=== PATIENT | female | born 1935 | race Caucasian/White ===

== ENCOUNTER 2018-07-01 19:29 | Inpatient (IN) | payer MEDICARE, BC ==
[~2018-07-01] VITALS: Ht 165.1 cm; Wt 72.1 kg
[~2018-07-01 19:29] MED LIST: ASPI-869 PO; BACL10TA PO; CHOL100044 PO; FURO20TA4 PO; LEVO88TA5 PO; METO25TA3 PO; MULT-24 PO; VALS80TA2 PO; [UNRECOGNIZED DRUG - CODE] PO
--- NOTE | 2018-07-01 19:29 | NUR ---
BBRA FROM HOME C/C PRESSURE LIKE CP NON RADIATING SINCE 1500 S/P TAKING 2 CBP OILD DROPS. +N/-V/-SOB. PRESSURE IN NECK/HEAD. PT IS HYPERTENSIVE BUT OTHERWISE VSS NO ACUTE DISTRESS NOTED AT THIS TIME. BREATHING RATE WNL WITH 02 SATURATION 94% ON BUT WILL PLACE ON 02. SKIN WARM AND INTACT. WILL CONTINUE TO MONITOR FOR ANY CHANGES DURING THE SHIFT.
--- NOTE | 2018-07-01 19:30 | NUR ---
ER MD RODRIGUEZ AT BEDSIDE
[2018-07-01 20:30] LABS: HEMATOCRIT 35 % (33-45); HEMOGLOBIN 12.2 g/dL (11.5-14.8); MEAN CORPUSCULAR HEMOGLOBIN 32 PG (26.0-33.0); MEAN CORPUSCULAR HGB CONC 35 g/dl (31.0-36.0); MEAN CORPUSCULAR VOLUME 93 fL (82-100); PLATELET COUNT (AUTO) 171 /CMM (150-450); WHITE BLOOD COUNT (AUTO) 9.2 K/uL (4.3-11.0)
--- NOTE | 2018-07-01 20:30 | NUR ---
BLOOD SENT TO LAB
--- NOTE | 2018-07-01 20:35 | NUR ---
PT OFF TO CT
[2018-07-01 20:39] LABS: CALCIUM, SERUM 8.7 mg/dL (8.5-10.1); CARBON DIOXIDE 34 mmol/L (21-32); CHLORIDE 104 mmol/L (98-107); GLUCOSE 151 mg/dL (74-106); POTASSIUM 5.3 mmol/L (3.5-5.1); SODIUM SERUM 139 mmol/L (136-145); UREA NITROGEN, BLOOD 46 mg/dL (7-18)
--- NOTE | 2018-07-01 20:40 | NUR ---
PT BACK FROM CT
[2018-07-01 20:43] LABS: INR 0.89 (0.85-1.15)
--- NOTE | 2018-07-01 20:49 | NUR ---
CALLED NURSING EGG PRODUCER AND REQUESTED A TELE BED FOR THIS PT.
--- NOTE | 2018-07-01 21:05 | NUR ---
PT IS ASSIGNED TO [facility]#: [id number], DX: ACUTE VERTIGO, AND ACCEPTING: KEMI PORTILLO DNP.
[2018-07-01 21:26] LABS: TROPONIN I 0.018 ng/mL (0.00-0.056)
[2018-07-01] MEDS ORDERED: ASPIRIN EC 325 MG TABLET.DR PO ONE ×2 (21:28→21:30)
--- NOTE | 2018-07-01 21:29 | NUR ---
CALLED [facility] FOR PANEL CALL AND KEMI PORTILLO WAS PAGED
[2018-07-01 21:42] LABS: BAND % (MANUAL) 1 % (0.0-5.0); EOSINOPHILS % (MANUAL) 2 % (0-4); LYMPHOCYTES % (MANUAL) 24 % (16-48); MONOCYTES % (MANUAL) 5 % (0-11.0); NEUTROPHILS % (MANUAL) 68 (42-76)
--- NOTE | 2018-07-01 21:52 | NUR ---
REPORT GIVEN TO ASHISH
[2018-07-01] MEDS ORDERED: CLON0.1T PO (21:55)
[2018-07-01 22:10] VITALS: BP 181/81
--- NOTE | 2018-07-01 22:20 | NUR ---
FREIGHT TEAM ASSOCIATELINE LEADER NOTES Received patient from ER around 2200 via stretcher accompanied by [facility] ER Nurse. Chief complaints of pressure in the head/neck/dizziness. Alert and oriented x4, verbally responsive. Denies any pain at the moment. Received patient on oxygen therapy @2LPM via nasal cannula. No SOB/labored breathing noted or reported. Not in any type of distress. Afebrile. Skin body assessment done. Pacemaker on left upper chest wall noted. Belongings checked by CREDIT NEGOTIATOR. Tele monitor shows: Sinus Rhythm; HR 63. IV on left antecubital #20g; patent and intact. SBp on the higher side. Will inform hospitalist kevin. Safety measures in place. Bed in locked and lowest position with call light within reach. Will continue to monitor and assess patient.
--- NOTE | 2018-07-01 22:30 | NUR ---
FAMILY CONTACT INFORMATION: Lawson (Son) [phone] Rica (dtr) [phone] Yolanda (dtr) [phone] Artie Subramanian (Cyber Transport Systems Specialist) [phone]
[2018-07-01 22:36] LABS: APPEARANCE,URINE CLEAR (CLEAR); BILIRUBIN,URINE NEGATIVE (NEGATIVE); BLOOD, URINE NEGATIVE Ery/uL (NEGATIVE); COLOR,URINE YELLOW (YELLOW); KETONES,URINE NEGATIVE (NEGATIVE); LEUKOCYTE ESTERASE ,URINE TRACE (NEGATIVE); NITRITE, URINE NEGATIVE (NEGATIVE); PROTEIN,URINE NEGATIVE (NEGATIVE); UGLUCOSE NEGATIVE (NEGATIVE); UROBILINOGEN,URINE 0.2 EU/dL (0.2)
[2018-07-01 23:04] LABS: BACTERIA,URINE None seen /HPF (None Seen); RBC,URINE NONE SEEN /HPF (0-2); SQUAMOUS EPITHELIAL CELL,UR Few /HPF (None Seen); WBC,URINE 0-2 /HPF (0-3)
--- NOTE | 2018-07-01 23:07 | NUR ---
NURSES' ASSOCIATION EXECUTIVE DIRECTOR NOTES Paged Nery Singh DNP for new admit orders. Awaiting for call back and orders
[2018-07-01] MEDS ORDERED: IV NS 0.9% 1,000 ML IV PRN (23:11)
--- NOTE | 2018-07-01 23:29 | NUR ---
INSPECTOR CRYSTAL - NEW ORDER NOTES Nery Singh made aware of SBP 180s. Received a new order of Hydralazine 25mg PO Once for high blood pressure.
[2018-07-01] MEDS ORDERED: Z GUARD REMEDY 2 OZ OINT TP PRN (23:30)
[2018-07-01] MEDS ORDERED: hydrALAZINE HCL 25 MG TABLET PO SCH (23:30)
[2018-07-02] VITALS (7 sets, daily range): BP systolic 146–190; BP diastolic 61–95
--- NOTE | 2018-07-02 00:30 | NUR ---
DATA ENTRY MANAGER - REASSESSMENT NOTES BP: 161/78 P: 64 BP is trending down down. Will continue to monitor patient
[2018-07-02 07:27] LABS: BASOPHILS % (AUTO) 0.2 % (0.0-2.0); EOSINOPHILS % (AUTO) 2.4 % (0.0-6.0); HEMATOCRIT 33 % (33-45); HEMOGLOBIN 11.2 g/dL (11.5-14.8); LYMPHOCYTES # (AUTO) 1.3 /CMM (0.8-4.8); LYMPHOCYTES % (AUTO) 19.9 % (20.0-44.0); MEAN CORPUSCULAR HEMOGLOBIN 32 PG (26.0-33.0); MEAN CORPUSCULAR HGB CONC 34 g/dl (31.0-36.0); MEAN CORPUSCULAR VOLUME 95 fL (82-100); MONOCYTES # (AUTO) 0.5 /CMM (0.1-1.30); MONOCYTES % (AUTO) 6.7 % (2.0-12.0); NEUTROPHILS # (AUTO) 4.8 /CMM (1.8-8.9); NEUTROPHILS % (AUTO) 70.8 % (43.0-81.0); PLATELET COUNT (AUTO) 154 /CMM (150-450); RDW COEFFICIENT OF VARIATION 12.9 (11.5-15.0); RED BLOOD CELL COUNT(AUTO) 3.46 MIL/uL (4.0-5.2); WHITE BLOOD COUNT (AUTO) 6.7 K/uL (4.3-11.0)
[2018-07-02 07:48] LABS: ALANINE AMINOTRANSFERASE 15 U/L (12-78); ALBUMIN 3.2 g/dL (3.4-5.0); ALKALINE PHOSPHATASE 65 U/L (46-116); ASPARTATE AMINOTRANSFERASE 17 U/L (15-37); BILIRUBIN,TOTAL 0.3 mg/dL (0.2-1.0); CALCIUM, SERUM 8.5 mg/dL (8.5-10.1); CARBON DIOXIDE 34 mmol/L (21-32); CHLORIDE 103 mmol/L (98-107); CREATININE 1.7 mg/dL (0.6-1.3); GLUCOSE 92 mg/dL (74-106); MAGNESIUM 2.4 mg/dL (1.8-2.4); PHOSPHORUS 4.2 mg/dL (2.5-4.9); POTASSIUM 4.5 mmol/L (3.5-5.1); SODIUM SERUM 139 mmol/L (136-145); TOTAL PROTEIN, SERUM 6.7 g/dL (6.4-8.2); UREA NITROGEN, BLOOD 45 mg/dL (7-18)
[2018-07-02 07:51] LABS: CHOLESTEROL 262 mg/dL (<200); HDL CHOLESTEROL 60 mg/dL (40-60); LDL 153 mg/dL (0-99); THYROID STIMULATING HORMONE 0.883 uIU/mL (0.358-3.74); TRIGLYCERIDES 185 mg/dL (30-150)
[2018-07-02] MEDS: CHOLECALCIFEROL 1,000 UNIT TABLET (VIT D3) PO SCH (08:10)
[2018-07-02] MEDS: MULTIVITAMINS,THERAGRAN 1 UDTAB TABLET PO SCH (08:10)
[2018-07-02] MEDS: LEVOTHYROXINE SODIUM 88 MCG TABLET PO SCH (08:10)
[2018-07-02] MEDS: VALSARTAN 80 MG TABLET PO SCH ×2 (08:10→20:12)
[2018-07-02] MEDS: ASPIRIN EC 325 MG TABLET.DR PO SCH (08:11)
[2018-07-02] MEDS: FUROSEMIDE 20 MG TABLET PO SCH (08:11)
[2018-07-02] MEDS: METOPROLOL SUCCINATE 25 MG TAB.SR.24H PO SCH ×2 (08:11→20:12)
--- NOTE | 2018-07-02 08:30 | NUR ---
PATIENT'S BP IS 190/90 MANUALLY. BLOOD PRESSURE MEDICATIONS ADMINISTERED AT THIS TIME. WILL CONTINUE TO MONITOR.
--- NOTE | 2018-07-02 09:00 | NUR ---
PATIENT'S BP IS 158/73, IS TRENDING DOWN . WILL CONTINUE TO MONITOR FOR CHANGES.
--- NOTE | 2018-07-02 09:28 | NUR ---
PARKING TECHNICIAN OPENING NOTE RECEIVED PATIENT IN BED. ALERT ORIENTED X4. ON 2L O2 VIA NC TOLERATING WELL. IN NO APPARENT DISTRESS OR DISCOMFORT AT THIS TIME. RESPIRATIONS EVEN AND UNLABORED. ABLE TO COMMUNICATE NEEDS. MADDY PAIN AND SOB AT THIS TIME. PATIENT ON TELE MONITORING WITH SINUS RHYTHM. PACEMAKER IN PLACE ON LEFT UPPER CHEST WALL. LEFT AC 20G IVC AT 75 ML/HR. EDEMA PRESENT ON BLE. ALL NEEDS ATTENDED. KEPT CLEAN AND COMFORTABLE. SAFETY MEASURES IN PLACE. BED IN LOW LOCKED POSITION, SIDE RAILS UP X2, CALL LIGHT WITHIN EASY REACH. WILL CONTINUE TO MONITOR.
[2018-07-02] MEDS: CLONIDINE HCL 0.1 MG TABLET PO PRN ×2 (14:19→21:10)
[2018-07-02] MEDS ORDERED: CLONIDINE HCL 0.1 MG TABLET PO SCH (18:00)
--- NOTE | 2018-07-02 19:46 | NUR ---
PRORATE CLERK CLOSING NOTE PATIENT IN BED. ALERT ORIENTED X4. ON ROOM AIR, TOLERATING WELL. IN NO APPARENT DISTRESS OR DISCOMFORT AT THIS TIME. RESPIRATIONS EVEN AND UNLABORED. ABLE TO COMMUNICATE NEEDS. MADDY PAIN AND SOB AT THIS TIME. PATIENT ON TELE MONITORING WITH SINUS RHYTHM AND OCCASIONAL AV PACING. PACEMAKER IN PLACE ON LEFT UPPER CHEST WALL. LEFT AC 20G IVC AT 75 ML/HR. EDEMA PRESENT ON BLE, IMPROVED SIGNIFICANTLY WITH LASIX. ABLE TO USE BATHROOM INDEPENDENTLY, BEDSIDE COMMODE PROVIDED FOR CONVENIENCE. ALL NEEDS ATTENDED. KEPT CLEAN AND COMFORTABLE. SAFETY MEASURES IN PLACE. BED IN LOW LOCKED POSITION, SIDE RAILS UP X2, CALL LIGHT WITHIN EASY REACH. WILL ENDORSE TO PM NURSE FOR RENAE.
--- NOTE | 2018-07-02 19:59 | NUR ---
TELE/RN OPENING NOTES RECEIVED PATIENT IN BED, AWAKE, ALERT, X3, ABLE TO FOLLOW COMMANDS AND VERBALIZED NEEDS, NO PAIN REPORTED, VITAL SIGNS CHECK, TELE MONITOR AT SR 68, WITH PACE MAKER OF LCW, B/P ELEVATED , WILL MONITOR, SKIN WARM TO TOUCH, ABLE TO TOLERATE FLUIDS, LEFT AC GAUGE 20 PATENT AND WITH NO S/S OF INFILTRATION, WILL CONTINUE TO MONITOR.
--- NOTE | 2018-07-02 21:14 | NUR ---
TELE/RN NOTES PATIENT RE CHECK B/P STILL ELEVATED AT 200/70, ALERT, ORIENTED, GIVEN PRN CLONIDINE IF SBP > 160, ABLE TO SWALLOW, ATTEND TO NEEDS, AND CONCERNS, ABLE TO VERBALIZE NEEDS, WILL MONITOR.
[2018-07-02] MEDS: ONDANSETRON HCL/PF 4 MG/2 ML VIAL IVP PRN (21:26)
--- NOTE | 2018-07-02 21:33 | NUR ---
tele/rn notes PATIENT REPORTED HAVING NAUSEA, HAD ONE VOMITING EPISODE, PROVIDED NEEDED ZOFRAN, KEEP COMFORTABLE, WILL MONITOR
[2018-07-02] MEDS ORDERED: BACLOFEN (10 MG) 10 MG TABLET PO SCH (22:00)
[2018-07-02] MEDS: ACETAMINOPHEN 325 MG TABLET PO PRN (22:12)
[2018-07-03 04:00] VITALS: BP_SYST 118; BP_SYST 156; BP_DIAS 66; BP_DIAS 72
[2018-07-03] MEDS: ACETAMINOPHEN 325 MG TABLET PO PRN (04:22)
[2018-07-03] MEDS: ONDANSETRON HCL/PF 4 MG/2 ML VIAL IVP PRN (04:22)
[2018-07-03 05:05] VITALS: BP 123/69
[2018-07-03 07:16] LABS: BASOPHILS % (AUTO) 0.3 % (0.0-2.0); EOSINOPHILS % (AUTO) 2.6 % (0.0-6.0); HEMATOCRIT 31 % (33-45); HEMOGLOBIN 10.5 g/dL (11.5-14.8); LYMPHOCYTES # (AUTO) 1.3 /CMM (0.8-4.8); LYMPHOCYTES % (AUTO) 17.5 % (20.0-44.0); MEAN CORPUSCULAR HEMOGLOBIN 32 PG (26.0-33.0); MEAN CORPUSCULAR HGB CONC 33 g/dl (31.0-36.0); MEAN CORPUSCULAR VOLUME 96 fL (82-100); MONOCYTES # (AUTO) 0.4 /CMM (0.1-1.30); MONOCYTES % (AUTO) 6.3 % (2.0-12.0); NEUTROPHILS # (AUTO) 5.3 /CMM (1.8-8.9); NEUTROPHILS % (AUTO) 73.3 % (43.0-81.0); PLATELET COUNT (AUTO) 148 /CMM (150-450); RDW COEFFICIENT OF VARIATION 12.7 (11.5-15.0); RED BLOOD CELL COUNT(AUTO) 3.27 MIL/uL (4.0-5.2); WHITE BLOOD COUNT (AUTO) 7.2 K/uL (4.3-11.0)
[2018-07-03 07:26] LABS: CALCIUM, SERUM 8.5 mg/dL (8.5-10.1); CARBON DIOXIDE 33 mmol/L (21-32); CHLORIDE 104 mmol/L (98-107); CREATININE 1.7 mg/dL (0.6-1.3); GLUCOSE 103 mg/dL (74-106); POTASSIUM 5.1 mmol/L (3.5-5.1); SODIUM SERUM 140 mmol/L (136-145); UREA NITROGEN, BLOOD 37 mg/dL (7-18)
--- NOTE | 2018-07-03 07:40 | NUR ---
329-1 TELE/RN NOTES PATIENT ABLE TO SLEEP FEW HOURS, MONITORED FOR ANY PAIN OR DISCOMFORT, B/P CHECK AND RECORDER, ZOFRAN GIVEN FOR NAUSEA. CALL LIGHTS WITHIN REACH, BED IN LOCK POSITION. WILL MONITOR.
--- NOTE | 2018-07-03 07:56 | NUR ---
MARINE FIRE FIGHTER OPENING NOTES RECEIVED PT FROM NIGHTSHIFT NURSE IN STABLE CONDITION. PT IS A/O X4. NO SOB OR SIGNS OF ACUTE DISTRESS NOTED. BREATHING IS EVEN AND UNLABORED. PT ON RA AND SATING WELL. SHE DENIES ANY DIZZINESS OR WEAKNESS AT THIS TIME. IV TO LEFT AC NOTED TO BE PATENT AND INTACT. NS INFUSION HELD AT THIS TIME PER PT'S REQUEST. PT IS SINUS RHYTHM ON THE TELE MONITOR WITH A HR OF 65. BED IN LOW LOCKED POSITION, SIDE RAILS UP Z2, CALL LIGHT WITHIN REACH. WILL CONTINUE TO MONITOR
[2018-07-03 08:00] VITALS: BP 125/56
[2018-07-03] MEDS: MULTIVITAMINS,THERAGRAN 1 UDTAB TABLET PO SCH (08:21)
[2018-07-03] MEDS: FUROSEMIDE 20 MG TABLET PO SCH (08:21)
[2018-07-03] MEDS: ASPIRIN EC 325 MG TABLET.DR PO SCH (08:21)
[2018-07-03] MEDS: LEVOTHYROXINE SODIUM 88 MCG TABLET PO SCH (08:21)
[2018-07-03] MEDS: CHOLECALCIFEROL 1,000 UNIT TABLET (VIT D3) PO SCH (08:22)
[2018-07-03] MEDS: METOPROLOL SUCCINATE 25 MG TAB.SR.24H PO SCH (08:22)
[2018-07-03] MEDS: VALSARTAN 80 MG TABLET PO SCH (08:25)
[2018-07-03] MEDS ORDERED: ATOR20TA PO (10:11)
[2018-07-03] MEDS ORDERED: LOSA1TAB39 PO (10:11)
[2018-07-03 11:30] VITALS: BP 124/61
--- NOTE | 2018-07-03 11:59 | NUR ---
PROCESS IMPROVEMENT ENGINEERSULKY DRIVER NOTES PT WAS DISCHARGED FROM FACILITY IN STABLE CONDITION. ALL NEEDS WERE MET DURING SHIFT AND ORDERS CARRIED OUT ACCORDINGLY. ALL DUE MEDS GIVEN. IV WAS SUCCESSFULLY REMOVED WITH CATHETER TIP INTACT. DISCHARGE INSTRUCTIONS DISCUSSED WITH PT. PT SIGNED ALL D/C PAPERWORK. BELONGINGS VERIFIED PRIOR TO D/C. COPIES OF ALL D/C PAPERWORK INCLUDING PRESCRIPTION MADE AND PLACED IN PT'S CHART. SHE WAS SAFELY ESCORTED TO THE MAIN LOBBY BY THE ASSOCIATE DRAFTER AND LEFT VIA PRIVATE VEHICLE DRIVEN BY HER SON.
== END 2018-07-03 10:00 | disposition home or self-care (01) | DRG 304 ==
LOC: ER 19:30 → TELE 21:38
PROVIDERS: ADMIT Nurse Practitioner Acute Care; ATTEND Nurse Practitioner Acute Care
DX: I16.9 Hypertensive crisis, unspecified (principal); N17.0 Acute kidney failure with tubular necrosis; I42.2 Other hypertrophic cardiomyopathy; H81.10 Benign paroxysmal vertigo, unspecified ear; N18.9 Chronic kidney disease, unspecified; I12.9 Hypertensive chronic kidney disease with stage 1 through stage 4 chronic kidney disease, or unspecified chronic kidney disease; I25.10 Atherosclerotic heart disease of native coronary artery without angina pectoris; E87.5 Hyperkalemia; E03.9 Hypothyroidism, unspecified; M19.90 Unspecified osteoarthritis, unspecified site; Z88.5 Allergy status to narcotic agent; Z91.040 Latex allergy status; Z91.011 Allergy to milk products; Z79.82 Long term (current) use of aspirin; Z79.899 Other long term (current) drug therapy; R01.1 Cardiac murmur, unspecified; E86.9 Volume depletion, unspecified; T46.5X5A Adverse effect of other antihypertensive drugs, initial encounter; Y92.009 Unspecified place in unspecified non-institutional (private) residence as the place of occurrence of the external cause
CPT/HCPCS: 36415; 70450-TC; 71045-TC; 80048-TC; 80053-TC; 80061-TC; 81000-TC; 82962-TC; 83605-TC; 83735-TC; 84100-TC; 84443-TC; 84484-TC; 85025-TC; 85730-TC; 87081-TC; 93307-TC; A4606; J2405; J7030; Z7610

== ENCOUNTER 2018-07-28 00:24 | Inpatient (IN) | payer MEDICARE, BC ==
[~2018-07-28] VITALS: Ht 170.2 cm; Wt 72.1 kg
[~2018-07-28 00:24] MED LIST changes: +ATOR20TA PO; +CLON0.1T PO; +LOSA1TAB39 PO; -VALS80TA2 PO
--- NOTE | 2018-07-28 00:38 | NUR ---
PT TO ER BED 4. BIBRA 99 FOR WITNESSED SYNCOPAL EPISODE BY FAM X 30 MINS GANG SAW OPERATOR. FIELD BS 150. PT PLACED IN GOWN AND ON BOX TRUCK OWNER OPERATOR. VSS/RESP EVEN UNLABORED/NAD NOTED/SKIN WARM AND DRY/AFEBRILE/DENIES N-V-D/AOX4. AWAITNG MD ALBRECHT.
[2018-07-28] MEDS ORDERED: VALS160T2 PO (00:53)
[2018-07-28] MEDS ORDERED: METO100T14 PO (00:53)
[2018-07-28] MEDS ORDERED: BACL10TA PO (00:53)
[2018-07-28] MEDS ORDERED: LEVO100T9 PO (00:53)
[2018-07-28] MEDS ORDERED: ALPR0.5T8 PO (00:53)
--- NOTE | 2018-07-28 00:53 | NUR ---
LAB AT BEDSIDE FOR DRAW.
[2018-07-28 01:01] LABS: BASOPHILS % (AUTO) 0.2 % (0.0-2.0); EOSINOPHILS % (AUTO) 1.6 % (0.0-6.0); HEMATOCRIT 35 % (33-45); HEMOGLOBIN 11.9 g/dL (11.5-14.8); LYMPHOCYTES # (AUTO) 1.3 /CMM (0.8-4.8); LYMPHOCYTES % (AUTO) 14.9 % (20.0-44.0); MEAN CORPUSCULAR HGB CONC 35 g/dl (31.0-36.0); MEAN CORPUSCULAR VOLUME 92 fL (82-100); MONOCYTES # (AUTO) 0.5 /CMM (0.1-1.30); MONOCYTES % (AUTO) 5.7 % (2.0-12.0); NEUTROPHILS # (AUTO) 6.8 /CMM (1.8-8.9); NEUTROPHILS % (AUTO) 77.6 % (43.0-81.0); PLATELET COUNT (AUTO) 209 /CMM (150-450); RDW COEFFICIENT OF VARIATION 12.4 (11.5-15.0); RED BLOOD CELL COUNT(AUTO) 3.76 MIL/uL (4.0-5.2); WHITE BLOOD COUNT (AUTO) 8.8 K/uL (4.3-11.0)
--- NOTE | 2018-07-28 01:01 | NUR ---
PT TO CT VIA STRETCHER.
[2018-07-28 01:09] LABS: INR 0.94 (0.87-1.13)
[2018-07-28 01:11] LABS: TROPONIN I 0.035 ng/mL (0.00-0.056)
[2018-07-28 01:17] LABS: ALANINE AMINOTRANSFERASE 63 U/L (12-78); ALBUMIN 3.2 g/dL (3.4-5.0); ALKALINE PHOSPHATASE 70 U/L (46-116); ASPARTATE AMINOTRANSFERASE 60 U/L (15-37); BILIRUBIN,DIRECT 0.1 mg/dL (0.0-0.2); BILIRUBIN,TOTAL 0.7 mg/dL (0.2-1.0); CALCIUM, SERUM 8.5 mg/dL (8.5-10.1); CARBON DIOXIDE 30 mmol/L (21-32); CREATININE 1.4 mg/dL (0.6-1.3); GLUCOSE 127 mg/dL (74-106); POTASSIUM 3.4 mmol/L (3.5-5.1); TOTAL PROTEIN, SERUM 6.5 g/dL (6.4-8.2); UREA NITROGEN, BLOOD 32 mg/dL (7-18)
[2018-07-28 01:22] LABS: SODIUM SERUM 112 mmol/L (136-145)
[2018-07-28 01:23] LABS: CHLORIDE 75 mmol/L (98-107)
--- NOTE | 2018-07-28 02:40 | NUR ---
Luis oneill in [facility] - 07/28/18 at 0307 by RISHI JEFRY TO REPORT REJI YUAN FOR RENAE.
--- NOTE | 2018-07-28 02:40 | NUR ---
REPORT GIVEN TO REJI YUAN FOR RENAE.
[2018-07-28] MEDS ORDERED: ALBUTEROL HALF STRENGTH 1.25 MG/3 ML VIAL.NEB NEB PRN (03:00)
[2018-07-28] MEDS ORDERED: IV PREMIX NS +20MEQ KCL 1 L IV PRN (03:00)
--- NOTE | 2018-07-28 03:00 | NUR ---
RN ADMITTING [facility] NOTE RECEIVED 83YR OLD F AOX3 SLIGHTLY WEAK, ABLE TO ANSWER QUESTIONS, FROM ER, REPORT GIVEN BY ISAC ZELAYA RN, PT BB AFTER FAMILY WITNESSED SYNCOPE [id number], ADMITTED FOR SYNCOPE/HYPONATREMIA, Na 112 L, K+ 3.5. W/LCW PACE MAKER, EKG IN ER NSR PACING 63, LAC#20G, SKIN ISSUES NOTED, PHOTOS TAKEN AND FILED. DR KIM ADMITTING ORDERS ENTERED/ PROTOCOL IV PRMIXX1 NS 20MEQ@75ML/HR.APRESOLINE 25MG PO GIVEN FOR BP 178/71 63. ALL NEEDS MET, WILL CONT TO MONITOR.
--- NOTE | 2018-07-28 03:07 | NUR ---
PT TRANSPORTED VIA STRETCHER TO [facility] ON PLANT SAFETY LEADER WITH RN PER ACLS PROTOCOL.
[2018-07-28 03:32] VITALS: BP 178/71
[2018-07-28 04:00] VITALS: BP 160/66
[2018-07-28] MEDS ORDERED: IV PREMIX NS +20MEQ KCL 1 L IV ONE (04:01)
[2018-07-28] MEDS: hydrALAZINE HCL 10 MG TABLET PO PRN ×2 (04:37→12:02)
--- NOTE | 2018-07-28 06:07 | NUR ---
RN [facility] CLOSING NOTE ALL NEEDS MET, SAFETY AND ADMITTING ORDERS CARRIED OUT, WILL ENDORSE PT FOR RENAE. PT MORE AWAKE, ABLE TO COMMUNICATE NEEDS VERBALLY, W/USE OF CL.
[2018-07-28 06:37] LABS: BASOPHILS % (AUTO) 0.1 % (0.0-2.0); EOSINOPHILS % (AUTO) 0.4 % (0.0-6.0); HEMATOCRIT 36 % (33-45); HEMOGLOBIN 12.2 g/dL (11.5-14.8); LYMPHOCYTES % (AUTO) 6.8 % (20.0-44.0); MEAN CORPUSCULAR HGB CONC 34 g/dl (31.0-36.0); MEAN CORPUSCULAR VOLUME 92 fL (82-100); MONOCYTES # (AUTO) 0.8 /CMM (0.1-1.30); MONOCYTES % (AUTO) 5.3 % (2.0-12.0); NEUTROPHILS # (AUTO) 12.6 /CMM (1.8-8.9); NEUTROPHILS % (AUTO) 87.4 % (43.0-81.0); PLATELET COUNT (AUTO) 212 /CMM (150-450); RDW COEFFICIENT OF VARIATION 12.6 (11.5-15.0); RED BLOOD CELL COUNT(AUTO) 3.91 MIL/uL (4.0-5.2); WHITE BLOOD COUNT (AUTO) 14.4 K/uL (4.3-11.0)
[2018-07-28 06:56] LABS: CALCIUM, SERUM 8.5 mg/dL (8.5-10.1); CARBON DIOXIDE 29 mmol/L (21-32); CREATININE 1.5 mg/dL (0.6-1.3); GLUCOSE 108 mg/dL (74-106); MAGNESIUM 1.9 mg/dL (1.8-2.4); PHOSPHORUS 3.7 mg/dL (2.5-4.9); UREA NITROGEN, BLOOD 30 mg/dL (7-18)
[2018-07-28 07:05] LABS: IRON, SERUM 88 ug/dl (50-175); TOTAL IRON BINDING CAPACITY 301 ug/dl (250-450)
[2018-07-28 07:37] LABS: CHLORIDE 77 mmol/L (98-107); SODIUM SERUM 112 mmol/L (136-145)
[2018-07-28] MEDS: LEVOTHYROXINE SODIUM 88 MCG TABLET PO SCH (07:44)
[2018-07-28] MEDS: PANTOPRAZOLE 40 MG TABLET.DR PO SCH (07:44)
--- NOTE | 2018-07-28 07:45 | NUR ---
RN NOTE RECEIVED PATIENT ALERT AND ORIENTED X3, SHE IS ABLE TO MAKE THINGS KNOWN AND VERBALIZE NEEDS. BREATHING EVEN AND UNLABORED WITH NO DISTRESS NOTED. ON PYTHON PROGRAMMER SINUS RHYTHM WITH 1ST DEGREE AV BLOCK. IV SITE INTACT AND PATENT. ALL SAFETY MEASURES DONE. BED LOW AND LOCKED POSITION. PLACED CALL LIGHT WITHIN REACH. WILL CONTINUE TO MONITOR.
[2018-07-28 08:00] VITALS: BP 146/66
[2018-07-28] MEDS: ASPIRIN EC 81 MG TABLET.DR PO SCH (08:09)
[2018-07-28] MEDS: METOPROLOL TARTRATE 50 MG TABLET PO SCH ×2 (08:10→21:37)
[2018-07-28 12:00] VITALS: BP 155/68
--- NOTE | 2018-07-28 12:05 | NUR ---
RN NOTE PATIENT SBP IS 183, HYDRALAZINE 25MG GIVEN PRN. WILL CONTINUE TO MONITOR B/P
--- NOTE | 2018-07-28 12:35 | NUR ---
RN NOTE PATIENT SBP 155, PATENT REMAINED STABLE WILL CONTINUE TO MONITOR.
[2018-07-28] MEDS ORDERED: IV Sodium Chloride 3% 500 ML 500 ML IV ONE (13:30)
--- NOTE | 2018-07-28 14:00 | NUR ---
RN NOTE REPORT GIVEN TO CARRIE FOR CONTINUITY OF CARE.
--- NOTE | 2018-07-28 14:15 | NUR ---
PROCESSING MANAGER NOTE RECEIVED PATIENT IN STABLE CONDITION RESTING IN BED. ABLE TO MAKE NEEDS KNOWN. IV SITE ON LEFT AC INTACT. BED LOW AND LOCKED, CALL LIGHT WITHIN REACH, WILL CONTINUE TO MONITOR.
[2018-07-28] MEDS: ACETAMINOPHEN 325 MG TABLET PO PRN (14:19)
[2018-07-28 16:00] VITALS: BP 160/77
--- NOTE | 2018-07-28 17:15 | NUR ---
Patient is alert and pleasant,lives at home with her family, she is ambulatory and independent with ADLs. No DME or homehealth reported. Family is involved and supportive, they will provide ride when discharge. Addendum: 07/28/18 at 1716 by BHAVNA MACIEL RN Amended: Links added.
--- NOTE | 2018-07-28 19:54 | NUR ---
ASSET PROTECTION SPECIALIST CLOSING NOTE PATIENT RESTING IN BED, ALL NEEDS MET AT THIS TIME. NO RESPIRATORY DISTRESS NOTED, ON ROOM AIR. IV SITE ON LEFT AC INTACT INFUSING 3% SODIUM CHLORIDE. BED LOW AND LOCKED, CALL LIGHT WITHIN REACH. WILL ENDORSE TO ONCOMING NURSE FOR CONTINUITY OF CARE.
[2018-07-28 20:00] VITALS: BP 135/63
--- NOTE | 2018-07-28 20:55 | NUR ---
RN MS INITIAL NOTE RECEIVED PATIENT IN STABLE CONDITION RESTING IN BED. ABLE TO MAKE NEEDS KNOWN. IV SITE ON LEFT AC INTACT, ON 3%NS@30ML/HR, WELL SILVIA, Na 113. BED LOW AND LOCKED, CALL LIGHT WITHIN REACH, WILL CONTINUE TO MONITOR.
[2018-07-28] MEDS ORDERED: EZETIMIBE 10 MG TABLET PO SCH (22:00)
[2018-07-28] MEDS ORDERED: ATORVASTATIN 10 MG TABLET PO SCH (22:00)
[2018-07-29] VITALS (8 sets, daily range): BP systolic 115–193; BP diastolic 54–89
[2018-07-29] MEDS: ACETAMINOPHEN 325 MG TABLET PO PRN ×3 (01:54→20:32)
[2018-07-29 06:30] LABS: BASOPHILS % (AUTO) 0.1 % (0.0-2.0); HEMATOCRIT 31 % (33-45); HEMOGLOBIN 10.7 g/dL (11.5-14.8); LYMPHOCYTES # (AUTO) 1.1 /CMM (0.8-4.8); LYMPHOCYTES % (AUTO) 14.3 % (20.0-44.0); MEAN CORPUSCULAR HGB CONC 34 g/dl (31.0-36.0); MEAN CORPUSCULAR VOLUME 92 fL (82-100); MONOCYTES # (AUTO) 0.8 /CMM (0.1-1.30); MONOCYTES % (AUTO) 10.5 % (2.0-12.0); NEUTROPHILS # (AUTO) 5.8 /CMM (1.8-8.9); NEUTROPHILS % (AUTO) 72.1 % (43.0-81.0); PLATELET COUNT (AUTO) 170 /CMM (150-450); RDW COEFFICIENT OF VARIATION 13.1 (11.5-15.0); RED BLOOD CELL COUNT(AUTO) 3.38 MIL/uL (4.0-5.2)
--- NOTE | 2018-07-29 06:32 | NUR ---
RN MS CLOSING NOTE ENDORSED PATIENT IN STABLE CONDITION, AOX4, RESTING IN BED. ABLE TO MAKE NEEDS KNOWN. IV SITE ON LEFT AC INTACT, ON 3%NS@30ML/HR, WELL SILVIA, VS STABLE. BED LOW AND LOCKED, CALL LIGHT WITHIN REACH, WILL CONTINUE TO MONITOR.
[2018-07-29 07:31] LABS: ALANINE AMINOTRANSFERASE 33 U/L (12-78); ALBUMIN 2.7 g/dL (3.4-5.0); ALKALINE PHOSPHATASE 64 U/L (46-116); ASPARTATE AMINOTRANSFERASE 29 U/L (15-37); BILIRUBIN,TOTAL 0.6 mg/dL (0.2-1.0); CALCIUM, SERUM 8.1 mg/dL (8.5-10.1); CARBON DIOXIDE 29 mmol/L (21-32); CHLORIDE 88 mmol/L (98-107); CREATININE 1.5 mg/dL (0.6-1.3); GLUCOSE 87 mg/dL (74-106); MAGNESIUM 1.8 mg/dL (1.8-2.4); PHOSPHORUS 3.5 mg/dL (2.5-4.9); POTASSIUM 3.8 mmol/L (3.5-5.1); SODIUM SERUM 121 mmol/L (136-145); TOTAL PROTEIN, SERUM 5.7 g/dL (6.4-8.2); UREA NITROGEN, BLOOD 27 mg/dL (7-18)
[2018-07-29 07:43] LABS: THYROID STIMULATING HORMONE 1.535 uIU/mL (0.358-3.74)
[2018-07-29] MEDS: LEVOTHYROXINE SODIUM 88 MCG TABLET PO SCH (08:36)
[2018-07-29] MEDS: ASPIRIN EC 81 MG TABLET.DR PO SCH (08:36)
[2018-07-29] MEDS: PANTOPRAZOLE 40 MG TABLET.DR PO SCH (08:36)
[2018-07-29] MEDS: METOPROLOL TARTRATE 50 MG TABLET PO SCH ×2 (08:37→20:32)
--- NOTE | 2018-07-29 09:00 | NUR ---
MED RN NOTES RECEIVED PATIENT ALERT AND ORIENTED X3, SHE IS ABLE TO MAKE THINGS KNOWN AND VERBALIZE NEEDS. BREATHING EVEN AND UNLABORED WITH NO DISTRESS NOTED. ON PULP GRINDER SINUS RHYTHM WITH 1ST DEGREE AV BLOCK. IV SITE INTACT AND PATENT. ALL SAFETY MEASURES DONE. BED LOW AND LOCKED POSITION. PLACED CALL LIGHT WITHIN REACH. WILL CONTINUE TO MONITOR
[2018-07-29 09:42] LABS: OSMOLALITY,URINE 224 mOS/kg (340-1090)
[2018-07-29 09:50] LABS: URINE SODIUM, RANDOM 34 mmol/l (40-220)
[2018-07-29 10:05] LABS: APPEARANCE,URINE SL CLOUDY (CLEAR); BILIRUBIN,URINE NEGATIVE (NEGATIVE); BLOOD, URINE NEGATIVE Ery/uL (NEGATIVE); COLOR,URINE YELLOW (YELLOW); KETONES,URINE NEGATIVE (NEGATIVE); LEUKOCYTE ESTERASE ,URINE 1+ (NEGATIVE); NITRITE, URINE NEGATIVE (NEGATIVE); PROTEIN,URINE NEGATIVE (NEGATIVE); UGLUCOSE NEGATIVE (NEGATIVE); UROBILINOGEN,URINE 0.2 EU/dL (0.2)
[2018-07-29 10:26] LABS: RBC,URINE 0-2 /HPF (0-2)
[2018-07-29 10:27] LABS: BACTERIA,URINE Many /HPF (None Seen); SQUAMOUS EPITHELIAL CELL,UR Few /HPF (None Seen); WBC,URINE 51-80 /HPF (0-3)
[2018-07-29] MEDS: IV NS 0.9% 1,000 ML IV PRN (12:47)
[2018-07-29] MEDS: hydrALAZINE HCL 10 MG TABLET PO PRN (17:57)
--- NOTE | 2018-07-29 19:28 | NUR ---
TRIPE WASHER CLOSING NOTES PATIENT COMFORTABLE IN BED WITH DAUGHTER AY BEDSIDE. B/P WITHIN NORMAL LIMITS. REPOSRT GIVEN TO ON COMING NURSE ALL NEW ORDERS INDORSED.
--- NOTE | 2018-07-29 19:40 | NUR ---
MS RN OPENING NOTES: RECEIVED PT ON ROOM AIR AND IS TOLERATING WELL. PT IS SITTING UP IN BED HAVING DINNER WITH FAMILY MEMBER AT BEDSIDE. PT IS COMPLAINING OF MILD HEADACHE AT THIS TIME. PT HAS IV ON L AC #20G AND IS BEING INFUSED WITH IV NS AT 75ML/HR. CALL LIGHT WITHIN PT'S REACH. BED KEPT IN LOW, LOCKED POSITION, AND SIDE RAILS X 2UP. WILL CONTINUE TO MONITOR PT.
--- NOTE | 2018-07-29 23:43 | NUR ---
MS RN NOTES: PAGED EPIC. AWAITING FOR CALL BACK. PT IS REQUESTING FOR A SLEEPING AID. PT HAS NOT SLEPT SINCE 2AM. PT WOULD REALLY LIKE TO GET SOME REST/SLEEP.
--- NOTE | 2018-07-30 00:08 | NUR ---
MS RN NOTES: SPOKE WITH DR. KIM. GOT ORDER FOR XANAX 0.5MG PO QHS PRN.
[2018-07-30] MEDS: ALPRAZOLAM 0.25 MG TABLET PO PRN ×2 (00:26→22:14)
--- NOTE | 2018-07-30 00:31 | NUR ---
MS RN NOTES: PT REALLY WANTS TO SLEEP. PT WAS ADMINISTERED XANAX 0.5MG PO. WILL CONTINUE TO MONITOR.
[2018-07-30] MEDS: IV NS 0.9% 1,000 ML IV PRN (00:53)
[2018-07-30] MEDS: ACETAMINOPHEN 325 MG TABLET PO PRN (03:11)
[2018-07-30 04:00] VITALS: BP 143/84
[2018-07-30] MEDS: ONDANSETRON HCL/PF 4 MG/2 ML VIAL IVP PRN ×3 (05:14→21:15)
--- NOTE | 2018-07-30 06:17 | NUR ---
MS RN CLOSING NOTES: ALL NEEDS WERE ATTENDED AND ANTICIPATED FOR. PT KEPT CLEAN, DRY, AND COMFORTABLE. PT IN SEMI MACHUCA'S POSITION AND IS WATCHING TELEVISION. IV REMAINS INTACT AND IS BEING INFUSED WITH IV NS AT 75ML/HR. BED ALARM ACTIVATED. PT HAS BILATERAL SCD PUMPS IN PLACE. CALL LIGHT WITHIN PT'S REACH. BED KEPT IN LOW, LOCKED POSITION, AND SIDE RAILS X 2UP. WILL ENDORSE TO AM NURSE FOR RENAE.
[2018-07-30 06:59] LABS: ALANINE AMINOTRANSFERASE 31 U/L (12-78); ALBUMIN 2.9 g/dL (3.4-5.0); ALKALINE PHOSPHATASE 63 U/L (46-116); ASPARTATE AMINOTRANSFERASE 25 U/L (15-37); BILIRUBIN,TOTAL 0.6 mg/dL (0.2-1.0); CALCIUM, SERUM 8.3 mg/dL (8.5-10.1); CARBON DIOXIDE 26 mmol/L (21-32); CHLORIDE 88 mmol/L (98-107); CREATININE 1.3 mg/dL (0.6-1.3); GLUCOSE 105 mg/dL (74-106); MAGNESIUM 1.9 mg/dL (1.8-2.4); PHOSPHORUS 3.1 mg/dL (2.5-4.9); POTASSIUM 4.2 mmol/L (3.5-5.1); SODIUM SERUM 121 mmol/L (136-145); UREA NITROGEN, BLOOD 24 mg/dL (7-18)
[2018-07-30 07:03] LABS: BASOPHILS % (AUTO) 0.4 % (0.0-2.0); EOSINOPHILS % (AUTO) 2.9 % (0.0-6.0); HEMATOCRIT 32 % (33-45); HEMOGLOBIN 10.8 g/dL (11.5-14.8); LYMPHOCYTES # (AUTO) 1.1 /CMM (0.8-4.8); LYMPHOCYTES % (AUTO) 13.5 % (20.0-44.0); MEAN CORPUSCULAR HGB CONC 34 g/dl (31.0-36.0); MEAN CORPUSCULAR VOLUME 93 fL (82-100); MONOCYTES # (AUTO) 0.7 /CMM (0.1-1.30); MONOCYTES % (AUTO) 7.9 % (2.0-12.0); NEUTROPHILS # (AUTO) 6.3 /CMM (1.8-8.9); NEUTROPHILS % (AUTO) 75.3 % (43.0-81.0); PLATELET COUNT (AUTO) 194 /CMM (150-450); RDW COEFFICIENT OF VARIATION 12.7 (11.5-15.0); RED BLOOD CELL COUNT(AUTO) 3.39 MIL/uL (4.0-5.2); WHITE BLOOD COUNT (AUTO) 8.4 K/uL (4.3-11.0)
--- NOTE | 2018-07-30 07:10 | NUR ---
MS RN NOTES PATIENT IN BED ALERT ORIENTED X3 .NO ACUTE DISTRESS NOTED. BREATHING UNLABORED. NO SOB NOTED. IV ACCESS PATENT AND INTACT. NO REDNESS OR SWELLING NOTED. SAFETY MEASURES IN PLACE. CALL LIGHT WITHIN REACH. WILL CONTINUE TO MONITOR ACCORDINGLY.
[2018-07-30 08:00] VITALS: BP 160/67
[2018-07-30] MEDS: ASPIRIN EC 81 MG TABLET.DR PO SCH (08:13)
[2018-07-30] MEDS: LEVOTHYROXINE SODIUM 88 MCG TABLET PO SCH (08:13)
[2018-07-30] MEDS: PANTOPRAZOLE 40 MG TABLET.DR PO SCH (08:13)
[2018-07-30] MEDS: METOPROLOL TARTRATE 50 MG TABLET PO SCH ×2 (08:14→21:15)
--- NOTE | 2018-07-30 10:41 | NUR ---
WOUND CARE CONSULT: PT PRESENTS WITH BRUISING AND SKIN TEAR TO RT ARM, PRESENT ON ADMISSION. PT IS INCONTINENT. ALL SKIN PROTECTION AND WOUND CARE RECOMMENDATIONS DISCUSSED WITH NURSING STAFF. WILL SEE PRN. LOPEZ IN AGREEMENT WITH PLAN OF CARE. Addendum: 07/30/18 at 1043 by KARLA MURRIETA WNDNU Amended: Links added.
[2018-07-30] MEDS ORDERED: Z GUARD REMEDY 2 OZ OINT TP PRN (11:00)
[2018-07-30] MEDS: Z GUARD REMEDY 2 OZ OINT TP SCH (11:50)
[2018-07-30] MEDS: hydrALAZINE HCL 10 MG TABLET PO PRN ×2 (15:45→22:25)
[2018-07-30 16:00] VITALS: BP_SYST 180; BP_DIAS 70; BP_DIAS 77
--- NOTE | 2018-07-30 17:43 | NUR ---
MS RN NOTES BLOOD PRESSURE RECHECKED NOTED 140/80, MD 65. NO ACUTE DISTRESS NOTED. PATIENT ALERT ORIENTED X 3. DENIED ANY PAIN. NO SOB NOTED.WILL CONTINUE TO MONITOR PATIENT.
--- NOTE | 2018-07-30 19:00 | NUR ---
MS RN NOTES PATIENT LYING IN BED, HOB ELEVATED, ALERT ORIENTED X 3. NO ACUTE DISTRESS NOTED. BREATHING UNLABORED. NO ACUTE DISTRESS NOTED. NO SOB NOTED. IV ACCESS PATENT AND INTACT, NO REDNESS, NO SWELLING NOTED. DENIED ANY PAIN. DUE MEDICATIONS GIVEN, NO ASE NOTED.NEEDS ATTENDED AND ANTICIPATED. CALL LIGHT WITHIN REACH. ENDORSED TO NIGHT NURSE FOR CONTINUITY OF CARE.
[2018-07-30 20:00] VITALS: BP 168/70
--- NOTE | 2018-07-30 20:00 | NUR ---
RN NOTES RECEIVED PATIENT REPORT FROM AM NURSE.PATIENT IN BED ALERT ORIENTED X3 .NO ACUTE DISTRESS, NO SOB NOTED AT THIS TIME. BREATHING UNLABORED. LEFT AC IV ACCESS PATENT AND INTACT. NO REDNESS OR SWELLING NOTED. LEFT CHEST WALL PACEMAKER IN PLACE. SAFETY MEASURES IN PLACE. BED IN LOWEST, LOCKED POSITION,CALL LIGHT WITHIN REACH. WILL CONTINUE TO MONITOR.
[2018-07-30 22:25] VITALS: BP 177/83
[2018-07-31] VITALS (7 sets, daily range): BP systolic 95–150; BP diastolic 42–65
[2018-07-31] MEDS: PANTOPRAZOLE 40 MG TABLET.DR PO SCH (08:03)
[2018-07-31] MEDS: ASPIRIN EC 81 MG TABLET.DR PO SCH (08:03)
[2018-07-31] MEDS: METOPROLOL TARTRATE 50 MG TABLET PO SCH ×2 (08:04→20:52)
[2018-07-31] MEDS: LEVOTHYROXINE SODIUM 88 MCG TABLET PO SCH (08:04)
[2018-07-31] MEDS: Z GUARD REMEDY 2 OZ OINT TP SCH (08:07)
[2018-07-31] MEDS: ACETAMINOPHEN 325 MG TABLET PO PRN ×2 (08:07→18:05)
[2018-07-31] MEDS ORDERED: LEVO88TA5 PO (09:50)
[2018-07-31] MEDS ORDERED: LOSA1TAB39 PO (09:50)
[2018-07-31 10:46] LABS: CALCIUM, SERUM 8.3 mg/dL (8.5-10.1); CARBON DIOXIDE 27 mmol/L (21-32); CHLORIDE 88 mmol/L (98-107); CREATININE 1.5 mg/dL (0.6-1.3); GLUCOSE 101 mg/dL (74-106); POTASSIUM 4.7 mmol/L (3.5-5.1); UREA NITROGEN, BLOOD 22 mg/dL (7-18)
[2018-07-31 10:48] LABS: SODIUM SERUM 119 mmol/L (136-145)
--- NOTE | 2018-07-31 10:54 | NUR ---
RN NOTES RECEIVED CALL FROM LAB REPORTING SODIUM LEVEL OF 119 CALLIE Rodriguez NOTIFIED AWAITING FOR ORDERS.
--- NOTE | 2018-07-31 11:00 | NUR ---
RN NOTES REPORTED SODIUM LEVEL TO DR. ALANIS ORDERS FOR 3% SODIUM CHLORIDE ORDERS NOTED AND CARRIED OUT.
[2018-07-31] MEDS ORDERED: IV Sodium Chloride 3% 500 ML 500 ML IV SCH (12:00)
--- NOTE | 2018-07-31 18:14 | NUR ---
RN NOTES PATIENT IN BED RESTING ALL DUE MEDICATIONS ADMINISTERED. ALL NEEDS MET. WILL ENDORSE CARE TO PM SHIFT.
[2018-08-01] MEDS: ALPRAZOLAM 0.25 MG TABLET PO PRN (03:22)
[2018-08-01 04:00] VITALS: BP 103/43
[2018-08-01 06:45] LABS: BASOPHILS % (AUTO) 0.3 % (0.0-2.0); EOSINOPHILS % (AUTO) 2.2 % (0.0-6.0); HEMATOCRIT 28 % (33-45); HEMOGLOBIN 9.5 g/dL (11.5-14.8); LYMPHOCYTES # (AUTO) 1.1 /CMM (0.8-4.8); LYMPHOCYTES % (AUTO) 14.1 % (20.0-44.0); MEAN CORPUSCULAR HGB CONC 35 g/dl (31.0-36.0); MEAN CORPUSCULAR VOLUME 93 fL (82-100); MONOCYTES # (AUTO) 0.6 /CMM (0.1-1.30); MONOCYTES % (AUTO) 8.5 % (2.0-12.0); NEUTROPHILS # (AUTO) 5.6 /CMM (1.8-8.9); NEUTROPHILS % (AUTO) 74.9 % (43.0-81.0); PLATELET COUNT (AUTO) 169 /CMM (150-450); RDW COEFFICIENT OF VARIATION 12.7 (11.5-15.0); RED BLOOD CELL COUNT(AUTO) 2.96 MIL/uL (4.0-5.2); WHITE BLOOD COUNT (AUTO) 7.5 K/uL (4.3-11.0)
[2018-08-01 07:19] LABS: ALANINE AMINOTRANSFERASE 18 U/L (12-78); ALBUMIN 2.6 g/dL (3.4-5.0); ALKALINE PHOSPHATASE 53 U/L (46-116); ASPARTATE AMINOTRANSFERASE 15 U/L (15-37); BILIRUBIN,TOTAL 0.4 mg/dL (0.2-1.0); CALCIUM, SERUM 8.2 mg/dL (8.5-10.1); CARBON DIOXIDE 28 mmol/L (21-32); CHLORIDE 96 mmol/L (98-107); CREATININE 1.6 mg/dL (0.6-1.3); GLUCOSE 86 mg/dL (74-106); MAGNESIUM 1.8 mg/dL (1.8-2.4); PHOSPHORUS 3.6 mg/dL (2.5-4.9); POTASSIUM 4.5 mmol/L (3.5-5.1); SODIUM SERUM 128 mmol/L (136-145); TOTAL PROTEIN, SERUM 5.4 g/dL (6.4-8.2); UREA NITROGEN, BLOOD 22 mg/dL (7-18)
[2018-08-01 08:00] VITALS: BP 116/76
[2018-08-01] MEDS: LEVOTHYROXINE SODIUM 88 MCG TABLET PO SCH (08:04)
[2018-08-01] MEDS: PANTOPRAZOLE 40 MG TABLET.DR PO SCH (08:04)
[2018-08-01] MEDS: ASPIRIN EC 81 MG TABLET.DR PO SCH (08:06)
[2018-08-01] MEDS: METOPROLOL TARTRATE 50 MG TABLET PO SCH (08:09)
[2018-08-01] MEDS: Z GUARD REMEDY 2 OZ OINT TP SCH (09:00)
[2018-08-01 12:00] VITALS: BP 172/77
[2018-08-01] MEDS: hydrALAZINE HCL 10 MG TABLET PO PRN (12:18)
[2018-08-01] MEDS: ACETAMINOPHEN 325 MG TABLET PO PRN (12:18)
[2018-08-01] MEDS ORDERED: METO50TA16 PO (14:46)
[2018-08-01] MEDS ORDERED: SODI100037 PO (14:50)
[2018-08-01] MEDS ORDERED: hydrALAZINE HCL IV 20 MG VIAL IV PRN (16:00)
[2018-08-01 16:38] VITALS: BP 158/79
[2018-08-01 17:35] VITALS: BP 146/69
[2018-08-02] MEDS ORDERED: SODIUM CHLORIDE 1000 MG TABLET.SOL PO SCH (09:00)
== END 2018-08-01 19:01 | disposition home or self-care (01) | DRG 682 ==
LOC: ER 00:26 → MEDSG1 02:48 → TELE-TD 03:16 → TELE1 08:16 → MEDSG1 16:16
PROVIDERS: ADMIT Internal Medicine; ATTEND Internal Medicine
DX: N17.0 Acute kidney failure with tubular necrosis (principal); G93.41 Metabolic encephalopathy; E87.1 Hypo-osmolality and hyponatremia; E86.0 Dehydration; R55 Syncope and collapse; E03.9 Hypothyroidism, unspecified; I25.10 Atherosclerotic heart disease of native coronary artery without angina pectoris; M19.90 Unspecified osteoarthritis, unspecified site; N18.9 Chronic kidney disease, unspecified; I12.9 Hypertensive chronic kidney disease with stage 1 through stage 4 chronic kidney disease, or unspecified chronic kidney disease; T50.2X5A Adverse effect of carbonic-anhydrase inhibitors, benzothiadiazides and other diuretics, initial encounter; Y92.89 Other specified places as the place of occurrence of the external cause; D64.9 Anemia, unspecified
CPT/HCPCS: 36415; 70450-TC; 71045-TC; 76770-TC; 80048-TC; 80053-TC; 80061-TC; 80076-TC; 81000-TC; 82533; 83540-TC; 83735-TC; 83935-TC; 84100-TC; 84295-TC; 84300-TC; 84439-TC; 84443-TC; 84484-TC; 85025-TC; 85730-TC; 87081-TC; 93307-TC; 93880-TC; 97110-TC; 97116-TC; 97530-TC; A4606; A6402; J0360; J2405; J3490; J7030; Z7610

== ENCOUNTER 2018-08-03 05:53 | Inpatient (IN) | payer MEDICARE, BC ==
[~2018-08-03] VITALS: Ht 165.1 cm; Wt 78.5 kg
[~2018-08-03 05:53] MED LIST changes: -ATOR20TA PO; -BACL10TA PO; -CHOL100044 PO; -CLON0.1T PO; -FURO20TA4 PO; -LOSA1TAB39 PO; +METO100T14 PO; -METO25TA3 PO; +METO50TA16 PO; -MULT-24 PO; +SODI100037 PO; -[UNRECOGNIZED DRUG - CODE] PO
--- NOTE | 2018-08-03 06:00 | NUR ---
PT BIBRA FOR GENERALIZED WEAKNESS AND FEELING SICK FOR ONE DAY. PT IS AAOX4, RESPIRATIONS EVEN AND UNLABORED. NO ACUTE DISTRESS NOTED. SKIN WARM AND INTACT. PT PLACED IN GOWN AND ON MONITOR
--- NOTE | 2018-08-03 06:18 | NUR ---
MD AT BEDSIDE FOR EVALUATION
[2018-08-03] MEDS ORDERED: IV NS 0.9% 500 ML BAG IV ONE (06:30)
--- NOTE | 2018-08-03 06:30 | NUR ---
PT PRESENTED WITH IV 18G LEFT HAND BY RA. LABS DRAWN FROM SITE. LAB CALLED FOR DISTRIBUTED GENERATION PROJECT MANAGER
--- NOTE | 2018-08-03 06:31 | NUR ---
RADIOLOGY AT BEDSIDE FOR XRAY
--- NOTE | 2018-08-03 06:44 | NUR ---
URINE COLLECTED AND PICKED UP BY LAB
[2018-08-03 06:54] LABS: APPEARANCE,URINE CLOUDY (CLEAR); BILIRUBIN,URINE NEGATIVE (NEGATIVE); BLOOD, URINE NEGATIVE Ery/uL (NEGATIVE); COLOR,URINE YELLOW (YELLOW); KETONES,URINE NEGATIVE (NEGATIVE); LEUKOCYTE ESTERASE ,URINE 1+ (NEGATIVE); NITRITE, URINE NEGATIVE (NEGATIVE); PROTEIN,URINE NEGATIVE (NEGATIVE); UGLUCOSE NEGATIVE (NEGATIVE); UROBILINOGEN,URINE 0.2 EU/dL (0.2)
[2018-08-03 07:01] LABS: CALCIUM, SERUM 8.7 mg/dL (8.5-10.1); CARBON DIOXIDE 25 mmol/L (21-32); CHLORIDE 89 mmol/L (98-107); CREATININE 2.1 mg/dL (0.6-1.3); GLUCOSE 97 mg/dL (74-106); SODIUM SERUM 123 mmol/L (136-145); UREA NITROGEN, BLOOD 33 mg/dL (7-18)
[2018-08-03 07:07] LABS: TROPONIN I 0.057 ng/mL (0.00-0.056)
[2018-08-03 07:13] LABS: ALANINE AMINOTRANSFERASE 31 U/L (12-78); ALBUMIN 3.2 g/dL (3.4-5.0); ALKALINE PHOSPHATASE 34 U/L (46-116); ASPARTATE AMINOTRANSFERASE 33 U/L (15-37); B-TYPE NATRIURETIC PEPTIDE 14292 PG/ML (0-125); BILIRUBIN,DIRECT 0.1 mg/dL (0.0-0.2); BILIRUBIN,TOTAL 0.8 mg/dL (0.2-1.0); TOTAL PROTEIN, SERUM 6.6 g/dL (6.4-8.2)
--- NOTE | 2018-08-03 07:23 | NUR ---
GAVE REPORT TO GUS FOR RENAE
--- NOTE | 2018-08-03 07:24 | NUR ---
RECEIVED REPORT FOR RENAE.
[2018-08-03 07:27] LABS: INR 0.93 (0.87-1.13)
[2018-08-03] MEDS ORDERED: CEFTRIAXONE 1GM BAG (ER ONLY) 50 ML IV ONE (07:30)
[2018-08-03] MEDS ORDERED: AZITHROMYCIN 500 MG in IV D5W 250 ML IV ONE (07:30)
[2018-08-03 07:31] LABS: BACTERIA,URINE Moderate /HPF (None Seen); RBC,URINE 0-2 /HPF (0-2); SQUAMOUS EPITHELIAL CELL,UR Few /HPF (None Seen); WBC,URINE 21-50 /HPF (0-3)
[2018-08-03 07:32] LABS: HEMATOCRIT 33 % (33-45); HEMOGLOBIN 11.8 g/dL (11.5-14.8); MEAN CORPUSCULAR HGB CONC 36 g/dl (31.0-36.0); MEAN CORPUSCULAR VOLUME 91 fL (82-100); PLATELET COUNT (AUTO) 211 /CMM (150-450); RED BLOOD CELL COUNT(AUTO) 3.62 MIL/uL (4.0-5.2); WHITE BLOOD COUNT (AUTO) 10.1 K/uL (4.3-11.0)
[2018-08-03 07:33] LABS: BASOPHILS # (AUTO) 0.1 /CMM (0.0-0.2); BASOPHILS % (AUTO) 0.9 % (0.0-2.0); EOSINOPHILS % (AUTO) 4.9 % (0.0-6.0); LYMPHOCYTES # (AUTO) 1.2 /CMM (0.8-4.8); LYMPHOCYTES % (AUTO) 12.2 % (20.0-44.0); MONOCYTES # (AUTO) 0.7 /CMM (0.1-1.30); MONOCYTES % (AUTO) 7.2 % (2.0-12.0); NEUTROPHILS # (AUTO) 7.6 /CMM (1.8-8.9); NEUTROPHILS % (AUTO) 74.8 % (43.0-81.0)
--- NOTE | 2018-08-03 07:49 | NUR ---
ROCEPHIN ENTRY DUPLICATED. ONE ORDERED ADMINISTERED, SECOND ORDERED NOT ADMINISTERED.
[2018-08-03] MEDS ORDERED: CEFTRIAXONE 1 G in IV D5W 50 ML IV ONE (08:00)
--- NOTE | 2018-08-03 08:04 | NUR ---
PAGED EPIC FOR HOSPITALIST
--- NOTE | 2018-08-03 08:15 | NUR ---
REPORT GIVEN TO IONA MENDOZA FOR RENAE UPON ADMISSION.
[2018-08-03] MEDS ORDERED: CLOP75TA15 PO (08:46)
[2018-08-03] MEDS ORDERED: ALLO100T PO (08:46)
--- NOTE | 2018-08-03 09:06 | NUR ---
REPAGED EPIC FOR HOSPITALIST
[2018-08-03] MEDS ORDERED: ASPIRIN 81 MG TAB.CHEW ONE (09:21)
[2018-08-03] MEDS ORDERED: ASPIRIN 81 MG TAB.CHEW PO ONE (09:30)
--- NOTE | 2018-08-03 09:32 | NUR ---
PATIENT TRANSPORTED TO [facility] VIA ACLS PROTOCOL. RN, IONA TO PROVIDE RENAE.
[2018-08-03 09:40] VITALS: BP 178/78
--- NOTE | 2018-08-03 09:40 | NUR ---
PARADICHLOROBENZENE MACHINE OPERATOR OPENING NOTES RECEIVED PATIENT IN STABLE CONDITION. IN NO APPARENT DISTRESS. BEDSIDE RAILS ARE UPX2. BED IS LOCKED AND LOWERED. CALL LIGHT IS WITHIN REACH. IV LINE IS INTACT AND PATENT. WILL CONTINUE TO MONITOR PATIENT.
[2018-08-03] MEDS ORDERED: IV NS 0.9% 1,000 ML IV PRN (11:43)
[2018-08-03] MEDS ORDERED: hydrALAZINE HCL 25 MG TABLET PO PRN (12:00)
[2018-08-03] MEDS ORDERED: BUMETANIDE INJ 4 MG in IV NS 0.9% 24 ML IV ONE (12:00)
[2018-08-03] MEDS ORDERED: ONDANSETRON HCL/PF 4 MG/2 ML VIAL IVP PRN (12:00)
[2018-08-03] MEDS ORDERED: Z GUARD REMEDY 2 OZ OINT TP PRN (12:00)
[2018-08-03] MEDS ORDERED: ENOXAPARIN SODIUM 40 MG/0.4 ML DISP.SYRIN SQ SCH (12:00)
[2018-08-03] MEDS: ENOXAPARIN SODIUM 30 MG/0.3 ML DISP.SYRIN SQ SCH (12:21)
[2018-08-03 14:05] VITALS: BP 148/79
[2018-08-03 16:00] VITALS: BP 113/60
--- NOTE | 2018-08-03 18:25 | NUR ---
COMMUNITY AFFAIRS MANAGER CLOSING NOTES PATIENT IS IN STABLE CONDITION. VITAL SIGNS WNL. BEDSIDE RAILS ARE UPX2. BED IS LOCKED AND LOWERED. CALL LIGHT IS WITHIN REACH. IV LINE IS INTACT AND PATENT. ALL NEEDS WERE MET. NO SOB. WILL ENDORSE CARE TO SQL DATABASE DEVELOPER NURSE FOR RENAE.
[2018-08-03] MEDS ORDERED: BISACODYL SUPP (10 MG) 10 MG/SUPP.RECT SUPP.RECT RC PRN (18:30)
--- NOTE | 2018-08-03 19:15 | NUR ---
RN NOTES RECEIVED PT AWAKE, ALERT AND ORIENTED X3, HOB ELEVATED WITH O2 INHALATION AT 3LPM VIA NC AND TOLERATED WELL. PT DENIES SOB, PAIN, NAUSEA AND VOMITING AT THIS TIME. TELEMONITOR READS SINUS RHYTHM WITH HEART RATE AT 65. IV ACCESS AT LEFT WRIST PATENT AND INTACT. RIGHT ARM SKIN TEAR COVERED WITH DRESSING, CLEAN, DRY AND INTACT. BOTH LOWER LEG ELEVATED AND OFF LOADED. KEPT COMFORTABLE AND ATTENDED. CALL LIGHT WITHIN REACH. SAFETY MEASURES AND FALL PRECAUTION OBSERVED. WILL CONTINUE TO MONITOR PT.
[2018-08-03 20:00] VITALS: BP 95/45
[2018-08-03] MEDS: SENNOSIDES 8.6 MG TABLET PO SCH (21:26)
[2018-08-03] MEDS: METOPROLOL TARTRATE 50 MG TABLET PO SCH (21:26)
[2018-08-03 22:00] VITALS: BP 138/66
[2018-08-04] VITALS (7 sets, daily range): BP systolic 113–194; BP diastolic 58–81
[2018-08-04] MEDS: ACETAMINOPHEN 325 MG TABLET PO PRN ×2 (04:16→12:58)
--- NOTE | 2018-08-04 04:16 | NUR ---
RN NOTES PT COMPLAINS OF HEADACHE, TYLENOL 650 MG TAB GIVEN PO. WILL CONTINUE TO MONITOR PT.
--- NOTE | 2018-08-04 06:33 | NUR ---
RN NOTES PT SLEPT ON AND OFF OVERNIGHT, VITAL SIGNS STABLE. ON O2 INHALATION AT 2LPM VIA NC AND TOLERATED WELL. DENIES PAIN, NAUSEA AND VOMITING. TELEMONITOR READS SINUS RHYTHM WITH HEART RATE AT 60. KEPT CLEAN AND DRY, TURNED AND REPOSITIONED PER PROTOCOL. ALL NEEDS MET. WILL CONTINUE TO MONITOR PT.
[2018-08-04 06:34] LABS: BASOPHILS % (AUTO) 0.2 % (0.0-2.0); EOSINOPHILS % (AUTO) 3.2 % (0.0-6.0); HEMATOCRIT 29 % (33-45); HEMOGLOBIN 10.2 g/dL (11.5-14.8); LYMPHOCYTES # (AUTO) 0.7 /CMM (0.8-4.8); LYMPHOCYTES % (AUTO) 9.5 % (20.0-44.0); MEAN CORPUSCULAR HGB CONC 35 g/dl (31.0-36.0); MEAN CORPUSCULAR VOLUME 93 fL (82-100); MONOCYTES # (AUTO) 0.5 /CMM (0.1-1.30); MONOCYTES % (AUTO) 6.3 % (2.0-12.0); NEUTROPHILS % (AUTO) 80.8 % (43.0-81.0); PLATELET COUNT (AUTO) 178 /CMM (150-450); RDW COEFFICIENT OF VARIATION 12.8 (11.5-15.0); RED BLOOD CELL COUNT(AUTO) 3.16 MIL/uL (4.0-5.2); WHITE BLOOD COUNT (AUTO) 7.4 K/uL (4.3-11.0)
[2018-08-04 06:48] LABS: CHOLESTEROL 172 mg/dL (<200); HDL CHOLESTEROL 59 mg/dL (40-60); LDL 95 mg/dL (0-99); TRIGLYCERIDES 140 mg/dL (30-150)
[2018-08-04 06:51] LABS: ALANINE AMINOTRANSFERASE 23 U/L (12-78); ALBUMIN 2.8 g/dL (3.4-5.0); ALKALINE PHOSPHATASE 74 U/L (46-116); ASPARTATE AMINOTRANSFERASE 24 U/L (15-37); BILIRUBIN,TOTAL 0.4 mg/dL (0.2-1.0); CALCIUM, SERUM 8.6 mg/dL (8.5-10.1); CARBON DIOXIDE 31 mmol/L (21-32); CHLORIDE 91 mmol/L (98-107); CREATININE 1.8 mg/dL (0.6-1.3); GLUCOSE 100 mg/dL (74-106); MAGNESIUM 1.8 mg/dL (1.8-2.4); PHOSPHORUS 4.4 mg/dL (2.5-4.9); POTASSIUM 4.7 mmol/L (3.5-5.1); SODIUM SERUM 128 mmol/L (136-145); UREA NITROGEN, BLOOD 33 mg/dL (7-18)
--- NOTE | 2018-08-04 07:30 | NUR ---
LINE AND FRAME POLER NOTES PT IN BED, AWAKE, ALERT AND ORIENTED, VERBALLY RESPONSIVE, NO COMPLAINT OF PAIN OR ANY DISCOMFORT, RESPIRATIONS NORMAL AND NOT LABORED, PER PT HER BREATHING IS BETTER NOW BUT STILL FEELS WEAK, CALL LIGHT WITHIN REACH, NEEDS ATTENDED.
[2018-08-04] MEDS: SODIUM CHLORIDE 1000 MG TABLET.SOL PO SCH (08:19)
[2018-08-04] MEDS: CEFTRIAXONE 1 G in IV D5W 50 ML IV SCH (08:19)
[2018-08-04] MEDS: LEVOTHYROXINE SODIUM 88 MCG TABLET PO SCH (08:20)
[2018-08-04] MEDS: CLOPIDOGREL BISULFATE 75 MG TABLET PO SCH (08:20)
[2018-08-04] MEDS: METOPROLOL TARTRATE 50 MG TABLET PO SCH ×2 (08:20→21:28)
[2018-08-04] MEDS: ALLOPURINOL 100 MG TABLET PO SCH (08:20)
[2018-08-04] MEDS: ENOXAPARIN SODIUM 30 MG/0.3 ML DISP.SYRIN SQ SCH (08:31)
[2018-08-04] MEDS ORDERED: hydrALAZINE HCL 25 MG TABLET PO PRN (09:00)
[2018-08-04] MEDS ORDERED: FUROSEMIDE 20 MG/2 ML VIAL IV ONE (09:00)
--- NOTE | 2018-08-04 12:22 | NUR ---
RN MS NOTES DR. PORTILLO ORDERED XANAX 0.5 MG PO QHS PRN.
--- NOTE | 2018-08-04 12:22 | NUR ---
RN MS NOTES PT IN BED, AWAKE, ALERT AND ORIENTED, PT SEEN BY PHYSICAL THERAPIST, ABLE TO AMBULATE IN HER ROOM WITH A WALKER, TOLERATED WELL, NO SOB, ROOM AIR AFTER PT IS 98%, PT SEEN BY DR. PORTILLO, PLAN OF CARE DISCUSSED WITH PT AND DAUGHTER DAYANA AT BEDSIDE, VERBALIZED UNDERSTANDING, MD INFORMED OF CORTISOL LEVEL OF 21.6, NO NEW ORDER GIVEN, NEEDS ATTENDED.
[2018-08-04 14:25] LABS: ABG BASE EXCESS 5.2 mmol/L; ABG OXYGEN SATURATION 89.3 % (92.0-98.5); ABG PCO2 49.3 mmHg (35.0-45.0); ABG PH 7.413 (7.350-7.450); ABG PO2 54.1 mmHg (75.0-100.0); AaDO2 36.6 mmHg; COHb 0.3 % (0.5-1.5); MetHb 0.7 % (0.0-1.5); O2Hb 88.4 % (94.0-97.0); SITE, ABG Right Radial; VENT MODE, BG room air
--- NOTE | 2018-08-04 14:50 | NUR ---
RN MS NOTES PT IN BED, AWAKE, ALERT AND ORIENTED, NO SOB, NOT IN DISTRESS, ROOM AIR ABG DONE, REPORTED RESULT TO DR. DELATORRE - PO2 IS 54.1%, ORDERED 1 LITER OF 02 VIA N/C, NOTED AND CARRIED OUT.
[2018-08-04] MEDS ORDERED: NA PHOS,M-B/NA PHOS,DI-BA 1 EA ENEMA RC ONE (17:00)
--- NOTE | 2018-08-04 18:49 | NUR ---
RN MS NOTES PT IN BED, AWAKE, ALERT AND ORIENTED, DENIES PAIN, NO SOB, KEPT ON O2 AT 1L VIA N/C, HYDRALAZINE GIVEN FOR ELEVATED BP, WITH STABLE BP NOW, COMPLAINED OF CONSTIPATION, DULCOLAX SUPPOSITORY GIVEN ORDERED, PT STILL UNABLE TO HAVE BM, DR. PORTILLO INFORMED, ORDERED FLEET ENEMA X 1, GIVEN ORDERED, TOLERATED WELL, PT ABLE TO HAVE SMALL SOFT BM, WILL CONTINUE TO MONITOR, PM CARE RENDERED, ALL NEEDS ATTENDED.
--- NOTE | 2018-08-04 19:05 | NUR ---
RN INITIAL NOTES Pateint received in bed, alert, oriented x 3. Daughter at bedside. Breathing even and unlabored. Not in any distress. On O2 @ 1LPM via NC. Requesting for bedside commode, provided one. No complaints as of this time. Patient stable as endorsed by the morning shift RN. Will continue to monitor accordingly
[2018-08-04] MEDS: DOXAZOSIN MESYLATE (1 MG) 1 MG TABLET PO SCH (21:29)
[2018-08-04] MEDS: SENNOSIDES 8.6 MG TABLET PO SCH (21:29)
[2018-08-04] MEDS: HEPARIN SODIUM, PORCINE 5000 UNITS/1 ML VIAL SQ SCH (21:32)
[2018-08-04] MEDS: ALPRAZOLAM 0.25 MG TABLET PO PRN (22:32)
[2018-08-05] VITALS (7 sets, daily range): BP systolic 87–121; BP diastolic 46–64
[2018-08-05] MEDS: ACETAMINOPHEN 325 MG TABLET PO PRN ×2 (04:08→11:27)
--- NOTE | 2018-08-05 04:11 | NUR ---
RN NOTES Patient complained of pain on the rib area and requested for tylenol. Tylenol 650mg given as ordered
[2018-08-05 06:15] LABS: ALANINE AMINOTRANSFERASE 16 U/L (12-78); ALBUMIN 2.5 g/dL (3.4-5.0); ALKALINE PHOSPHATASE 61 U/L (46-116); ASPARTATE AMINOTRANSFERASE 12 U/L (15-37); BILIRUBIN,TOTAL 0.6 mg/dL (0.2-1.0); CALCIUM, SERUM 8.5 mg/dL (8.5-10.1); CARBON DIOXIDE 29 mmol/L (21-32); CHLORIDE 90 mmol/L (98-107); GLUCOSE 128 mg/dL (74-106); MAGNESIUM 1.6 mg/dL (1.8-2.4); PHOSPHORUS 4.8 mg/dL (2.5-4.9); POTASSIUM 4.6 mmol/L (3.5-5.1); SODIUM SERUM 125 mmol/L (136-145); TOTAL PROTEIN, SERUM 5.4 g/dL (6.4-8.2); UREA NITROGEN, BLOOD 33 mg/dL (7-18)
[2018-08-05 06:27] LABS: BASOPHILS % (AUTO) 0.1 % (0.0-2.0); HEMATOCRIT 27 % (33-45); HEMOGLOBIN 9.3 g/dL (11.5-14.8); LYMPHOCYTES # (AUTO) 0.7 /CMM (0.8-4.8); MEAN CORPUSCULAR HGB CONC 35 g/dl (31.0-36.0); MEAN CORPUSCULAR VOLUME 93 fL (82-100); MONOCYTES # (AUTO) 0.5 /CMM (0.1-1.30); MONOCYTES % (AUTO) 2.9 % (2.0-12.0); PLATELET COUNT (AUTO) 183 /CMM (150-450); RED BLOOD CELL COUNT(AUTO) 2.87 MIL/uL (4.0-5.2); WHITE BLOOD COUNT (AUTO) 17.2 K/uL (4.3-11.0)
--- NOTE | 2018-08-05 06:52 | NUR ---
RN CLOSING NOTES Patient in bed, alert, oriented x 3. Breathing even and unlabored. Not in any distress. No complaints as of this time. Patient moved her bowels 4x. All needs attended to. All due medications given as ordered. Call nascimento within reach. Bed in low locked position. Will endorse RENAE to oncoming RN
--- NOTE | 2018-08-05 07:54 | NUR ---
RN OPENING MED SURG NOTES RECEIVE PATIENT IN BED, AWAKE, A&OX3, VERBALLY RESPONSIVE AND ABLE TO MAKE NEEDS KNOWN. BREATHING EVEN AND UNLABORED ON O2 1L. SALINE LOCK ON L WRIST G#18, INTACT AND PATENT. REPORTS FEELING TIRED, BP AT 87/48, ELEVATED LEGS AND WILL CONTINUE TO CLOSELY MONITOR. BED IN LOWEST LOCKED POSITION, CALL LIGHT WITHIN REACH AT ALL TIMES.
[2018-08-05] MEDS: LEVOTHYROXINE SODIUM 88 MCG TABLET PO SCH (08:54)
[2018-08-05] MEDS: ALLOPURINOL 100 MG TABLET PO SCH (08:54)
[2018-08-05] MEDS: SODIUM CHLORIDE 1000 MG TABLET.SOL PO SCH (08:54)
[2018-08-05] MEDS: CLOPIDOGREL BISULFATE 75 MG TABLET PO SCH (08:54)
[2018-08-05] MEDS: HEPARIN SODIUM, PORCINE 5000 UNITS/1 ML VIAL SQ SCH ×2 (08:56→21:32)
[2018-08-05] MEDS: METOPROLOL TARTRATE 50 MG TABLET PO SCH (08:58)
[2018-08-05] MEDS: CEFTRIAXONE 1 G in IV D5W 50 ML IV SCH (08:58)
--- NOTE | 2018-08-05 09:28 | NUR ---
RN MS NOTES PT SEEN BY DR. HAMLET MD INFORMED OF PT'S LOW BP, ORDERS GIVEN.
[2018-08-05] MEDS: hydrALAZINE HCL 50 MG TABLET PO SCH ×3 (09:30→17:00)
[2018-08-05] MEDS: Magnesium 1GM/D5W 100ML PREMIX 100 ML IV SCH ×2 (09:46→11:02)
--- NOTE | 2018-08-05 16:04 | NUR ---
RN MS NOTES PT COMPLAINED OF NOT BEING ABLE TO PASS URINE, ASSISTED TO BEDSIDE COMMODE NEEDED BUT STILL UNABLE TO DO SO, PT COMPLAINING OF BLADDER DISCOMFORT, BLADDER SCAN DONE, SHOWED 400ML OF URINE, DR. PORTILLO INFORMED, ORDERED TO INSERT CHAVEZ CATHETER, PT AND DAUGHTER DAYANA AGREED.
[2018-08-05 17:21] LABS: APPEARANCE,URINE SL CLOUDY (CLEAR); BILIRUBIN,URINE NEGATIVE (NEGATIVE); BLOOD, URINE NEGATIVE Ery/uL (NEGATIVE); COLOR,URINE YELLOW (YELLOW); KETONES,URINE NEGATIVE (NEGATIVE); LEUKOCYTE ESTERASE ,URINE 1+ (NEGATIVE); NITRITE, URINE NEGATIVE (NEGATIVE); PROTEIN,URINE NEGATIVE (NEGATIVE); UGLUCOSE NEGATIVE (NEGATIVE); UROBILINOGEN,URINE 0.2 EU/dL (0.2)
[2018-08-05 17:35] LABS: RBC,URINE 0-2 /HPF (0-2)
[2018-08-05 17:36] LABS: BACTERIA,URINE 2+ /HPF (None Seen); MUCUS,URINE Few /LPF (None Seen)
--- NOTE | 2018-08-05 18:07 | NUR ---
BODY FITTER CLOSING NOTES PATIENT IN BED, AWAKE, REMAINS STABLE, LAST VITAL SIGNS WNL. BREATHING EVEN AND UNLABORED ON O2 1L. CHAVEZ CATHETER IN PLACE PER MD ORDER, VOIDING TO A STRAW YELLOW. REMAINS ON FLUID RESTRICTION 800ML. SAMPLE COLLECTED FOR URINE CULTURE. BED IN LOWEST LOCKED POSITION, CALL LIGHT WITHIN REACH AT ALL TIMES, WILL ENDORSE TO NIGHT NURSE FOR RENAE
--- NOTE | 2018-08-05 19:05 | NUR ---
RN INITIAL NOTES Patient received in bed, alert, oriented x 3. Verbally responsive, able to make needs known. Breathing even and unlabored. Not in any distress. Kearns cath in place, draining straw yellow urine. Call light within reach. Bed in low locked position. Patient stable as endorsed by the morning RN. Will continue to monitor accordingly.
[2018-08-05] MEDS: SENNOSIDES 8.6 MG TABLET PO SCH (21:30)
[2018-08-05] MEDS: DOXAZOSIN MESYLATE (1 MG) 1 MG TABLET PO SCH (21:36)
[2018-08-05] MEDS: ALPRAZOLAM 0.25 MG TABLET PO PRN (22:12)
[2018-08-06 00:17] VITALS: BP 98/50
[2018-08-06] MEDS: ACETAMINOPHEN 325 MG TABLET PO PRN ×2 (03:03→21:37)
[2018-08-06 04:30] VITALS: BP 108/51
[2018-08-06 07:06] LABS: CALCIUM, SERUM 8.4 mg/dL (8.5-10.1); CARBON DIOXIDE 29 mmol/L (21-32); CHLORIDE 90 mmol/L (98-107); CREATININE 1.8 mg/dL (0.6-1.3); GLUCOSE 96 mg/dL (74-106); MAGNESIUM 2.1 mg/dL (1.8-2.4); POTASSIUM 3.9 mmol/L (3.5-5.1); SODIUM SERUM 126 mmol/L (136-145); UREA NITROGEN, BLOOD 33 mg/dL (7-18)
--- NOTE | 2018-08-06 07:20 | NUR ---
RN CLOSING NOTES Patient in bed, alert, oriented x 4. Not in any distress. No complaints as of this time. Kearns catheter draining 600mL of urine. All needs attended to. All due medications given as ordered. Endorsed RENAE to oncoming RN.
[2018-08-06 08:00] VITALS: BP 149/72
--- NOTE | 2018-08-06 08:00 | NUR ---
RN NOTES PATIENT IN BED RESTING NO SOB OR ACUTE DISTRESS NOTED. PATIENT REPORTS FEELING WEAK AND STATES SHE FEELS LIKE HER HEART IS POUNDING. PULSE PALPITATED NOTED TO BE 129. BP OF 127/60 O2 SATURATION 99%. DR. KEMI PORTILLO MADE AWARE ORDERS FOR EKG AND XANAX 0.25MG ONCE. ORDERS NOTED AND CARRIED OUT. WILL CONTINUE TO MONITOR CLOSELY PATIENT ALSO PLACED ON TELE MONITORING FOR OBSERVATION.
[2018-08-06] MEDS: LEVOTHYROXINE SODIUM 88 MCG TABLET PO SCH (08:09)
[2018-08-06] MEDS: CEFTRIAXONE 1 G in IV D5W 50 ML IV SCH (08:13)
[2018-08-06] MEDS: SODIUM CHLORIDE 1000 MG TABLET.SOL PO SCH (08:13)
[2018-08-06] MEDS: ALLOPURINOL 100 MG TABLET PO SCH (08:14)
[2018-08-06] MEDS: HEPARIN SODIUM, PORCINE 5000 UNITS/1 ML VIAL SQ SCH ×2 (08:15→21:16)
[2018-08-06] MEDS: CLOPIDOGREL BISULFATE 75 MG TABLET PO SCH (08:15)
[2018-08-06] MEDS: hydrALAZINE HCL 50 MG TABLET PO SCH ×3 (08:16→16:28)
[2018-08-06] MEDS ORDERED: ALPRAZOLAM 0.25 MG TABLET PO ONE (09:00)
--- NOTE | 2018-08-06 09:00 | NUR ---
RN NOTES PATIENT SEE AND EVALUATED BY DR. MCNULTY EKG RESULTS EXAMINED BY DR. MCNULTY ORDERS TO ADMINISTER 100MG OF METOPROLOL NOTED AND CARRIED OUT. PATIENT STATES SHE FEELS BETTER . HEART RATE NOTED AT 112 SINUS TACHY. WILL CONTINUE TO MONITOR CLOSELY.
[2018-08-06] MEDS: METOPROLOL TARTRATE 50 MG TABLET PO SCH (09:19)
[2018-08-06 09:20] LABS: BASOPHILS % (AUTO) 0.2 % (0.0-2.0); EOSINOPHILS % (AUTO) 0.6 % (0.0-6.0); HEMATOCRIT 25 % (33-45); HEMOGLOBIN 8.2 g/dL (11.5-14.8); LYMPHOCYTES % (AUTO) 9.3 % (20.0-44.0); MEAN CORPUSCULAR HGB CONC 33 g/dl (31.0-36.0); MEAN CORPUSCULAR VOLUME 95 fL (82-100); MONOCYTES # (AUTO) 0.5 /CMM (0.1-1.30); MONOCYTES % (AUTO) 5.1 % (2.0-12.0); NEUTROPHILS # (AUTO) 8.9 /CMM (1.8-8.9); NEUTROPHILS % (AUTO) 84.8 % (43.0-81.0); PLATELET COUNT (AUTO) 158 /CMM (150-450); RDW COEFFICIENT OF VARIATION 13.5 (11.5-15.0); WHITE BLOOD COUNT (AUTO) 10.5 K/uL (4.3-11.0)
[2018-08-06] MEDS: ALBUTEROL HALF STRENGTH 1.25 MG/3 ML VIAL.NEB NEB SCH ×3 (10:30→19:42)
[2018-08-06] MEDS: IPRATROPIUM NEB FS 0.5 MG/2.5 ML AMPUL.NEB NEB SCH ×3 (10:30→19:41)
--- NOTE | 2018-08-06 14:20 | NUR ---
RN NOTES PATIENT SEEN AMBULATING WITH PT WITH SOME ASSISTANCE.
[2018-08-06 16:01] LABS: IRON, SERUM 23 ug/dl (50-175); TOTAL IRON BINDING CAPACITY 201 ug/dl (250-450)
[2018-08-06 16:15] LABS: FERRITIN 135 ng/mL (8-388)
--- NOTE | 2018-08-06 17:00 | NUR ---
RN NOTES CALL RECEIVED FROM LAB WITH ELEVATED TROP LEVEL OF 0.456 RESULTS REPORTED TO KEMI PORTILLO NO NEW ORDERS GIVEN , CONTINUE TO MONITOR CLOSELY.
[2018-08-06 18:00] VITALS: BP 150/90
--- NOTE | 2018-08-06 18:27 | NUR ---
RN NOTES PATIENT IN BED RESTING NO SOB OR ACUTE DISTRESS NOTED. ALL DUE MEDICATIONS ADMINISTERED ALL NEEDS MET. WILL ENDORSE TO PM SHIFT RENAE.
[2018-08-06 18:40] LABS: BASOPHILS % (AUTO) 0.1 % (0.0-2.0); EOSINOPHILS % (AUTO) 0.9 % (0.0-6.0); HEMATOCRIT 29 % (33-45); HEMOGLOBIN 9.4 g/dL (11.5-14.8); LYMPHOCYTES # (AUTO) 0.8 /CMM (0.8-4.8); LYMPHOCYTES % (AUTO) 7.8 % (20.0-44.0); MEAN CORPUSCULAR HGB CONC 33 g/dl (31.0-36.0); MEAN CORPUSCULAR VOLUME 95 fL (82-100); MONOCYTES # (AUTO) 0.4 /CMM (0.1-1.30); MONOCYTES % (AUTO) 3.5 % (2.0-12.0); NEUTROPHILS # (AUTO) 9.5 /CMM (1.8-8.9); NEUTROPHILS % (AUTO) 87.7 % (43.0-81.0); PLATELET COUNT (AUTO) 196 /CMM (150-450); RDW COEFFICIENT OF VARIATION 13.1 (11.5-15.0); RED BLOOD CELL COUNT(AUTO) 3.01 MIL/uL (4.0-5.2); WHITE BLOOD COUNT (AUTO) 10.8 K/uL (4.3-11.0)
--- NOTE | 2018-08-06 19:29 | NUR ---
MS RN OPENING NOTES PT WAS RECEIEVD IN BED AT LOWEST AND LOCKED POSITION WITH SIDE RAILS UP X2, A/O X3, NO S/S OF PAIN OR DISTRESS NOTED, BREATHING IS EVEN AND UNLABORED ON 2L VIA NC ON AND OFF, PT HAS A RIGHT ARM SKIN TEAR, IV IS PATENT AND INTACT, SAFETY PRECAUTIONS IN PLACE, CALL LIGHT WITHIN REACH, WILL CONTINUE TO MONITOR
[2018-08-06 20:00] VITALS: BP 136/68
[2018-08-06] MEDS: DOXAZOSIN MESYLATE (1 MG) 1 MG TABLET PO SCH (21:15)
[2018-08-06] MEDS: SENNOSIDES 8.6 MG TABLET PO SCH (21:16)
[2018-08-07] MEDS: ALBUTEROL HALF STRENGTH 1.25 MG/3 ML VIAL.NEB NEB SCH ×3 (02:00→13:45)
[2018-08-07] MEDS: IPRATROPIUM NEB FS 0.5 MG/2.5 ML AMPUL.NEB NEB SCH ×3 (02:00→13:45)
[2018-08-07] MEDS: ALPRAZOLAM 0.25 MG TABLET PO PRN (02:45)
[2018-08-07 06:12] LABS: BASOPHILS % (AUTO) 0.5 % (0.0-2.0); EOSINOPHILS % (AUTO) 1.5 % (0.0-6.0); HEMATOCRIT 23 % (33-45); HEMOGLOBIN 7.9 g/dL (11.5-14.8); LYMPHOCYTES # (AUTO) 0.8 /CMM (0.8-4.8); LYMPHOCYTES % (AUTO) 10.4 % (20.0-44.0); MEAN CORPUSCULAR HGB CONC 34 g/dl (31.0-36.0); MEAN CORPUSCULAR VOLUME 94 fL (82-100); MONOCYTES # (AUTO) 0.5 /CMM (0.1-1.30); MONOCYTES % (AUTO) 6.2 % (2.0-12.0); NEUTROPHILS # (AUTO) 6.2 /CMM (1.8-8.9); NEUTROPHILS % (AUTO) 81.4 % (43.0-81.0); PLATELET COUNT (AUTO) 158 /CMM (150-450); WHITE BLOOD COUNT (AUTO) 7.6 K/uL (4.3-11.0)
--- NOTE | 2018-08-07 06:31 | NUR ---
MS RN CLOSING NOTES PT IN BED AT LOWEST AND LOCKED POSITION WITH SIDE RAILS UP X2, A/O X3, NO S/S OF PAIN OR DISTRESS NOTED, BREATHING IS EVEN AND UNLABORED ON 2L VIA NC, PT HAS A RIGHT ARM SKIN TEAR, IV IS PATENT AND INTACT, CHAVEZ IS IN PLACE WITH 500 ML REMOVED, SAFETY PRECAUTIONS IN PLACE, CALL LIGHT WITHIN REACH, WILL ENDORSE TO DAY SHIFT FOR RENAE
[2018-08-07 06:41] LABS: CALCIUM, SERUM 8.3 mg/dL (8.5-10.1); CARBON DIOXIDE 31 mmol/L (21-32); CHLORIDE 93 mmol/L (98-107); CREATININE 1.7 mg/dL (0.6-1.3); GLUCOSE 99 mg/dL (74-106); MAGNESIUM 2.2 mg/dL (1.8-2.4); PHOSPHORUS 3.9 mg/dL (2.5-4.9); POTASSIUM 3.9 mmol/L (3.5-5.1); SODIUM SERUM 128 mmol/L (136-145); UREA NITROGEN, BLOOD 31 mg/dL (7-18)
[2018-08-07 06:43] LABS: TROPONIN I 0.266 ng/mL (0.00-0.056)
[2018-08-07 08:00] VITALS: BP 136/72
[2018-08-07] MEDS: CLOPIDOGREL BISULFATE 75 MG TABLET PO SCH (08:03)
[2018-08-07] MEDS: SODIUM CHLORIDE 1000 MG TABLET.SOL PO SCH (08:03)
[2018-08-07] MEDS: LEVOTHYROXINE SODIUM 88 MCG TABLET PO SCH (08:03)
[2018-08-07] MEDS: ALLOPURINOL 100 MG TABLET PO SCH (08:03)
[2018-08-07] MEDS: HEPARIN SODIUM, PORCINE 5000 UNITS/1 ML VIAL SQ SCH (08:04)
[2018-08-07] MEDS: CEFTRIAXONE 1 G in IV D5W 50 ML IV SCH (08:05)
[2018-08-07] MEDS: METOPROLOL TARTRATE 50 MG TABLET PO SCH (08:14)
[2018-08-07] MEDS: hydrALAZINE HCL 50 MG TABLET PO SCH ×3 (08:14→16:26)
--- NOTE | 2018-08-07 11:00 | NUR ---
RN NOTES PATIENT SEEN AND EVALUATED BY DR. AMADOU Velez. ORDERS TO DISCHARGE TO [facility] NOTED AND CARRIED OUT.
[2018-08-07 13:34] LABS: OCCULT BLOOD STOOL POSITIVE (NEGATIVE)
--- NOTE | 2018-08-07 14:00 | NUR ---
RN NOTES REPORT GIVEN TO ALISA MENDOZA AT [facility], PATIENT AND PATIENTS SON INFORMED OF DISCHARGE BOTH AGREE. DISCHARGE INSTRUCTIONS PROVIDED VERBALIZED UNDERSTANDING. WILL CONTINUE MONITOR.
[2018-08-07] MEDS ORDERED: DOXA1TAB17 PO (14:18)
[2018-08-07] MEDS ORDERED: HYDR-4077 PO (14:18)
[2018-08-07] MEDS ORDERED: HEPA50008 SQ (14:18)
[2018-08-07] MEDS ORDERED: ACET325T53 PO (14:19)
[2018-08-07] MEDS ORDERED: IPRA0.2S9 NEB (14:19)
[2018-08-07] MEDS ORDERED: SENN-167 PO (14:19)
[2018-08-07] MEDS ORDERED: ALBU1.25 NEB (14:19)
[2018-08-07 16:00] VITALS: BP 153/75
[2018-08-07 16:26] VITALS: BP 153/75
--- NOTE | 2018-08-07 17:15 | NUR ---
RN NOTES PATIENT [facility] AT BEDS[facility]. DISCHARGE EDUCATION PROVIDED, VERBALIZED UNDERSTANDING. DISCHARGE PROTOCOL FOLLOWED. ALL BELONGINGS ACCOUNTED FOR, BELONGING LIST SIGNED.REPORT GIVEN TO ALISA. PERIPHERAL IV REMOVED WITH MINIMAL BLEEDING. ID BAND ALSO REMOVED. MD AWARE OF ALL ABNORMAL LABS. PATIENT TRANSFERRED VIA AMBULANCE WITH EMT.
== END 2018-08-07 17:15 | DRG 280 ==
LOC: ER 05:55 → TELE 08:20 → MED 08-04 08:48
PROVIDERS: ADMIT Registered Nurse; ATTEND Registered Nurse
DX: I13.0 Hypertensive heart and chronic kidney disease with heart failure and stage 1 through stage 4 chronic kidney disease, or unspecified chronic kidney disease (principal); I21.A1 Myocardial infarction type 2; I50.33 Acute on chronic diastolic (congestive) heart failure; J15.9 Unspecified bacterial pneumonia; E87.1 Hypo-osmolality and hyponatremia; D68.59 Other primary thrombophilia; N39.0 Urinary tract infection, site not specified; J81.1 Chronic pulmonary edema; N18.4 Chronic kidney disease, stage 4 (severe); N17.9 Acute kidney failure, unspecified; J98.11 Atelectasis; D62 Acute posthemorrhagic anemia; I42.2 Other hypertrophic cardiomyopathy; M19.90 Unspecified osteoarthritis, unspecified site; E88.09 Other disorders of plasma-protein metabolism, not elsewhere classified; E03.9 Hypothyroidism, unspecified; I27.20 Pulmonary hypertension, unspecified; I25.10 Atherosclerotic heart disease of native coronary artery without angina pectoris; J43.9 Emphysema, unspecified; Z87.891 Personal history of nicotine dependence; Z85.41 Personal history of malignant neoplasm of cervix uteri; F41.9 Anxiety disorder, unspecified; D63.8 Anemia in other chronic diseases classified elsewhere; R09.02 Hypoxemia
CPT/HCPCS: 36415; 36600; 71045-TC; 71250-TC; 80048-TC; 80053-TC; 80061-TC; 80076-TC; 81000-TC; 82272-TC; 82533; 82728-TC; 82803-TC; 82962-TC; 83540-TC; 83605-TC; 83735-TC; 83880; 84100-TC; 84439-TC; 84481; 84484-TC; 85025-TC; 85730-TC; 87040-TC; 87081-TC; 87086-TC; 93970-TC; 94799-TC; 97110-TC; 97116-TC; 97530-TC; A4606; A6402; A6403; J0456; J0696; J1644; J1650; J1940; J3475; J3490; J7030; J7040; J7060; Z7610

== ENCOUNTER 2020-03-12 14:23 | Inpatient (IN) | payer MEDICARE, BC ==
[~2020-03-12] VITALS: Ht 170.2 cm; Wt 81.4 kg
[~2020-03-12 14:23] MED LIST changes: +ACET325T53 PO; +ALBU1.25 NEB; +ALLO100T PO; -ASPI-869 PO; +CLOP75TA15 PO; +DOXA1TAB17 PO; +HEPA50008 SQ; +HYDR-4077 PO; +IPRA0.2S9 NEB; -METO50TA16 PO; +SENN-261 PO
--- NOTE | 2020-03-12 14:35 | NUR ---
PT BIBA RA 99 From home "was checked by [facility] earlier today sats 88%. PT IS AAOX4, NOT IN RESPIRATORY DISTRESS, HOOKED TO WIG COMBER, KEPT RESTED AND COMFORTABLE, WILL CONTINUE TO MONITOR.
--- NOTE | 2020-03-12 15:06 | NUR ---
SEEN AND EXAMINED BY .
--- NOTE | 2020-03-12 15:20 | NUR ---
IV LINE ESTABLISHED, BLOOD DRAWN AND SENT TO LAB.
--- NOTE | 2020-03-12 15:24 | NUR ---
EMERGENCY SERVICES PROFESSIONAL AT BEDSIDE FOR XRAY.
[2020-03-12 15:27] LABS: BASOPHILS % (AUTO) 0.6 % (0.0-2.0); EOSINOPHILS % (AUTO) 3.7 % (0.0-6.0); HEMATOCRIT 41 % (33-45); HEMOGLOBIN 13.8 g/dL (11.5-14.8); LYMPHOCYTES # (AUTO) 0.8 /CMM (0.8-4.8); LYMPHOCYTES % (AUTO) 9.6 % (20.0-44.0); MEAN CORPUSCULAR HGB CONC 34 g/dl (31.0-36.0); MEAN CORPUSCULAR VOLUME 91 fL (82-100); MONOCYTES # (AUTO) 0.7 /CMM (0.1-1.30); MONOCYTES % (AUTO) 8.6 % (2.0-12.0); NEUTROPHILS # (AUTO) 6.1 /CMM (1.8-8.9); NEUTROPHILS % (AUTO) 77.5 % (43.0-81.0); PLATELET COUNT (AUTO) 200 /CMM (150-450); RED BLOOD CELL COUNT(AUTO) 4.48 MIL/uL (4.0-5.2); WHITE BLOOD COUNT (AUTO) 7.9 K/uL (4.3-11.0)
[2020-03-12 15:37] LABS: CALCIUM, SERUM 9.1 mg/dL (8.5-10.1); CARBON DIOXIDE 34 mmol/L (21-32); CHLORIDE 100 mmol/L (98-107); CREATININE 1.9 mg/dL (0.6-1.3); GLUCOSE 105 mg/dL (74-106); POTASSIUM 3.7 mmol/L (3.5-5.1); SODIUM SERUM 139 mmol/L (136-145); UREA NITROGEN, BLOOD 24 mg/dL (7-18)
[2020-03-12 15:53] LABS: ALANINE AMINOTRANSFERASE 32 U/L (12-78); ALBUMIN 3.4 g/dL (3.4-5.0); ALKALINE PHOSPHATASE 267 U/L (46-116); ASPARTATE AMINOTRANSFERASE 25 U/L (15-37); B-TYPE NATRIURETIC PEPTIDE 1834 PG/ML (0-125); BILIRUBIN,DIRECT 0.1 mg/dL (0.0-0.2); BILIRUBIN,TOTAL 0.6 mg/dL (0.2-1.0)
[2020-03-12] MEDS ORDERED: ASPI-1169 PO (15:57)
[2020-03-12] MEDS ORDERED: FURO-145 PO (15:57)
[2020-03-12] MEDS ORDERED: LEVO112T7 PO (15:57)
[2020-03-12] MEDS ORDERED: CYAN-51 PO (15:57)
[2020-03-12] MEDS ORDERED: PANT40TA4 PO (15:57)
[2020-03-12] MEDS ORDERED: AMLO5TAB9 PO (15:57)
[2020-03-12] MEDS ORDERED: DOCU-141 PO (15:57)
[2020-03-12] MEDS ORDERED: CHOL100040 PO (15:57)
[2020-03-12] MEDS ORDERED: BACL10TA PO (15:57)
[2020-03-12] MEDS ORDERED: MELO-107 PO (15:57)
[2020-03-12] MEDS ORDERED: ACET-2605 PO (15:57)
[2020-03-12] MEDS ORDERED: ACET-868 PO (15:57)
[2020-03-12] MEDS ORDERED: ACET-1951 PO (15:58)
--- NOTE | 2020-03-12 17:00 | NUR ---
RN NOTES RECEIVED PATIENT VIA DAIN, ACCOMPANIED BY 2 ER STAFF. PATIENT A/O X3. ON OXYGEN 2LPM VIA NC. NO SIGNS OF DISTRESS NOTED AT THIS TIME. IV ACCESS ON RAC#18, SL. SAFETY MEASURES IN PLACE, BED IN LOWEST LOCKED POSITION WITH SIDE RAILS UP X2. CALL LIGHT PLACED WITHIN EASY REACH. WILL ENDORSE TO SUPERVISOR TELLERS NURSE FOR ADMISSION. Addendum: 03/12/20 at 1910 by FRANSISCO FERRERA RN TIME 19:00
--- NOTE | 2020-03-12 18:24 | NUR ---
ROOM GIVEN 304-2T
--- NOTE | 2020-03-12 18:28 | NUR ---
REPORT GIVEN TO REJI MOODY FOR RENAE.
[2020-03-12] MEDS ORDERED: Z GUARD REMEDY 2 OZ OINT TP PRN (19:00)
[2020-03-12] MEDS ORDERED: ONDANSETRON HCL/PF 4 MG/2 ML VIAL IVP PRN (19:00)
[2020-03-12] MEDS ORDERED: MAGNESIUM HYDROXIDE 30 ML UDC PO PRN (19:00)
[2020-03-12] MEDS ORDERED: MAG HYDROX/AL HYDROX/SIMETH 30 ML UDC PO PRN (19:00)
[2020-03-12 20:00] VITALS: BP 157/80
[2020-03-12] MEDS: ACETAMINOPHEN 325 MG TABLET PO SCH (20:21)
[2020-03-12] MEDS: FUROSEMIDE 40 MG/4 ML VIAL IV SCH (20:21)
[2020-03-12] MEDS: AMLODIPINE BESYLATE 5 MG TABLET PO SCH (20:22)
[2020-03-12] MEDS: ENOXAPARIN SODIUM 30 MG/0.3 ML DISP.SYRIN SQ SCH (20:23)
[2020-03-13] VITALS: BP 138/69
[2020-03-13 04:16] VITALS: BP 120/66
[2020-03-13 06:14] LABS: BASOPHILS % (AUTO) 0.6 % (0.0-2.0); EOSINOPHILS % (AUTO) 5.7 % (0.0-6.0); HEMATOCRIT 40 % (33-45); HEMOGLOBIN 13.6 g/dL (11.5-14.8); LYMPHOCYTES % (AUTO) 14.5 % (20.0-44.0); MEAN CORPUSCULAR HGB CONC 34 g/dl (31.0-36.0); MEAN CORPUSCULAR VOLUME 91 fL (82-100); MONOCYTES # (AUTO) 0.6 /CMM (0.1-1.30); MONOCYTES % (AUTO) 9.5 % (2.0-12.0); NEUTROPHILS # (AUTO) 4.7 /CMM (1.8-8.9); NEUTROPHILS % (AUTO) 69.7 % (43.0-81.0); PLATELET COUNT (AUTO) 176 /CMM (150-450); RED BLOOD CELL COUNT(AUTO) 4.45 MIL/uL (4.0-5.2); WHITE BLOOD COUNT (AUTO) 6.7 K/uL (4.3-11.0)
[2020-03-13 06:37] LABS: CHOLESTEROL 275 mg/dL (<200); HDL CHOLESTEROL 52 mg/dL (40-60); LDL 176 mg/dL (0-99); TRIGLYCERIDES 286 mg/dL (30-150)
[2020-03-13 06:48] LABS: CALCIUM, SERUM 9.1 mg/dL (8.5-10.1); CARBON DIOXIDE 33 mmol/L (21-32); CHLORIDE 101 mmol/L (98-107); CREATININE 1.7 mg/dL (0.6-1.3); GLUCOSE 105 mg/dL (74-106); PHOSPHORUS 5.4 mg/dL (2.5-4.9); POTASSIUM 3.5 mmol/L (3.5-5.1); SODIUM SERUM 140 mmol/L (136-145); UREA NITROGEN, BLOOD 25 mg/dL (7-18)
--- NOTE | 2020-03-13 06:52 | NUR ---
EL TEACHER NOTES AWAKE & RESPONSIVE. NOT IN ANY DISTRESS. NO SOB NOTED. DENIES ANY PAIN OR DISCOMFORT AT THIS TIME. ON TELE A PACING @ 66 WITH IV-HL PATENT & INTACT. MONITORED ACCORDINGLY. CALL LIGHT WITHIN REACH. BED IN LOWEST POSITION. SR UP X 3 FOR SAFETY. WILL ENDORSE TO NEXT SHIFT.
--- NOTE | 2020-03-13 07:54 | NUR ---
SOLAR INSTALLER TECHNICIAN OPENING NOTES Received Patient awake and resting in bed. A/O x 4. Patient in stable condition with no acute distress. Breathing even and unlabored on 2LPM via NC with no respiratory distress. Denies pain. No signs and symptoms of pain. Telemonitor in place and patent reading SR with HR-62. 18g PIV on RAC clean, intact, patent and flushing well. Safety precautions in place. Bed locked and set to lowest position with side rails x 2 up. All needs rendered at this time. Call light within reach. Will continue to monitor.
[2020-03-13 08:00] VITALS: BP 135/68
[2020-03-13] MEDS: LEVOTHYROXINE SODIUM 112 MCG TABLET PO SCH (08:24)
[2020-03-13] MEDS: PANTOPRAZOLE 40 MG TABLET.DR PO SCH (08:24)
[2020-03-13] MEDS: FUROSEMIDE 40 MG/4 ML VIAL IV SCH (08:28)
[2020-03-13] MEDS: ASPIRIN 81 MG TAB.CHEW PO SCH (08:29)
[2020-03-13] MEDS: DOCUSATE SODIUM 100 MG CAPSULE PO SCH ×2 (08:29→21:44)
[2020-03-13] MEDS: CLOPIDOGREL BISULFATE 75 MG TABLET PO SCH (08:29)
[2020-03-13] MEDS: BACLOFEN (10 MG) 10 MG TABLET PO SCH ×2 (08:29→21:44)
[2020-03-13] MEDS: CYANOCOBALAMIN 500 MCG TABLET PO SCH (08:29)
[2020-03-13] MEDS: CHOLECALCIFEROL 1,000 UNIT TABLET (VIT D3) PO SCH (08:30)
[2020-03-13] MEDS: ALLOPURINOL 100 MG TABLET PO SCH (08:30)
[2020-03-13] MEDS: AMLODIPINE BESYLATE 5 MG TABLET PO SCH ×2 (08:31→20:59)
[2020-03-13] MEDS: METOPROLOL TARTRATE 50 MG TABLET PO SCH ×2 (08:31→20:58)
[2020-03-13] MEDS: HYDROCODONE/APAP 5/325MG 1 EACH TABLET PO PRN ×2 (08:40→15:35)
--- NOTE | 2020-03-13 08:45 | NUR ---
MS RN NOTES SPO2 87% on RA. Placed 2LPM via NC, SPO2 94%. Patient in stable condition with no acute distress. Will continue to monitor.
[2020-03-13] MEDS ORDERED: DOCUSATE SODIUM 100 MG CAPSULE PO SCH (09:00)
[2020-03-13] MEDS ORDERED: BACLOFEN (10 MG) 10 MG TABLET PO SCH (09:00)
--- NOTE | 2020-03-13 10:04 | NUR ---
WOUND CARE CONSULT: PT PRESENTS WITH RASH TO BREASTFOLDS, BACK BRUISING, BLANCHABLE REDNESS TO HEELS AND RT ELBOW HEALED AREA, PRESENT ON ADMISSION. RECOMMENDATIONS MADE FOR SKIN PROTECTION. DISCUSSED WITH NURSING STAFF. PT ON PHILOMENA ISOFLEX LOW AIRLOSS BED. CURRENT RASHAWN SCORE IS 16. PT NOTED TO BE INCONTINENT. MD IN AGREEMENT WITH PLAN OF CARE.
--- NOTE | 2020-03-13 11:31 | NUR ---
MS RN NOTES Patient requesting Xanax for anxiety. Notified Neha LOPEZ. Per MD, may order Xanax 0.5mg PO q8h PRN. Order noted and carried out. Patient in stable condition. Will continue to monitor.
[2020-03-13] MEDS: ALPRAZOLAM 0.25 MG TABLET PO PRN ×2 (15:05→23:53)
[2020-03-13 16:00] VITALS: BP 114/64
[2020-03-13] MEDS: CLOTRIMAZOLE 1% 15 GM TUBE TP SCH (16:42)
--- NOTE | 2020-03-13 18:17 | NUR ---
MS RN CLOSING NOTES Patient awake and resting in bed. A/O x 4. Patient in stable condition with no acute distress. Breathing even and unlabored on 2LPM via NC with no respiratory distress. Patient stated mild but tolerable pain. Will endorse to oncoming shift. 18g PIV on RAC clean, intact, patent and flushing well. Safety precautions in place. Bed locked and set to lowest position with side rails x 2 up. All needs rendered at this time. Call light within reach. Will endorse plan of care to oncoming shift.
[2020-03-13 20:00] VITALS: BP_SYST 112; BP_SYST 122; BP_DIAS 60
--- NOTE | 2020-03-13 20:00 | NUR ---
MS/RN OPENING NOTES' RECEIVED PATIENT IN BED, AWAKE, AND REPORTED THAT SHE WAS ABLE TO SLEEP AND REST TODAY. ABLE TO VERBALIZE NEEDS ABD REPORTED NO BM. SOME GRIMACE NOTED , PATIENT REPORTED SHE WANTS TO TAKE HER MEDICATION AT 2200. RESPIRATIONS EVEN AND UNLABORED. SKIN WARM TO TOUCH, BED LOCKED, CALL LIGHTS WITHIN REACH. IV ON RIGHT AC PATENT. RECEIVED REPORT FROM AM RN FOR RENAE. WLL MONITOR. PATIENT REQUIRE ASSISTANCE FOR SAFETY.
[2020-03-13] MEDS: ACETAMINOPHEN 325 MG TABLET PO SCH (21:44)
[2020-03-13] MEDS: ENOXAPARIN SODIUM 30 MG/0.3 ML DISP.SYRIN SQ SCH (21:54)
--- NOTE | 2020-03-14 06:28 | NUR ---
304-1 MS/RN NOTES PATIENT ABLE TO SLEEP FEW HOURS, ALL NEEDS ATTENDED. KEPT COMFORTABLE. ON OXYGEN VIA NC, BREATHING EVEN AND UNLABORED, MONITORED FOR ANY CHANGES. BED LOCKED, CALL LIGHTS WITHIN REACH. SAFETY PRECAUTION PROTOCOL. WILL ENDORSE TO AM RN FOR RENAE.
--- NOTE | 2020-03-14 07:24 | NUR ---
rn opening notes Patient received on nasal cannula, no sob noted, patient denies pain at this time. A/O x4 and is very pleasant. Bed at the lowest setting, call light within reach, side rails up x2.
[2020-03-14] MEDS: LEVOTHYROXINE SODIUM 112 MCG TABLET PO SCH (07:35)
[2020-03-14] MEDS: PANTOPRAZOLE 40 MG TABLET.DR PO SCH (07:35)
[2020-03-14] MEDS: ALLOPURINOL 100 MG TABLET PO SCH (08:17)
[2020-03-14] MEDS: FUROSEMIDE 40 MG/4 ML VIAL IV SCH (08:17)
[2020-03-14 08:18] VITALS: BP 150/76
[2020-03-14] MEDS: AMLODIPINE BESYLATE 5 MG TABLET PO SCH (08:18)
[2020-03-14] MEDS: CYANOCOBALAMIN 500 MCG TABLET PO SCH (08:18)
[2020-03-14] MEDS: CLOPIDOGREL BISULFATE 75 MG TABLET PO SCH (08:18)
[2020-03-14] MEDS: ASPIRIN 81 MG TAB.CHEW PO SCH (08:18)
[2020-03-14] MEDS: DOCUSATE SODIUM 100 MG CAPSULE PO SCH (08:18)
[2020-03-14] MEDS: BACLOFEN (10 MG) 10 MG TABLET PO SCH (08:18)
[2020-03-14] MEDS: METOPROLOL TARTRATE 50 MG TABLET PO SCH (08:18)
[2020-03-14] MEDS: CHOLECALCIFEROL 1,000 UNIT TABLET (VIT D3) PO SCH (08:18)
[2020-03-14] MEDS: CLOTRIMAZOLE 1% 15 GM TUBE TP SCH (08:19)
--- NOTE | 2020-03-14 13:18 | NUR ---
yarn texturing machine operator notes patient discharged at this time. no sob noted, patient denies pain at this time. Patient with belonging and states that nothing is missing. No further questions for the discharge. nothing missing and has all her belonging.
== END 2020-03-14 13:25 | disposition home or self-care (01) | DRG 291 ==
LOC: ER 14:37 → TELE 18:32 → MED 03-13 08:44
PROVIDERS: ADMIT Internal Medicine; ATTEND Internal Medicine
DX: I13.0 Hypertensive heart and chronic kidney disease with heart failure and stage 1 through stage 4 chronic kidney disease, or unspecified chronic kidney disease (principal); G93.41 Metabolic encephalopathy; E43 Unspecified severe protein-calorie malnutrition; I50.33 Acute on chronic diastolic (congestive) heart failure; D68.59 Other primary thrombophilia; N17.9 Acute kidney failure, unspecified; I42.2 Other hypertrophic cardiomyopathy; N18.3 Chronic kidney disease, stage 3 (moderate); E03.9 Hypothyroidism, unspecified; I25.10 Atherosclerotic heart disease of native coronary artery without angina pectoris; Z95.0 Presence of cardiac pacemaker; M19.90 Unspecified osteoarthritis, unspecified site; Z85.41 Personal history of malignant neoplasm of cervix uteri; Z88.5 Allergy status to narcotic agent; Z91.040 Latex allergy status; Z91.011 Allergy to milk products; Z79.82 Long term (current) use of aspirin; Z79.02 Long term (current) use of antithrombotics/antiplatelets; Z74.09 Other reduced mobility; J43.9 Emphysema, unspecified; N20.0 Calculus of kidney
CPT/HCPCS: 36415; 71045-TC; 80048-TC; 80061-TC; 80076-TC; 83735-TC; 83880; 84100-TC; 84484-TC; 85025-TC; 85730-TC; 87081-TC; 93307-TC; 97116-TC; 97530-TC; G0378; J1650; J1940

== ENCOUNTER 2021-03-31 14:11 | Inpatient (IN) | payer MEDICARE, BC ==
[~2021-03-31] VITALS: Ht 167.6 cm; Wt 63.0 kg
[~2021-03-31 14:11] MED LIST changes: +ACET-1951 PO; +ACET-868 PO; -ACET325T53 PO; -ALBU1.25 NEB; +AMLO-212 PO; +ASPI-1169 PO; +BACL10TA PO; +CHOL100040 PO; +CYAN-51 PO; +DOCU-141 PO; -DOXA1TAB17 PO; +FURO-145 PO; -HEPA50008 SQ; -HYDR-4077 PO; -IPRA0.2S9 NEB; +LEVO112T7 PO; -LEVO88TA5 PO; +MELO-107 PO; +PANT40TA49 PO; -SENN-261 PO; -SODI100037 PO
[2021-03-31 14:51] LABS: BASOPHILS # (AUTO) 0.1 /CMM (0.0-0.2); BASOPHILS % (AUTO) 0.6 % (0.0-2.0); EOSINOPHILS % (AUTO) 3.5 % (0.0-6.0); HEMATOCRIT 35 % (33-45); HEMOGLOBIN 11.6 g/dL (11.5-14.8); LYMPHOCYTES # (AUTO) 1.2 /CMM (0.8-4.8); MEAN CORPUSCULAR HGB CONC 33 g/dl (31.0-36.0); MEAN CORPUSCULAR VOLUME 96 fL (82-100); MONOCYTES # (AUTO) 0.6 /CMM (0.1-1.30); MONOCYTES % (AUTO) 5.6 % (2.0-12.0); NEUTROPHILS # (AUTO) 8.1 /CMM (1.8-8.9); NEUTROPHILS % (AUTO) 78.3 % (43.0-81.0); PLATELET COUNT (AUTO) 167 /CMM (150-450); RED BLOOD CELL COUNT(AUTO) 3.69 MIL/uL (4.0-5.2); WHITE BLOOD COUNT (AUTO) 10.3 K/uL (4.3-11.0)
--- NOTE | 2021-03-31 14:51 | NUR ---
COVID SWAB DONE AND SENT TO THE LAB
--- NOTE | 2021-03-31 15:04 | NUR ---
NURSING SUP GAVE 105.
[2021-03-31] MEDS ORDERED: ALPR0.255 PO (15:05)
[2021-03-31] MEDS ORDERED: CETI-90 PO (15:05)
[2021-03-31] MEDS ORDERED: TRAM50TA2 PO (15:05)
[2021-03-31] MEDS ORDERED: BISA10SU11 RC (15:05)
[2021-03-31 15:15] LABS: ALANINE AMINOTRANSFERASE 13 U/L (12-78); ALKALINE PHOSPHATASE 59 U/L (46-116); ASPARTATE AMINOTRANSFERASE 20 U/L (15-37); BILIRUBIN,DIRECT 0.1 mg/dL (0.0-0.2); BILIRUBIN,TOTAL 0.4 mg/dL (0.2-1.0); CALCIUM, SERUM 9.2 mg/dL (8.5-10.1); CHLORIDE 98 mmol/L (98-107); CREATININE 1.4 mg/dL (0.6-1.3); GLUCOSE 105 mg/dL (74-106); NT-PRO BNP 6626 pg/mL (0-125); POTASSIUM 4.2 mmol/L (3.5-5.1); SODIUM SERUM 139 mmol/L (136-145); TOTAL PROTEIN, SERUM 6.6 g/dL (6.4-8.2); UREA NITROGEN, BLOOD 16 mg/dL (7-18)
[2021-03-31 15:18] LABS: CARBON DIOXIDE 40 mmol/L (21-32)
[2021-03-31] MEDS ORDERED: FUROSEMIDE 20 MG/2 ML VIAL IV ONE (15:30)
[2021-03-31] MEDS ORDERED: FUROSEMIDE 20 MG/2 ML VIAL ONE (15:34)
--- NOTE | 2021-03-31 15:48 | NUR ---
report given to nurse beavers
--- NOTE | 2021-03-31 16:35 | NUR ---
RN NOTES RECEIVED PT FROM ER. REPORT GIVEN BY JOSH MENDOZA. A/O X3-4. ON 3L O2 VIA NASAL CANNULA. WITH SOB BUT NOT IN DISTRESS. NO PAIN REPORTED AT THIS TIME. SKIN IS INTACT. BELONGING LIST CHECKED AND SIGNED. SAFETY MEASURES IMPLEMENTED. CALL LIGHT WITHIN REACH. BED LOCKED AND IN LOWEST POSITION WITH SIDE RAILS X3. WILL CONTINUE TO MONITOR.
--- NOTE | 2021-03-31 16:35 | NUR ---
the patient is transfered in stable condition to room 105 and per acls policy.
[2021-03-31] MEDS ORDERED: ONDANSETRON HCL/PF 4 MG/2 ML VIAL IVP PRN (17:00)
[2021-03-31] MEDS ORDERED: Z GUARD REMEDY 2 OZ OINT TP PRN (17:00)
[2021-03-31] MEDS ORDERED: ZOLPIDEM TARTRATE 5 MG TABLET PO PRN (17:00)
[2021-03-31] MEDS ORDERED: TEMAZEPAM 7.5 MG CAPSULE PO PRN (18:30)
[2021-03-31 19:43] VITALS: BP 154/70
--- NOTE | 2021-03-31 20:00 | NUR ---
MARIANNE RN NOTES RECEIVED PTS IN BED, A/O X3-4. ON 3L O2 VIA NASAL CANNULA.ON TELE MONITOR A PACED ON THE MONITOR NO SOB NO DISTRESS NOTED. C/O OF PAIN 5/10 ,ON THE HEAD , TYLENOL 650MG GIVEN ORDERED , SKIN IS INTACT. ON LEFT AC g#18 HEPLOCK INTACT AND PATENT.SPOKE TO MD ANGELA PEREZ RE PTS REQUEST FOR STRONGER PAIN MEDS WITH ORDER FOR TRAMADOL 50MG VIA GT Q 6 HRS PRN FOR PAIN . SAFETY MEASURES IMPLEMENTED. CALL LIGHT WITHIN REACH. BED LOCKED AND IN LOWEST POSITION WITH SIDE RAILS X3. WILL CONTINUE TO MONITOR.
--- NOTE | 2021-03-31 20:09 | NUR ---
RN CLOSING NOTES NO SIGNIFICANT CHANGES DURING SHIFT. WITH SOB BUT NOT IN DISTRESS. CALLED DR. PEREZ TO VERIFY CODE STATUS, DNR/DNI ORDERED. SAFETY MEASURES STILL IN PLACE. WILL ENDORSE TO NIGHT NURSE FOR RENAE.
[2021-03-31] MEDS: ACETAMINOPHEN 325 MG TABLET PO PRN (20:20)
[2021-03-31] MEDS: AMLODIPINE BESYLATE 5 MG TABLET PO SCH (20:28)
[2021-03-31] MEDS: METOPROLOL TARTRATE 50 MG TABLET PO SCH (20:29)
[2021-03-31] MEDS ORDERED: FUROSEMIDE 40 MG/4 ML VIAL IV SCH (21:00)
[2021-03-31] MEDS: DOCUSATE SODIUM 100 MG CAPSULE PO SCH (23:00)
[2021-03-31] MEDS: TRAMADOL HCL 50 MG TABLET PO PRN (23:56)
[2021-04-01] VITALS: BP 135/81
[2021-04-01 04:00] VITALS: BP 141/67
[2021-04-01] MEDS: ALPRAZOLAM 0.25 MG TABLET PO PRN ×2 (05:40→23:46)
[2021-04-01 06:10] LABS: BASOPHILS % (AUTO) 0.2 % (0.0-2.0); EOSINOPHILS % (AUTO) 4.1 % (0.0-6.0); HEMATOCRIT 36 % (33-45); LYMPHOCYTES % (AUTO) 10.9 % (20.0-44.0); MEAN CORPUSCULAR HGB CONC 34 g/dl (31.0-36.0); MEAN CORPUSCULAR VOLUME 94 fL (82-100); MONOCYTES # (AUTO) 0.7 /CMM (0.1-1.30); NEUTROPHILS # (AUTO) 7.4 /CMM (1.8-8.9); NEUTROPHILS % (AUTO) 77.8 % (43.0-81.0); PLATELET COUNT (AUTO) 194 /CMM (150-450); WHITE BLOOD COUNT (AUTO) 9.5 K/uL (4.3-11.0)
[2021-04-01 06:19] LABS: CREATININE 1.3 mg/dL (0.6-1.3); MAGNESIUM 2.1 mg/dL (1.8-2.4); PHOSPHORUS 3.9 mg/dL (2.5-4.9); POTASSIUM 3.7 mmol/L (3.5-5.1)
--- NOTE | 2021-04-01 06:31 | NUR ---
dmitriy rn notes Pts in bed remains on 3 liters of o2 ,no sob no distress noted sating 94% all needs attended too .will endorse to rn day shift for continuity of care.
--- NOTE | 2021-04-01 07:17 | NUR ---
dmitriy rn notes received critical labs co2 42 relayed to tool chaser luis antonio awaiting for reply endorse to rn day shift for continuity of care.
[2021-04-01] MEDS: PANTOPRAZOLE 40 MG TABLET.DR PO SCH (07:48)
[2021-04-01] MEDS: LEVOTHYROXINE SODIUM 125 MCG TABLET PO SCH (07:48)
[2021-04-01 08:00] VITALS: BP 154/76
--- NOTE | 2021-04-01 08:07 | NUR ---
RN MARIANNE NOTE PATIENT ON BED, A/O X3, ABLE TO VERBALIZE NEEDS 02 SATURATION OF 95% VIA NC AT 3LPM, WITH LEFT AC IV LINE G18, PATENT INFUSING WELL, WILL CONTINUE TO MONITOR, BED WHEELS LOCK, BED IN LOW POSITION, CALL LIGHT WITHIN REACH.
[2021-04-01] MEDS: METOPROLOL TARTRATE 50 MG TABLET PO SCH ×2 (08:32→21:27)
[2021-04-01] MEDS: FOLIC ACID 1 MG TABLET PO SCH (08:32)
[2021-04-01] MEDS: ALLOPURINOL 100 MG TABLET PO SCH (08:33)
[2021-04-01] MEDS: CLOPIDOGREL BISULFATE 75 MG TABLET PO SCH (08:33)
[2021-04-01] MEDS: AMLODIPINE BESYLATE 5 MG TABLET PO SCH ×2 (08:53→21:27)
[2021-04-01] MEDS: MAG HYDROX/AL HYDROX/SIMETH 30 ML UDC PO PRN ×3 (09:03→21:29)
--- NOTE | 2021-04-01 09:09 | NUR ---
RN NOTE PATIENT SEEN BY DR. MULTANI, PATIENT COMPLAINS OF STOMACH PAIN MD ORDERED MYLANTA ORDER NOTED AND CARRIED OUT. NOTIFIED CO2 OF 42 MD AWARE
[2021-04-01 09:12] LABS: ABG BASE EXCESS 16.3 mmol/L; ABG PCO2 54.1 mmHg (35.0-45.0); ABG PH 7.506 (7.350-7.450); ABG PO2 51.4 mmHg (75.0-100.0); AaDO2 84.4 mmHg; MetHb 0.2 % (0.0-1.5); O2Hb 88.9 % (94.0-97.0); SITE, ABG Right Radial; VENT MODE, BG 2LPM NC
--- NOTE | 2021-04-01 09:30 | NUR ---
MARIANNE RN NOTE DR. DELATORRE CLINICAL QUALITY MANAGER AT BED SIDE, PATIENT CONDITION UPDATED, AWARE OF ABG RESULT CO2 OF 54.1 OK TO INCREASE TO 3LPM O2 VIA NC CANULA, AWARE OF O2 SATURATION OF 90% AT 2LPM, BEARING RING ASSEMBLER BLU HEEL GOUGER UPDATED WITH PATIENT CONDITION.
[2021-04-01] MEDS: acetaZOLAMIDE 250 MG TABLET PO SCH (10:29)
[2021-04-01] MEDS: ENOXAPARIN SODIUM 30 MG/0.3 ML DISP.SYRIN SQ SCH (10:36)
[2021-04-01 12:00] VITALS: BP 148/75
[2021-04-01] MEDS: ALBUTEROL HALF STRENGTH 1.25 MG/3 ML VIAL.NEB NEB SCH ×4 (12:45→23:30)
[2021-04-01] MEDS: IPRATROPIUM NEB FS 0.5 MG/2.5 ML AMPUL.NEB NEB SCH ×4 (12:46→23:30)
--- NOTE | 2021-04-01 15:02 | NUR ---
dmitriy alejandre note 2decho done as ordered , keep clean dry , per Yamel Jimenez dnp ok to insert Kearns cath to monitor closely urine output Addendum: 04/01/21 at 1528 by JASPAL CONTRERAS RN drew alejandre note on breathing tx as ordered by rt , Kearns cath inserted as ordered, will cont to monitor closely
[2021-04-01 16:00] VITALS: BP 124/78
--- NOTE | 2021-04-01 18:19 | NUR ---
MARIANNE RN NOTES PATIENT AWAKE IN BED, ABLE TO VERBALIZE NEEDS, DUE MEDICATION GIVEN ORDERED, SEEN BY MD, ORDERS NOTED AND CARRIED OUT, ON TELE SR AT THIS TIME WITH PVC HR 79, WITH LEFT AC G 18 FLUSH, PATENT. ON O2 VIA NC 3LPM O2 SATURATION OF 96%, CHAVEZ CATHETER INSERTED FR16 ORDERED, PATENT DRAINING WELL VIA GRAVITY. NEEDS MET AND ATTENDED, DUE MEDICATION GIVEN ORDERED, CALL LIGHT WITHIN REACH BED WHEELS LOCK, AND IN LOWEST POSITION, WILL ENDORSE TO NEXT SHIFT.
[2021-04-01 20:00] VITALS: BP 153/68
--- NOTE | 2021-04-01 20:00 | NUR ---
MARIANNE RN NOTES RECEIVED PTS IN BED, A/O X3-4. ON 3L O2 VIA NASAL CANNULA.ON TELE MONITOR AFIB ON THE MONITOR NO SOB NO DISTRESS NOTED. C/O OF PAIN 0/10 ,V/S STABLE AFEBRILE . SKIN IS INTACT. ON LEFT AC g#18 HEPLOCK INTACT AND PATENT.ALL DUE MEDS GIVEN ,WITH NO ASE NOTED , WITH F/C INTACT AND PATENT DRAINING WITH YELLOWISH URINE OUTPUT , SAFETY MEASURES IMPLEMENTED. CALL LIGHT WITHIN REACH. BED LOCKED AND IN LOWEST POSITION WITH SIDE RAILS X3. WILL CONTINUE TO MONITOR.
--- NOTE | 2021-04-01 20:24 | NUR ---
BREATHING TX NOT GIVEN . PCR COVID TEST RESULT STILL PENDING. RN LV AWARE. NO RESPIRATORY DISTRESS NOTED AT THIS TIME SPO2 96%.
[2021-04-01] MEDS: ATORVASTATIN 10 MG TABLET PO SCH (21:28)
[2021-04-01] MEDS: DOCUSATE SODIUM 100 MG CAPSULE PO SCH (21:28)
[2021-04-02] VITALS: BP 123/64
[2021-04-02] MEDS: ALBUTEROL HALF STRENGTH 1.25 MG/3 ML VIAL.NEB NEB SCH ×6 (03:26→23:29)
[2021-04-02] MEDS: IPRATROPIUM NEB FS 0.5 MG/2.5 ML AMPUL.NEB NEB SCH ×6 (03:26→23:29)
[2021-04-02 04:00] VITALS: BP 119/65
--- NOTE | 2021-04-02 05:53 | NUR ---
dmirtiy rn notes Pts in bed remains on 3 liters of o2 ,no sob no distress noted sating 989% all needs attended too .will endorse to rn day shift for continuity of care.
[2021-04-02 06:05] LABS: BASOPHILS % (AUTO) 0.3 % (0.0-2.0); EOSINOPHILS % (AUTO) 4.5 % (0.0-6.0); HEMATOCRIT 34 % (33-45); HEMOGLOBIN 11.4 g/dL (11.5-14.8); LYMPHOCYTES # (AUTO) 0.9 /CMM (0.8-4.8); LYMPHOCYTES % (AUTO) 12.3 % (20.0-44.0); MEAN CORPUSCULAR HGB CONC 34 g/dl (31.0-36.0); MEAN CORPUSCULAR VOLUME 94 fL (82-100); MONOCYTES # (AUTO) 0.5 /CMM (0.1-1.30); MONOCYTES % (AUTO) 6.9 % (2.0-12.0); NEUTROPHILS # (AUTO) 5.7 /CMM (1.8-8.9); PLATELET COUNT (AUTO) 175 /CMM (150-450); RED BLOOD CELL COUNT(AUTO) 3.58 MIL/uL (4.0-5.2); WHITE BLOOD COUNT (AUTO) 7.5 K/uL (4.3-11.0)
[2021-04-02 06:16] LABS: CALCIUM, SERUM 8.9 mg/dL (8.5-10.1); CARBON DIOXIDE 38 mmol/L (21-32); CHLORIDE 96 mmol/L (98-107); CREATININE 1.5 mg/dL (0.6-1.3); GLUCOSE 97 mg/dL (74-106); MAGNESIUM 2.3 mg/dL (1.8-2.4); PHOSPHORUS 3.9 mg/dL (2.5-4.9); POTASSIUM 3.4 mmol/L (3.5-5.1); SODIUM SERUM 136 mmol/L (136-145); UREA NITROGEN, BLOOD 18 mg/dL (7-18)
--- NOTE | 2021-04-02 07:30 | NUR ---
MARIANNE RN NOTES RECEIVED PTS IN BED, A/O X3-4. ON 3L O2 VIA NASAL CANNULA.ON TELE MONITOR AFIB ON THE MONITOR NO SOB NO DISTRESS NOTED. C/O OF PAIN 0/10 ,V/S STABLE AFEBRILE . SKIN IS INTACT. ON LEFT AC g#18 HEPLOCK INTACT AND PATENT. , WITH F/C INTACT AND PATENT DRAINING WITH YELLOWISH URINE OUTPUT , SAFETY MEASURES IMPLEMENTED. CALL LIGHT WITHIN REACH. BED LOCKED AND IN LOWEST POSITION WITH SIDE RAILS X3. WILL CONTINUE TO MONITOR.
[2021-04-02 08:00] VITALS: BP 142/66
[2021-04-02] MEDS ORDERED: POTASSIUM CHLORIDE 20 MEQ TAB.PRT.SR PO ONE (08:00)
[2021-04-02] MEDS: acetaZOLAMIDE 250 MG TABLET PO SCH (08:25)
[2021-04-02] MEDS: METOPROLOL TARTRATE 50 MG TABLET PO SCH ×2 (08:32→21:21)
[2021-04-02] MEDS: AMLODIPINE BESYLATE 5 MG TABLET PO SCH ×2 (08:33→21:21)
[2021-04-02] MEDS: LEVOTHYROXINE SODIUM 125 MCG TABLET PO SCH (08:34)
[2021-04-02] MEDS: CLOPIDOGREL BISULFATE 75 MG TABLET PO SCH (08:34)
[2021-04-02] MEDS: FOLIC ACID 1 MG TABLET PO SCH (08:34)
[2021-04-02] MEDS: PANTOPRAZOLE 40 MG TABLET.DR PO SCH (08:35)
[2021-04-02] MEDS: ALLOPURINOL 100 MG TABLET PO SCH (08:35)
--- NOTE | 2021-04-02 09:30 | NUR ---
TELE NOTES DUE MEDS GIVEN. DC MARIANNE STATUS PER DR. MCNULTY
[2021-04-02] MEDS: ENOXAPARIN SODIUM 30 MG/0.3 ML DISP.SYRIN SQ SCH (11:05)
[2021-04-02] MEDS: TRAMADOL HCL 50 MG TABLET PO PRN ×2 (11:52→19:53)
[2021-04-02 12:00] VITALS: BP 128/64
[2021-04-02 16:00] VITALS: BP 137/68
[2021-04-02] MEDS: ENSURE ENLIVE CHOC 237 ML CAN PO SCH ×2 (16:01→18:05)
--- NOTE | 2021-04-02 18:47 | NUR ---
RN NOTES ALL NEEDS MET. DUE MEDS GIVEN, NOT IN ANY DISTRESS, RESPIRATION UNLABORED. CHAVEZ CATH IN PLACE, 500ML OUTPUT. PM CARE DONE. ASSISTED IN TURNING AND REPOSITIONING. NO OTHER SIGNIFICANT CHANGE IN CONDITION. WILL ENDORSE TO NEXT SHIFT FOR RENAE.
--- NOTE | 2021-04-02 19:30 | NUR ---
RN OPENING NOTES: RECEIVED PT A/OX3-4 IN BED RESTING COMFORTABLY. PATIENT IN NO S/SX OF ACUTE DISTRESS AT THIS TIME. NO SOB NOTED. PATIENT'S BREATHING IS EVEN AND UNLABORED. PATIENT IS ON 3L OF OXYGEN VIA NC; TOLERATING WELL. PATIENT ON TELE MONITORING READING SINUS RHYTHM HR IS @70S AT THE TIME OF RECEIVED. PATIENT ON 2G SODIUM DIET; TOLERATES WELL. NOTED IV SITE ON L AC#18; PATENT, INTACT AND FLUSHING WELL; NO S/S OF INFECTION OR INFILTRATION. CHAVEZ CATH IN PLACE, MINIMAL URINE OUTPUT NOTED .SAFETY MEASURES HAVE BEEN PROVIDED & IMPLEMENTED. PATIENT BED ALARM IS ON. HEAD OF BED ELEVATED. BED IS LOCKED, IN LOWEST POSITION AND SIDE RAILS UP. CALL LIGHT WITHIN REACH OF THE PATIENT. APPLICABLE ISOLATION PRECAUTIONS IN PLACE. WILL CONTINUE TO MONITOR AND REASSESS FOR ANY CHANGES AND WILL CARRY OUT ANY ONGOING AND ACTIVE MD ORDER.
[2021-04-02 20:00] VITALS: BP 120/61
[2021-04-02] MEDS: ATORVASTATIN 10 MG TABLET PO SCH (21:21)
[2021-04-02] MEDS: DOCUSATE SODIUM 100 MG CAPSULE PO SCH (21:21)
--- NOTE | 2021-04-02 23:00 | NUR ---
RN NOTES NO CHANGE IN PATIENT CONDITION AT THIS TIME PATIENT VITALS STABLE, NO SIGNS OF ACUTE RESPIRATORY DISTRESS. STACKER TENDER MADE AWARE. WILL CONTINUE TO MONITOR AND REASSESS FOR ANY CHANGES THROUGHOUT THE SHIFT.
[2021-04-03] VITALS: BP 112/58
[2021-04-03] MEDS: IPRATROPIUM NEB FS 0.5 MG/2.5 ML AMPUL.NEB NEB SCH ×5 (03:22→19:50)
[2021-04-03] MEDS: ALBUTEROL HALF STRENGTH 1.25 MG/3 ML VIAL.NEB NEB SCH ×5 (03:23→19:50)
[2021-04-03] MEDS: TRAMADOL HCL 50 MG TABLET PO PRN (03:26)
--- NOTE | 2021-04-03 03:30 | NUR ---
RN NOTES PATIENT REMAINS IN NO ACUTE RESPIRATORY DISTRESS AT THIS TIME, NO CHANGES TO CONDITION/STATUS. AM PATIENT CARE DONE. QUANTITATIVE EQUITY HEAD WELL AWARE. WILL CONTINUE TO MONITOR AND REASSESS FOR ANY CHANGES THROUGHOUT THE SHIFT
[2021-04-03 04:00] VITALS: BP 123/64
[2021-04-03 06:35] LABS: BASOPHILS % (AUTO) 0.4 % (0.0-2.0); EOSINOPHILS % (AUTO) 5.2 % (0.0-6.0); HEMATOCRIT 34 % (33-45); HEMOGLOBIN 11.5 g/dL (11.5-14.8); LYMPHOCYTES # (AUTO) 0.9 /CMM (0.8-4.8); LYMPHOCYTES % (AUTO) 12.3 % (20.0-44.0); MEAN CORPUSCULAR HGB CONC 34 g/dl (31.0-36.0); MEAN CORPUSCULAR VOLUME 93 fL (82-100); MONOCYTES # (AUTO) 0.7 /CMM (0.1-1.30); MONOCYTES % (AUTO) 9.5 % (2.0-12.0); NEUTROPHILS # (AUTO) 5.2 /CMM (1.8-8.9); NEUTROPHILS % (AUTO) 72.6 % (43.0-81.0); PLATELET COUNT (AUTO) 170 /CMM (150-450); RED BLOOD CELL COUNT(AUTO) 3.61 MIL/uL (4.0-5.2); WHITE BLOOD COUNT (AUTO) 7.2 K/uL (4.3-11.0)
--- NOTE | 2021-04-03 06:50 | NUR ---
RN CLOSING NOTE: PATIENT REMAINS IN ROOM IN NO SIGNS OF RESPIRATORY DISTRESS, PATIENT STILL ON 3L OF O2 VIA NC;TOLERATING WELL SATURATING @ >95% SP02. SAFETY MEASURES IMPLEMENTED, BED IN LOWEST POSITION, LOCKED, SIDE RAILS UP, CALL LIGHT WITHIN REACH. ALL NEEDS AND ORDERS ADDRESSED DURING THE SHIFT. IV ACCESS MAINTAINED INTACT, SECURED AND FLUSHING WELL. ALL DUE MEDS GIVEN ORDERED & SCHEDULED ; PATIENT TOLERATED WELL. PATIENT KEPT CLEAN & COMFORTABLE WITHIN THE SHIFT. PATIENT ENDORSED TO INCOMING SHIFT RN WITH STABLE VITAL SIGN AND FOR CONTINUITY OF CARE.
[2021-04-03 07:00] LABS: CALCIUM, SERUM 8.9 mg/dL (8.5-10.1); CARBON DIOXIDE 37 mmol/L (21-32); CHLORIDE 95 mmol/L (98-107); CREATININE 1.5 mg/dL (0.6-1.3); GLUCOSE 96 mg/dL (74-106); MAGNESIUM 2.4 mg/dL (1.8-2.4); PHOSPHORUS 4.3 mg/dL (2.5-4.9); POTASSIUM 3.5 mmol/L (3.5-5.1); SODIUM SERUM 135 mmol/L (136-145); UREA NITROGEN, BLOOD 23 mg/dL (7-18)
--- NOTE | 2021-04-03 07:30 | NUR ---
KEYPUNCH OPERATOR NOTES RECEIVED PTS IN BED, A/O X3-4. ON 3L O2 VIA NASAL CANNULA. ON TELE MONITOR SR ON MONITOR NO SOB NO DISTRESS NOTED. DENIES PAIN AT THIS TIME, WITH LEFT AC G18 IV ACCESS FLUSHES WELL, SITE CLEAR. BEDREST, WITH F/C INTACT AND PATENT DRAINING WITH YELLOW COLORED URINE, ADEQUATE AMOUNT, SAFETY MEASURES IMPLEMENTED. CALL LIGHT WITHIN REACH. BED LOCKED AND IN LOWEST POSITION WITH SIDE RAILS X3. WILL CONTINUE TO MONITOR.
[2021-04-03] MEDS: LEVOTHYROXINE SODIUM 125 MCG TABLET PO SCH (07:58)
[2021-04-03] MEDS: PANTOPRAZOLE 40 MG TABLET.DR PO SCH (07:58)
[2021-04-03 08:00] VITALS: BP 123/57
[2021-04-03] MEDS: ENSURE ENLIVE CHOC 237 ML CAN PO SCH ×3 (08:00→16:28)
[2021-04-03] MEDS: METOPROLOL TARTRATE 50 MG TABLET PO SCH ×2 (08:24→21:00)
[2021-04-03] MEDS: ALLOPURINOL 100 MG TABLET PO SCH (08:25)
[2021-04-03] MEDS: CLOPIDOGREL BISULFATE 75 MG TABLET PO SCH (08:25)
[2021-04-03] MEDS: AMLODIPINE BESYLATE 5 MG TABLET PO SCH ×2 (08:25→21:00)
[2021-04-03] MEDS: FOLIC ACID 1 MG TABLET PO SCH (08:25)
[2021-04-03] MEDS: acetaZOLAMIDE 250 MG TABLET PO SCH (08:27)
[2021-04-03] MEDS: ALPRAZOLAM 0.25 MG TABLET PO PRN (09:08)
[2021-04-03] MEDS: ACETAMINOPHEN 325 MG TABLET PO PRN ×2 (09:08→15:12)
[2021-04-03 09:21] LABS: ABG BASE EXCESS 8.7 mmol/L; ABG OXYGEN SATURATION 97.6 % (92.0-98.5); ABG PCO2 61.2 mmHg (35.0-45.0); ABG PH 7.384 (7.350-7.450); ABG PO2 98.3 mmHg (75.0-100.0); AaDO2 58.3 mmHg; COHb 0.5 % (0.5-1.5); MetHb 0.1 % (0.0-1.5); SITE, ABG Right Radial; VENT MODE, BG nasal cannula
[2021-04-03] MEDS: ENOXAPARIN SODIUM 30 MG/0.3 ML DISP.SYRIN SQ SCH (09:23)
--- NOTE | 2021-04-03 09:30 | NUR ---
TELE NOTES DUE MEDS GIVEN. DC MARIANNE STATUS PER DR. MCNULTY Addendum: 04/03/21 at 1333 by GIOVANNY DURANT RN CORRECTION: DC TELEMETRY STATUS PER DR. MCNULTY.
--- NOTE | 2021-04-03 09:35 | NUR ---
RN NOTES ABG RESULT RELAYED TO DR. ROSARIO WITH ORDER BIPAP AT [facility]. [facility] RESP THERAPIST AWARE.
--- NOTE | 2021-04-03 09:49 | NUR ---
RT NOTE: ALERT PATIENT'S OXYGEN FLOW DECREASED TO 2LPM PER AFTER ABG RESULTS. PATIENT'S RESPIRATIONS ARE EVEN AND UNLABORED. WILL CONTINUE TO MONITOR.
[2021-04-03 09:57] LABS: BILIRUBIN,URINE SMALL (NEGATIVE); COLOR,URINE YELLOW (YELLOW); LEUKOCYTE ESTERASE ,URINE MODERATE (NEGATIVE); NITRITE, URINE NEGATIVE (NEGATIVE); PH,URINE 8.5 (5.0-8.0); PROTEIN,URINE NEGATIVE (NEGATIVE); UGLUCOSE NEGATIVE (NEGATIVE); UROBILINOGEN,URINE 0.2 EU/dL (0.2)
[2021-04-03 10:03] LABS: CREATININE, URINE 137.2 MG/DL (30.0-125.0); URINE TOTAL PROTEIN 34.1 mg/dL (0-11.9)
[2021-04-03 11:01] LABS: BACTERIA,URINE Few /HPF (None Seen); SQUAMOUS EPITHELIAL CELL,UR Moderate /HPF (None Seen); WBC,URINE TOO NUMEROUS TO COUN /HPF (0-3)
[2021-04-03 11:45] LABS: EOSINOPHIL,URINE None Seen
[2021-04-03 12:00] VITALS: BP 133/68
[2021-04-03 16:00] VITALS: BP 117/57
--- NOTE | 2021-04-03 18:36 | NUR ---
MS RN CLOSING NOTES PT IN BED, A/O X3-4. ON 2L O2 VIA NASAL CANNULA. NO SOB NO DISTRESS NOTED. DENIES PAIN AT THIS TIME, WITH LEFT AC G18 IV ACCESS FLUSHES WELL, SITE CLEAR. BEDREST, WITH F/C INTACT AND PATENT DRAINING YELLOW COLORED URINE, 300 ML. SAFETY MEASURES IMPLEMENTED. CALL LIGHT WITHIN REACH. BED LOCKED AND IN LOWEST POSITION WITH SIDE RAILS X3. ALL NEEDS MET AT THIS TIME. PM CARE DONE. ASSISTED IN TURNING AND REPOSITIONING. NO OTHER SIGNIFICANT CHANGE IN CONDITION. WILL ENDORSE TO NEXT SHIFT FOR RENAE.
[2021-04-03] MEDS: MAG HYDROX/AL HYDROX/SIMETH 30 ML UDC PO PRN (18:42)
--- NOTE | 2021-04-03 19:20 | NUR ---
MS RN NOTES RECEIVED ON BED SLEEPING,BREATHING REGULAR,NOT IN ANY FORM OF DISTRESS,O3 IN USED AT2L.NC TO KEEP O2 SAT ABOVE 90%.SALINE LOCK LEFT AC INTACT AND PATENT.FALL RISK,BED ALARM TRIGGERED,BED ON LOWEST POSITION AND LOCKED.CHAVEZ CATH IN PLACE DRAINING YELLOWISH OUTPUT,CALL LIGHT IN REACH,NEEDS ANTICIPATED.
[2021-04-03 20:00] VITALS: BP 98/59
--- NOTE | 2021-04-03 21:00 | NUR ---
MS1 RN NOTES BLOOD PRESSURE PILL HELD DUE TO LOW BP 98/59MPULSE 72
[2021-04-03] MEDS: DOCUSATE SODIUM 100 MG CAPSULE PO SCH (21:30)
[2021-04-03] MEDS: ATORVASTATIN 10 MG TABLET PO SCH (21:30)
[2021-04-04] MEDS: IPRATROPIUM NEB FS 0.5 MG/2.5 ML AMPUL.NEB NEB SCH ×5 (00:04→15:30)
[2021-04-04] MEDS: ALBUTEROL HALF STRENGTH 1.25 MG/3 ML VIAL.NEB NEB SCH ×5 (00:04→15:30)
--- NOTE | 2021-04-04 00:05 | NUR ---
RT NOTE ATTEMPTED TO PLACE PATIENT ON BIPAP. PATIENT VERBALLY REFUSING TO USE BIPAP TONIGHT. EXPLAINED TO PATIENT USE OF BIPAP AND BENEFITS IT PROVIDES BUT PATIENT STILL REFUSING. PATIENT CURRENTLY AWAKE, ALERT AND ORIENTED ON 2LPM NASAL CANNULA SATURATION 93%. PRIMARY NURSE AWARE OF PATIENT REFUSING BIPAP. WILL CONTINUE TO MONITOR PATIENT.
[2021-04-04] MEDS: TRAMADOL HCL 50 MG TABLET PO PRN ×2 (03:17→13:05)
--- NOTE | 2021-04-04 03:17 | NUR ---
MS1 RN NOTES PAIN MANAGEMENT C/O ABDOMINAL PAIN 7/10 ON PAIN SCALE,TRAMADOL 50MG PO GIVEN ORDERED.
[2021-04-04] MEDS: ALPRAZOLAM 0.25 MG TABLET PO PRN ×2 (03:53→16:13)
--- NOTE | 2021-04-04 03:53 | NUR ---
MS1 RN NOTES FEELING ANXIOUS,XANAX 0.25MG PO GIVEN ORDERED FOR ANXIETY.
[2021-04-04 04:00] VITALS: BP 140/70
--- NOTE | 2021-04-04 06:42 | NUR ---
MS1 RN NOTES SLEEPING AROUSABLE TO VERBAL STIMULI,NO EPISODE OF SOB,REFUSED BIPAP AT NIGHT,REPOSITION PER PROTOCOL.CHAVEZ REMAINS PATENT,EMPTIED 350ML URINE OUTPUT.DNR/DNI STATUS.IN NO ACUTE DISTRESS.
[2021-04-04 08:00] VITALS: BP 122/57
[2021-04-04] MEDS: LEVOTHYROXINE SODIUM 125 MCG TABLET PO SCH (08:06)
[2021-04-04] MEDS: PANTOPRAZOLE 40 MG TABLET.DR PO SCH (08:06)
[2021-04-04] MEDS: FOLIC ACID 1 MG TABLET PO SCH (08:06)
[2021-04-04] MEDS: METOPROLOL TARTRATE 50 MG TABLET PO SCH (08:06)
[2021-04-04] MEDS: CLOPIDOGREL BISULFATE 75 MG TABLET PO SCH (08:06)
[2021-04-04] MEDS: ALLOPURINOL 100 MG TABLET PO SCH (08:06)
[2021-04-04] MEDS: ENSURE ENLIVE CHOC 237 ML CAN PO SCH ×3 (08:07→16:13)
[2021-04-04] MEDS: AMLODIPINE BESYLATE 5 MG TABLET PO SCH (08:09)
[2021-04-04] MEDS: acetaZOLAMIDE 250 MG TABLET PO SCH (09:00)
[2021-04-04] MEDS: ACETAMINOPHEN 325 MG TABLET PO PRN ×2 (09:51→16:13)
[2021-04-04] MEDS: ENOXAPARIN SODIUM 30 MG/0.3 ML DISP.SYRIN SQ SCH (12:12)
[2021-04-04 13:07] LABS: CARBON DIOXIDE 36 mmol/L (21-32); CHLORIDE 96 mmol/L (98-107); CREATININE 1.5 mg/dL (0.6-1.3); GLUCOSE 117 mg/dL (74-106); POTASSIUM 3.6 mmol/L (3.5-5.1); SODIUM SERUM 137 mmol/L (136-145); UREA NITROGEN, BLOOD 29 mg/dL (7-18)
[2021-04-04 13:12] LABS: BASOPHILS % (AUTO) 0.3 % (0.0-2.0); HEMATOCRIT 33 % (33-45); HEMOGLOBIN 11.2 g/dL (11.5-14.8); LYMPHOCYTES # (AUTO) 0.8 /CMM (0.8-4.8); LYMPHOCYTES % (AUTO) 9.5 % (20.0-44.0); MEAN CORPUSCULAR HGB CONC 34 g/dl (31.0-36.0); MEAN CORPUSCULAR VOLUME 93 fL (82-100); MONOCYTES # (AUTO) 0.6 /CMM (0.1-1.30); MONOCYTES % (AUTO) 6.9 % (2.0-12.0); NEUTROPHILS # (AUTO) 6.5 /CMM (1.8-8.9); NEUTROPHILS % (AUTO) 80.3 % (43.0-81.0); PLATELET COUNT (AUTO) 193 /CMM (150-450); RED BLOOD CELL COUNT(AUTO) 3.53 MIL/uL (4.0-5.2); WHITE BLOOD COUNT (AUTO) 8.1 K/uL (4.3-11.0)
[2021-04-04] MEDS ORDERED: ATOR10TA PO (15:47)
[2021-04-04 16:00] VITALS: BP 126/66
--- NOTE | 2021-04-04 18:00 | NUR ---
RN CLOSING NOTE PATIENT D/C HOME. PAPERWORK COMPLETED AND SIGNED. CHAVEZ CATHETER AND IV SITE DISCONTINUED. ID REMOVED
[2021-04-07] MEDS ORDERED: Aspirin/Acetaminophen/Caffeine PO (16:02)
[2021-04-07] MEDS ORDERED: CEPH500C2 PO (16:02)
[2021-04-07] MEDS ORDERED: methylPREDNISolone SOD SUCC IV (16:02)
[2021-04-07] MEDS ORDERED: DILT240C88 PO (16:02)
== END 2021-04-04 18:00 | disposition home health service (06) | DRG 291 ==
LOC: ER 14:16 → TELE-TD 16:13 → TELE1 04-02 07:52 → MEDSG1 04-03 08:03
PROVIDERS: ADMIT Nurse Practitioner Acute Care; ATTEND Nurse Practitioner Acute Care
DX: I13.0 Hypertensive heart and chronic kidney disease with heart failure and stage 1 through stage 4 chronic kidney disease, or unspecified chronic kidney disease (principal); G93.41 Metabolic encephalopathy; I50.33 Acute on chronic diastolic (congestive) heart failure; J96.01 Acute respiratory failure with hypoxia; J96.02 Acute respiratory failure with hypercapnia; D68.59 Other primary thrombophilia; E44.0 Moderate protein-calorie malnutrition; E87.3 Alkalosis; N17.9 Acute kidney failure, unspecified; I42.2 Other hypertrophic cardiomyopathy; E03.9 Hypothyroidism, unspecified; Z20.822 Contact with and (suspected) exposure to COVID-19; E78.5 Hyperlipidemia, unspecified; E87.6 Hypokalemia; G47.00 Insomnia, unspecified; Z74.09 Other reduced mobility; Z85.41 Personal history of malignant neoplasm of cervix uteri; Z95.0 Presence of cardiac pacemaker; Z79.82 Long term (current) use of aspirin; Z79.02 Long term (current) use of antithrombotics/antiplatelets; I25.10 Atherosclerotic heart disease of native coronary artery without angina pectoris; M19.90 Unspecified osteoarthritis, unspecified site; Z88.5 Allergy status to narcotic agent; Z91.040 Latex allergy status; Z91.011 Allergy to milk products; N18.30 Chronic kidney disease, stage 3 unspecified; I70.0 Atherosclerosis of aorta; F17.218 Nicotine dependence, cigarettes, with other nicotine-induced disorders; J44.9 Chronic obstructive pulmonary disease, unspecified
CPT/HCPCS: 36415; 36600; 71045-TC; 80048-TC; 80061-TC; 80076-TC; 81001; 82570-TC; 82803-TC; 83735-TC; 83880; 84100-TC; 84155-TC; 84300-TC; 84484-TC; 85025-TC; 87081-TC; 87086-TC; 93307-TC; 94799-TC; 97116-TC; 97530-TC; G0378; J1650; J1940; U0003

== ENCOUNTER 2021-04-04 22:52 | Inpatient (IN) | payer MEDICARE, BC ==
[~2021-04-04] VITALS: Ht 165.1 cm; Wt 60.8 kg
[~2021-04-04 22:52] MED LIST changes: -ACET-1951 PO; -ACET-868 PO; +ALPR0.255 PO; +ATOR10TA PO; -BACL10TA PO; +BISA10SU11 RC; +CETI-90 PO; -MELO-107 PO; -METO100T14 PO; +TRAM50TA2 PO
--- NOTE | 2021-04-04 23:09 | NUR ---
PT WAS BIB RA FROM HOME FOR C/O LOW O2 SAT. PER EMS PT WAS HOLDING AN O2 SAT OF 98% ON O2 HER SUPPLEMENTAL O2 OF 3 LPM VIA NC AT HOME. 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 PT WAS PLACED IN BED 4 ER, ON MONITOR. AWAITING FOR MD'S EVAL AND ORDERS
--- NOTE | 2021-04-04 23:18 | NUR ---
DR KOROMA AT BED SIDE
[2021-04-04] MEDS ORDERED: FUROSEMIDE 20 MG/2 ML VIAL ONE (23:26)
[2021-04-04] MEDS ORDERED: ENALAPRILAT INJ (1.25 MG/ML) 1.25 MG/ML VIAL IV ONE (23:26)
[2021-04-04] MEDS ORDERED: IV NS 0.9% 500 ML BAG IV ONE (23:30)
[2021-04-04] MEDS ORDERED: ENALAPRILAT DIHYD. (2.5MG/2ML) 1.25 MG/ML VIAL IV ONE (23:30)
[2021-04-04] MEDS ORDERED: FUROSEMIDE 40 MG/4 ML VIAL IV ONE (23:30)
[2021-04-04 23:37] LABS: BASOPHILS % (AUTO) 0.4 % (0.0-2.0); EOSINOPHILS % (AUTO) 3.9 % (0.0-6.0); HEMATOCRIT 36 % (33-45); HEMOGLOBIN 12.1 g/dL (11.5-14.8); LYMPHOCYTES # (AUTO) 0.9 /CMM (0.8-4.8); LYMPHOCYTES % (AUTO) 11.5 % (20.0-44.0); MEAN CORPUSCULAR HGB CONC 33 g/dl (31.0-36.0); MEAN CORPUSCULAR VOLUME 94 fL (82-100); MONOCYTES # (AUTO) 0.6 /CMM (0.1-1.30); MONOCYTES % (AUTO) 7.7 % (2.0-12.0); NEUTROPHILS # (AUTO) 6.1 /CMM (1.8-8.9); NEUTROPHILS % (AUTO) 76.5 % (43.0-81.0); PLATELET COUNT (AUTO) 194 /CMM (150-450); RED BLOOD CELL COUNT(AUTO) 3.88 MIL/uL (4.0-5.2)
[2021-04-04 23:56] LABS: CALCIUM, SERUM 9.6 mg/dL (8.5-10.1); CARBON DIOXIDE 37 mmol/L (21-32); CHLORIDE 96 mmol/L (98-107); CREATININE 1.6 mg/dL (0.6-1.3); GLUCOSE 118 mg/dL (74-106); POTASSIUM 3.5 mmol/L (3.5-5.1); SODIUM SERUM 137 mmol/L (136-145); UREA NITROGEN, BLOOD 31 mg/dL (7-18)
[2021-04-05] VITALS (7 sets, daily range): BP systolic 105–131; BP diastolic 60–70
[2021-04-05 00:05] LABS: ALANINE AMINOTRANSFERASE 12 U/L (12-78); ALBUMIN 3.1 g/dL (3.4-5.0); ALKALINE PHOSPHATASE 57 U/L (46-116); ASPARTATE AMINOTRANSFERASE 17 U/L (15-37); BILIRUBIN,DIRECT 0.1 mg/dL (0.0-0.2); BILIRUBIN,TOTAL 0.3 mg/dL (0.2-1.0); NT-PRO BNP 9168 pg/mL (0-125)
--- NOTE | 2021-04-05 00:05 | NUR ---
URINE COLLECTED AND SENT TO THE LAB.
[2021-04-05 00:15] LABS: BILIRUBIN,URINE NEGATIVE (NEGATIVE); COLOR,URINE YELLOW (YELLOW); LEUKOCYTE ESTERASE ,URINE LARGE (NEGATIVE); NITRITE, URINE NEGATIVE (NEGATIVE); PH,URINE 8.5 (5.0-8.0); PROTEIN,URINE NEGATIVE (NEGATIVE); UGLUCOSE NEGATIVE (NEGATIVE); UROBILINOGEN,URINE 0.2 EU/dL (0.2)
[2021-04-05 00:39] LABS: BACTERIA,URINE Many /HPF (None Seen); SQUAMOUS EPITHELIAL CELL,UR Many /HPF (None Seen); WBC,URINE 51-80 /HPF (0-3)
[2021-04-05] MEDS ORDERED: TEMAZEPAM 15 MG CAPSULE PO PRN (01:00)
[2021-04-05] MEDS ORDERED: NITROFURANTOIN/NITROFURAN MONOHYDRATE 100 MG CAPSULE PO ONE (01:00)
[2021-04-05] MEDS ORDERED: ONDANSETRON HCL/PF 4 MG/2 ML VIAL IVP PRN (01:00)
[2021-04-05] MEDS ORDERED: MAGNESIUM HYDROXIDE 30 ML UDC PO PRN (01:00)
[2021-04-05] MEDS ORDERED: CEFTRIAXONE 1GM BAG (ER ONLY) 50 ML IV ONE (01:06)
[2021-04-05] MEDS ORDERED: NITROFURANTOIN/NITROFURAN MONOHYDRATE 100 MG CAPSULE ONE (01:07)
[2021-04-05] MEDS: CEFTRIAXONE 1 G in IV D5W 50 ML IV SCH (01:16)
--- NOTE | 2021-04-05 01:50 | NUR ---
REPORT GIVEN TO BIC RN FOR RENAE.
--- NOTE | 2021-04-05 02:26 | NUR ---
PT WAS TRANSFERRED TO 310 UNDER ACLS.
--- NOTE | 2021-04-05 04:23 | NUR ---
WOOD HEEL ATTACHER OPENING ADMISSION NOTES: RECEIVED PATIENT FROM ER AWAKE, A/OX4, NO COMPLAIN OF PAIN AND DISCOMFORT, ON BED REST, DIET: CARDIAC ON 2GM NA, PATIENT CAME FROM HOME ABOUT 5 HOUR FROM DISCHARGED TO [facility] WHEN THE FAMILY SEND HER BACK TO ER WITH CC OF DECLINING O2 SAT WITH SOB, NO SOB NOTED AT THIS TIME ON O2 INHALATION AT 3LPM. IV LINE AT LAC #22, PATENT AND NFUSING WELL, SKIN IS WARM TO TOUCH INTACT NO SKIN BREAKDOWN , PATIENT WAS ORIENTED TO ROOM, REMIND TO USE THE CALL LIGHTS WHEN NEEDED ASISTANCE, INVENTORIES OF ITME DONE, AND SIGNED, ON TELE MONITORING WITH INITIAL READING OF NSR, HR-76, PATIENT KEPT CLEAN AND DRY, ALL NEEDS MET, WILL CONTINUE TO MONITOR.
--- NOTE | 2021-04-05 06:30 | NUR ---
METAL CEILING BUILDER CLOSING NOTES: PATIENT SLEEP IN BED COMFORTABLY,A/OX 3 ABLE TO EXPRESS NEEDS, BED IN LOW POSITION, CALL LIGHTS WITHIN REACH, NO COMPLAIN OF PAIN AND DISCOMFORT, ON O2 INHALATION AT 3LPM HOB AT 45 DEGREEE NO SOB NOTED, WITH DVT PUMP BUT PATIENT REFUSE TO USE IT, KEPT CLEAN LIGIA WILL CONTINUE TO MONITOR.
[2021-04-05] MEDS: PANTOPRAZOLE 40 MG TABLET.DR PO SCH (07:45)
--- NOTE | 2021-04-05 07:55 | NUR ---
RN OPENING NOTE RECEIVED PATIENT IN BED, AO X 3-4, ABLE TO RESPONDS ALL STIMULI. PATIENT C/O NAUSEA AND VOMITED X 1 IN THIS MORNING, GIVEN ZOFRAN VIA IV PUSH. SKIN IS WARM TO TOUCH, KEEP CLEAN/DRY INTACT IV SITE. RESPIRATORY EVEN AND UNLABORED WITH OXYGEN AT 3LPM. KEPT ELEVATED HOB FOR ENSURE AIR AND ASPIRATION PRECAUTION, ALSO LOWEST BED POSITION FOR SAFETY. CALL LIGHT WITHIN REACH, WILL CONTINUE TO MONITOR.
[2021-04-05] MEDS: FUROSEMIDE 40 MG/4 ML VIAL IV SCH (08:34)
--- NOTE | 2021-04-05 10:00 | NUR ---
PATIENT C/O HEADACHE 5/10 IN PAIN SCALE, GIVEN TYLENOL. RECHECKED PAIN ASSESS, 1 OUT OF 10, TYLENOL EFFECTIVE FOR HEADACHE.
[2021-04-05] MEDS: ACETAMINOPHEN 325 MG TABLET PO PRN (10:07)
--- NOTE | 2021-04-05 10:20 | NUR ---
PATIENT NOTICED INCREASE HR 95-144/MIN FLUCTUATE AND IRREGULAR RHYTHM. MD MADE AWARE ABOVE AND RELATED TO ABG/EKEG RESULT. GIVEN NEW ORDER METOPROLOL, BP WAS 136/76, HR-133 TO DECREASED BP-85/52, HR-129, AND BACK TO BP-108/54, HR-117. WILL CONTINUE TO MONITOR CLOSELY.
[2021-04-05] MEDS ORDERED: METOPROLOL TARTRATE 50 MG TABLET PO STA (10:31)
[2021-04-05] MEDS: methylPREDNISolone SOD SUCC 125 MG/2ML VIAL IV SCH ×2 (10:57→16:43)
[2021-04-05 11:02] LABS: ABG BASE EXCESS 6.4 mmol/L; ABG OXYGEN SATURATION 92.2 % (92.0-98.5); ABG PH 7.339 (7.350-7.450); ABG PO2 65.6 mmHg (75.0-100.0); COHb 0.3 % (0.5-1.5); MetHb 0.2 % (0.0-1.5); O2Hb 91.7 % (94.0-97.0); SITE, ABG Right Brachial; VENT MODE, BG nasal cannula
--- NOTE | 2021-04-05 12:08 | NUR ---
pt. is awake and alert placed into biapap with parameters below as order: ipap 15 epap 5 f 10 fio2 30% Addendum: 04/05/21 at 1211 by FAUSTINO LAI RT Amended: Links added.
[2021-04-05] MEDS: IPRATROPIUM NEB FS 0.5 MG/2.5 ML AMPUL.NEB NEB SCH ×2 (13:24→20:28)
--- NOTE | 2021-04-05 15:32 | NUR ---
PATIENT STATED DON'T PERFORM RESUSCITATE, CLARIFIED CODE STATUS WITH SON/ROSEY. RECEIVED NEW ORDER DNR/DNI.
--- NOTE | 2021-04-05 16:09 | NUR ---
PATIENT'S VTE SCORE IS 3 BUT HAS NO CHEM VTE PROPHYLAXIS, MD MADE AWARE.
--- NOTE | 2021-04-05 18:07 | NUR ---
RN CLOSING NOTE PATIENT RESTING IN BED, REMAINS AO X 3-4, DOES NO APPEARS DISTRESS OR DISCOMFORT. SKIN IS WARM TOUCH, KEEP CLEAN/DRY. PATIENT DID NOT WANT BIPAP AND REMOVED AT THIS TIME, RESPIRATORY EVEN AND UNLABORED OXYGEN AT 3LPM VIA NC. KEPT ELEVATED HOB FOR ENSURE AIRWAY AND ASPIRATION PRECAUTION, ALSO LOWEST BED POSITION FOR SAFETY. CALL LIGHT WITHIN REACH, WILL ENDORSE REPLANTING MACHINE CREWMAN.
--- NOTE | 2021-04-05 20:25 | NUR ---
RECEIVED THE PATIENT IN BED GOOD EYE CONTACT SMILING BED ALARM ON N/C ON 3 LITERS SKIN WARM AND DRY ROOM NEAR THE NURSING STATION
[2021-04-05] MEDS: METOPROLOL TARTRATE 25 MG TABLET PO SCH (20:30)
--- NOTE | 2021-04-05 21:39 | NUR ---
AT 20:40 TEXT MD HERMINIA GANDHI AND MADE HIM AWARE THE PATIENT WAS AFIB HEART RATE 90-225 SHE HAD BEEN SINUS RHYTHM TEXT SHOW MESSAGE READ NO NEW ORDERS
[2021-04-06] VITALS: BP 122/73
[2021-04-06] MEDS: CEFTRIAXONE 1 G in IV D5W 50 ML IV SCH (00:38)
[2021-04-06] MEDS: ACETAMINOPHEN 325 MG TABLET PO PRN ×3 (00:44→21:06)
[2021-04-06] MEDS: IPRATROPIUM NEB FS 0.5 MG/2.5 ML AMPUL.NEB NEB SCH ×4 (02:24→20:22)
[2021-04-06 04:00] VITALS: BP 95/48
--- NOTE | 2021-04-06 04:07 | NUR ---
ENDING NOTES ; ENDING NORES ; .SLEPT WELL THIS 12 HOURS >NEEDS ASSIST TO BE REPOSITIONED >COOPERATIVE ABOUT BEING CLEANED AND REPOSITIONED > INCONTINENT UA >02 1 LITER SATS 93 - 95% Addendum: 04/06/21 at 0414 by ESTRELLA PAZ RN SLEPT 10 HOURS THIS 12 HOUR SHIFT COOPERATIVE ABOUT BEING REPOSITIONED AND CLEANED TYLENOL GIVEN FOR GENERALIZED PAIN AND EFFECTIVE 02 SATS 96% 1 LITER
[2021-04-06 04:19] VITALS: BP 95/48
[2021-04-06 05:58] LABS: BASOPHILS % (AUTO) 0.1 % (0.0-2.0); HEMATOCRIT 34 % (33-45); HEMOGLOBIN 11.4 g/dL (11.5-14.8); LYMPHOCYTES # (AUTO) 0.4 /CMM (0.8-4.8); LYMPHOCYTES % (AUTO) 6.2 % (20.0-44.0); MEAN CORPUSCULAR HGB CONC 34 g/dl (31.0-36.0); MEAN CORPUSCULAR VOLUME 93 fL (82-100); MONOCYTES # (AUTO) 0.1 /CMM (0.1-1.30); MONOCYTES % (AUTO) 1.8 % (2.0-12.0); NEUTROPHILS # (AUTO) 5.6 /CMM (1.8-8.9); NEUTROPHILS % (AUTO) 91.9 % (43.0-81.0); PLATELET COUNT (AUTO) 186 /CMM (150-450); RED BLOOD CELL COUNT(AUTO) 3.61 MIL/uL (4.0-5.2); WHITE BLOOD COUNT (AUTO) 6.1 K/uL (4.3-11.0)
[2021-04-06 06:10] LABS: CALCIUM, SERUM 9.3 mg/dL (8.5-10.1); CARBON DIOXIDE 35 mmol/L (21-32); CHLORIDE 93 mmol/L (98-107); GLUCOSE 119 mg/dL (74-106); MAGNESIUM 2.8 mg/dL (1.8-2.4); PHOSPHORUS 6.2 mg/dL (2.5-4.9); POTASSIUM 3.9 mmol/L (3.5-5.1); SODIUM SERUM 133 mmol/L (136-145); UREA NITROGEN, BLOOD 41 mg/dL (7-18)
--- NOTE | 2021-04-06 07:45 | NUR ---
RN OPENING NOTE RECEIVED PATIENT IN BED, SLEEPING, AO X 3-4, ABLE TO RESPONDS ALL STIMULI. DOES NO APPEARS PAIN OR DISTRESS AT THIS TIME. SKIN IS WARM TO TOUCH, KEEP CLEAN/DRY INTACT IV SITE. RESPIRATORY EVEN AND UNLABORED WITH OXYGEN AT 1LPM. NAIL MAKING MACHINE SETTER SHOWS SR 80s THIS MORNING. KEPT ELEVATED HOB FOR ENSURE AIR AND ASPIRATION PRECAUTION, ALSO LOWEST BED POSITION FOR SAFETY. CALL LIGHT WITHIN REACH, WILL CONTINUE TO MONITOR.
[2021-04-06 08:00] VITALS: BP 120/64
[2021-04-06] MEDS: FUROSEMIDE 40 MG/4 ML VIAL IV SCH (08:22)
[2021-04-06] MEDS: PANTOPRAZOLE 40 MG TABLET.DR PO SCH (08:22)
[2021-04-06] MEDS: METOPROLOL TARTRATE 25 MG TABLET PO SCH (08:22)
[2021-04-06] MEDS: methylPREDNISolone SOD SUCC 125 MG/2ML VIAL IV SCH ×2 (08:22→16:19)
[2021-04-06] MEDS: DILTIAZEM HCL CD 240 MG PO SCH (10:00)
--- NOTE | 2021-04-06 10:00 | NUR ---
BP-118/59, P-78. PATIENT GOING SUDDEN DROP BP, WILL HOLD MEDICATION.
[2021-04-06] MEDS: ENSURE ENLIVE CHOC 237 ML CAN PO SCH (15:16)
[2021-04-06 16:00] VITALS: BP 143/81
[2021-04-06] MEDS: MAG HYDROX/AL HYDROX/SIMETH 30 ML UDC PO PRN (16:19)
--- NOTE | 2021-04-06 16:20 | NUR ---
PATIENT C/O GUSSY IN STOMACH, GIVEN MAALOX.
--- NOTE | 2021-04-06 18:08 | NUR ---
RN CLOSING NOTE PATIENT RESTING IN BED, REMAINS AO X 3-4, PATIENT'S DTR IS AT BED SIDE. SKIN IS WARM TOUCH, KEEP CLEAN/DRY. RESPIRATORY EVEN AND UNLABORED OXYGEN AT 1LPM VIA NC O2SAT 96%. KEPT ELEVATED HOB FOR ENSURE AIRWAY AND ASPIRATION PRECAUTION, ALSO LOWEST BED POSITION FOR SAFETY. CALL LIGHT WITHIN REACH, WILL ENDORSE TELEVISION REPORTER.
[2021-04-06] MEDS: ASPIRIN/ACETAMINOPHEN/CAFFEINE 1 EACH TABLET PO PRN (18:25)
[2021-04-06] MEDS ORDERED: BISACODYL SUPP (10 MG) 10 MG/SUPP.RECT SUPP.RECT RC PRN (18:30)
--- NOTE | 2021-04-06 18:30 | NUR ---
PATIENT C/O HEADACHE SCALE IN 04/15, GIVEN EXCEDRIN.
--- NOTE | 2021-04-06 19:15 | NUR ---
MS RN OPENING NOTES: RECEIVED PATIENT IN BED, AWAKE, A/O X3. NO S/S OF DISTRESS NOTED. CALL LIGHT WITHIN REACH. BED ALARM ON. BED IN LOWEST AND LOCKED POSITION. HOB ELEVATED AT 35 DEGREES. HEELS OFFLOADED.WITH O2 AT 1L/MIN. NASAL CANNULA. TRIED ON ROOM AIR,BUT PT DESATING TO 87%, PUT BACKED ON OXYGEN.
[2021-04-06 20:19] VITALS: BP 121/63
[2021-04-06] MEDS: ATORVASTATIN 10 MG TABLET PO SCH (21:05)
[2021-04-06] MEDS: AMLODIPINE BESYLATE 5 MG TABLET PO SCH (21:06)
[2021-04-07] MEDS: CEFTRIAXONE 1 G in IV D5W 50 ML IV SCH (00:22)
[2021-04-07] MEDS: IPRATROPIUM NEB FS 0.5 MG/2.5 ML AMPUL.NEB NEB SCH ×4 (02:03→19:45)
[2021-04-07 05:59] LABS: HEMATOCRIT 30 % (33-45); HEMOGLOBIN 10.5 g/dL (11.5-14.8); LYMPHOCYTES # (AUTO) 0.5 /CMM (0.8-4.8); LYMPHOCYTES % (AUTO) 7.4 % (20.0-44.0); MEAN CORPUSCULAR HGB CONC 35 g/dl (31.0-36.0); MEAN CORPUSCULAR VOLUME 92 fL (82-100); MONOCYTES # (AUTO) 0.3 /CMM (0.1-1.30); MONOCYTES % (AUTO) 5.2 % (2.0-12.0); NEUTROPHILS # (AUTO) 5.8 /CMM (1.8-8.9); NEUTROPHILS % (AUTO) 87.4 % (43.0-81.0); PLATELET COUNT (AUTO) 206 /CMM (150-450); RED BLOOD CELL COUNT(AUTO) 3.28 MIL/uL (4.0-5.2); WHITE BLOOD COUNT (AUTO) 6.6 K/uL (4.3-11.0)
[2021-04-07] MEDS: ASPIRIN/ACETAMINOPHEN/CAFFEINE 1 EACH TABLET PO PRN ×2 (06:02→09:44)
[2021-04-07 06:22] LABS: ALANINE AMINOTRANSFERASE 12 U/L (12-78); ALKALINE PHOSPHATASE 50 U/L (46-116); ASPARTATE AMINOTRANSFERASE 20 U/L (15-37); BILIRUBIN,TOTAL 0.2 mg/dL (0.2-1.0); CALCIUM, SERUM 8.9 mg/dL (8.5-10.1); CARBON DIOXIDE 33 mmol/L (21-32); CHLORIDE 92 mmol/L (98-107); CREATININE 1.7 mg/dL (0.6-1.3); GLUCOSE 142 mg/dL (74-106); MAGNESIUM 2.8 mg/dL (1.8-2.4); NT-PRO BNP 19531 pg/mL (0-125); PHOSPHORUS 3.5 mg/dL (2.5-4.9); POTASSIUM 3.7 mmol/L (3.5-5.1); SODIUM SERUM 131 mmol/L (136-145); TOTAL PROTEIN, SERUM 6.3 g/dL (6.4-8.2); UREA NITROGEN, BLOOD 48 mg/dL (7-18)
[2021-04-07] MEDS: DOCUSATE SODIUM 100 MG CAPSULE PO SCH ×2 (08:27→16:56)
[2021-04-07] MEDS: ASPIRIN 81 MG TAB.CHEW PO SCH (08:27)
[2021-04-07] MEDS: AMLODIPINE BESYLATE 5 MG TABLET PO SCH (08:28)
[2021-04-07] MEDS: PANTOPRAZOLE 40 MG TABLET.DR PO SCH (08:28)
[2021-04-07] MEDS: CLOPIDOGREL BISULFATE 75 MG TABLET PO SCH (08:28)
[2021-04-07] MEDS: ALLOPURINOL 100 MG TABLET PO SCH (08:28)
[2021-04-07] MEDS: DILTIAZEM HCL CD 240 MG PO SCH (08:28)
[2021-04-07] MEDS: methylPREDNISolone SOD SUCC 125 MG/2ML VIAL IV SCH ×2 (08:29→16:56)
[2021-04-07] MEDS: ENSURE ENLIVE CHOC 237 ML CAN PO SCH (08:29)
[2021-04-07] MEDS: cetrizine 10 MG TABLET PO SCH (08:29)
[2021-04-07] MEDS ORDERED: ALPRAZOLAM 0.25 MG TABLET PO PRN (09:00)
[2021-04-07] MEDS ORDERED: methylPREDNISolone SOD SUCC IV (16:02)
[2021-04-07] MEDS ORDERED: CEPH500C2 PO (16:02)
[2021-04-07] MEDS ORDERED: DILT240C88 PO (16:02)
[2021-04-07] MEDS ORDERED: Aspirin/Acetaminophen/Caffeine PO (16:02)
--- NOTE | 2021-04-07 18:39 | NUR ---
MS RN CLOSING NOTES: RECEIVED PATIENT IN BED, AWAKE, A/O X3. NO S/S OF DISTRESS NOTED. CALL LIGHT WITHIN REACH. BED ALARM ON. BED IN LOWEST AND LOCKED POSITION. HOB ELEVATED AT 35 DEGREES. HEELS OFFLOADED.WITH O2 AT 1L/MIN. NASAL CANNULA BUT PT INSISTS ON RA, SATTING 94% ON RA, PLAN FOR POSSIBLE DISCHARGE TOMORROW
--- NOTE | 2021-04-07 19:45 | NUR ---
RN NOTES Received pt. awake in bed, a/ox3, denies pain no SOB, IV line patent, call light within reach, siderailsupx2, will continue to monitor
[2021-04-07 20:00] VITALS: BP_SYST 119; BP_SYST 143; BP_DIAS 65; BP_DIAS 72
[2021-04-07] MEDS: ATORVASTATIN 10 MG TABLET PO SCH (21:21)
[2021-04-08] MEDS: CEFTRIAXONE 1 G in IV D5W 50 ML IV SCH (00:27)
[2021-04-08] MEDS: IPRATROPIUM NEB FS 0.5 MG/2.5 ML AMPUL.NEB NEB SCH ×3 (02:05→13:55)
[2021-04-08] MEDS: ACETAMINOPHEN 325 MG TABLET PO PRN (02:41)
--- NOTE | 2021-04-08 02:46 | NUR ---
RN NOTES COMPLAINED OF HEADACHE-TYLENOL 650MG PO GIVEN
--- NOTE | 2021-04-08 06:45 | NUR ---
RN NOTES AWAKE, DENIES PAIN, NO SOB, MORNING CARE RENDERED, CALL LIGHT WITHIN REACH, [id number], PT. NEEDS ATTENDED
--- NOTE | 2021-04-08 07:19 | NUR ---
MS RN OPENING NOTES: RECEIVED PATIENT IN BED, AWAKE, A/O X3. NO S/S OF DISTRESS NOTED. CALL LIGHT WITHIN REACH. BED ALARM ON. BED IN LOWEST AND LOCKED POSITION. HOB ELEVATED AT 35 DEGREES. HEELS OFFLOADED.WITH O2 AT 1L/MIN. NASAL CANNULA but pt insists to be on room air, satting 97 on RA, discharge planningtoday
[2021-04-08] MEDS: PANTOPRAZOLE 40 MG TABLET.DR PO SCH (07:27)
[2021-04-08] MEDS: ENSURE ENLIVE CHOC 237 ML CAN PO SCH (07:28)
[2021-04-08 08:00] VITALS: BP 125/67
[2021-04-08] MEDS: ASPIRIN 81 MG TAB.CHEW PO SCH (08:25)
[2021-04-08] MEDS: methylPREDNISolone SOD SUCC 125 MG/2ML VIAL IV SCH ×2 (08:26→16:40)
[2021-04-08] MEDS: DILTIAZEM HCL CD 240 MG PO SCH (08:26)
[2021-04-08] MEDS: cetrizine 10 MG TABLET PO SCH (08:26)
[2021-04-08] MEDS: CLOPIDOGREL BISULFATE 75 MG TABLET PO SCH (08:26)
[2021-04-08] MEDS: ALLOPURINOL 100 MG TABLET PO SCH (08:26)
[2021-04-08] MEDS: DOCUSATE SODIUM 100 MG CAPSULE PO SCH ×2 (08:26→16:40)
[2021-04-08] MEDS: ASPIRIN/ACETAMINOPHEN/CAFFEINE 1 EACH TABLET PO PRN (09:35)
[2021-04-08 16:00] VITALS: BP 134/77
[2021-04-08] MEDS: MAG HYDROX/AL HYDROX/SIMETH 30 ML UDC PO PRN (18:36)
--- NOTE | 2021-04-08 19:45 | NUR ---
RN NOTES Received pt. awake on bed, a/ox3, waiting to for the ambulance, denies pain, no SOB, call light within reach, siderailsupx2, continue to monitor
--- NOTE | 2021-04-08 20:05 | NUR ---
RN NOTES Patient was so anxious heart rates is going up- Xanax0.25mg po given as ordered, V/S stable
--- NOTE | 2021-04-08 20:35 | NUR ---
RN NOTES Patient left via ambulance, in stable condition, discharge instructions was explained, pt, understood . Patient will be transferred to ARU
== END 2021-04-08 20:50 | DRG 291 ==
LOC: ER 22:53 → TELE 04-05 01:44 → MED 04-06 10:05
PROVIDERS: ADMIT Nurse Practitioner Acute Care; ATTEND Hospitalist
DX: I13.0 Hypertensive heart and chronic kidney disease with heart failure and stage 1 through stage 4 chronic kidney disease, or unspecified chronic kidney disease (principal); N17.0 Acute kidney failure with tubular necrosis; I50.33 Acute on chronic diastolic (congestive) heart failure; J96.21 Acute and chronic respiratory failure with hypoxia; J96.22 Acute and chronic respiratory failure with hypercapnia; G93.41 Metabolic encephalopathy; E44.0 Moderate protein-calorie malnutrition; D68.59 Other primary thrombophilia; N39.0 Urinary tract infection, site not specified; E87.3 Alkalosis; E87.1 Hypo-osmolality and hyponatremia; N18.4 Chronic kidney disease, stage 4 (severe); I42.2 Other hypertrophic cardiomyopathy; Z20.822 Contact with and (suspected) exposure to COVID-19; Z95.0 Presence of cardiac pacemaker; J44.9 Chronic obstructive pulmonary disease, unspecified; Z90.710 Acquired absence of both cervix and uterus; Z85.41 Personal history of malignant neoplasm of cervix uteri; Z87.891 Personal history of nicotine dependence; E03.9 Hypothyroidism, unspecified; M19.90 Unspecified osteoarthritis, unspecified site; Z88.5 Allergy status to narcotic agent; Z88.8 Allergy status to other drugs, medicaments and biological substances; Z91.040 Latex allergy status; Z91.011 Allergy to milk products; Z79.02 Long term (current) use of antithrombotics/antiplatelets; Z79.82 Long term (current) use of aspirin; Z79.899 Other long term (current) drug therapy; I70.0 Atherosclerosis of aorta; I25.10 Atherosclerotic heart disease of native coronary artery without angina pectoris; E78.5 Hyperlipidemia, unspecified; E86.1 Hypovolemia; E87.6 Hypokalemia; F41.9 Anxiety disorder, unspecified; F32.9 Major depressive disorder, single episode, unspecified; G47.00 Insomnia, unspecified; T50.2X5A Adverse effect of carbonic-anhydrase inhibitors, benzothiadiazides and other diuretics, initial encounter; Y92.9 Unspecified place or not applicable; I34.0 Nonrheumatic mitral (valve) insufficiency; B96.20 Unspecified Escherichia coli [E. coli] as the cause of diseases classified elsewhere
CPT/HCPCS: 36415; 36600; 71045-TC; 80048-TC; 80053-TC; 80076-TC; 81001; 82803-TC; 83735-TC; 83880; 84100-TC; 84484-TC; 85025-TC; 85730-TC; 87081-TC; 87086-TC; 87186-TC; 94799-TC; 97116-TC; 97530-TC; C9803; G0378; J0696; J1940; J2405; J2930; J3490; J7050; J7060

== ENCOUNTER 2021-04-16 11:45 | Inpatient (IN) | payer MEDICARE, BC ==
[~2021-04-16] VITALS: Ht 165.1 cm; Wt 59.0 kg
[~2021-04-16 11:45] MED LIST changes: -AMLO-212 PO; +Aspirin/Acetaminophen/Caffeine PO; +CEPH500C2 PO; +DILT240C88 PO; -FURO-145 PO; -TRAM50TA2 PO; +methylPREDNISolone SOD SUCC IV
--- NOTE | 2021-04-16 12:00 | NUR ---
THE PATIENT IS BIBRA99 FRM HOME FOR NOTED SOB/WHEEZING X TODAY. D/C [facility]M SN[facility] YESTERDAY ALBUTEROL GIVEN FOUNDATION ASSISTANT. THE PATIENT DENIES PAIN. ATTACHED TO THE MONITOR. WARM BLANKET PROVIDED FOR COMFORT. WILL CONTINUE TO MONITOR THE PATIENT.
[2021-04-16] MEDS ORDERED: METO100T14 PO (12:07)
[2021-04-16 12:21] LABS: BASOPHILS # (AUTO) 0.1 /CMM (0.0-0.2); BASOPHILS % (AUTO) 0.5 % (0.0-2.0); EOSINOPHILS % (AUTO) 0.5 % (0.0-6.0); HEMATOCRIT 36 % (33-45); HEMOGLOBIN 11.7 g/dL (11.5-14.8); LYMPHOCYTES # (AUTO) 0.5 /CMM (0.8-4.8); LYMPHOCYTES % (AUTO) 2.7 % (20.0-44.0); MEAN CORPUSCULAR HGB CONC 33 g/dl (31.0-36.0); MEAN CORPUSCULAR VOLUME 95 fL (82-100); MONOCYTES # (AUTO) 0.3 /CMM (0.1-1.30); NEUTROPHILS # (AUTO) 16.3 /CMM (1.8-8.9); NEUTROPHILS % (AUTO) 94.3 % (43.0-81.0); PLATELET COUNT (AUTO) 235 /CMM (150-450); RED BLOOD CELL COUNT(AUTO) 3.75 MIL/uL (4.0-5.2); WHITE BLOOD COUNT (AUTO) 17.2 K/uL (4.3-11.0)
[2021-04-16] MEDS ORDERED: IPRATROPIUM NEB FS 0.5 MG/2.5 ML AMPUL.NEB NEB ONE (12:30)
[2021-04-16] MEDS ORDERED: ALBUTEROL FS 2.5 MG/3 ML VIAL.NEB CONTNEB ONE (12:30)
[2021-04-16 12:34] LABS: CALCIUM, SERUM 8.8 mg/dL (8.5-10.1); CARBON DIOXIDE 35 mmol/L (21-32); CHLORIDE 98 mmol/L (98-107); CREATININE 1.4 mg/dL (0.6-1.3); GLUCOSE 158 mg/dL (74-106); POTASSIUM 5.5 mmol/L (3.5-5.1); SODIUM SERUM 135 mmol/L (136-145); UREA NITROGEN, BLOOD 21 mg/dL (7-18)
[2021-04-16 12:40] LABS: ALANINE AMINOTRANSFERASE 17 U/L (12-78); ALBUMIN 3.1 g/dL (3.4-5.0); ALKALINE PHOSPHATASE 79 U/L (46-116); ASPARTATE AMINOTRANSFERASE 19 U/L (15-37); BILIRUBIN,TOTAL 0.4 mg/dL (0.2-1.0); TOTAL PROTEIN, SERUM 7.1 g/dL (6.4-8.2)
[2021-04-16] MEDS ORDERED: ALBUTEROL FS 2.5 MG/3 ML VIAL.NEB ONE (12:53)
[2021-04-16] MEDS ORDERED: IPRATROPIUM NEB FS 0.5 MG/2.5 ML AMPUL.NEB ONE (12:54)
[2021-04-16] MEDS ORDERED: AZITHROMYCIN 500 MG in IV D5W 250 ML IV ONE (13:00)
[2021-04-16] MEDS ORDERED: CEFTRIAXONE 1GM BAG (ER ONLY) 50 ML IV ONE ×2 (13:00→13:39)
--- NOTE | 2021-04-16 13:36 | NUR ---
BED 108
--- NOTE | 2021-04-16 14:15 | NUR ---
REPORT GIVEN TO NURSE CLAYTON.
[2021-04-16] MEDS ORDERED: IPRATROPIUM NEB FS 0.5 MG/2.5 ML AMPUL.NEB NEB PRN (14:30)
[2021-04-16] MEDS ORDERED: MORPHINE SULFATE INJ 2 MG/ML DISP.SYRIN IV PRN ×2 (14:30)
[2021-04-16] MEDS ORDERED: Z GUARD REMEDY 2 OZ OINT TP PRN (14:30)
[2021-04-16] MEDS ORDERED: methylPREDNISolone SOD SUCC 125 MG/2ML VIAL IV ONE (14:30)
[2021-04-16] MEDS ORDERED: ALBUTEROL FS 2.5 MG/0.5 ML VIAL.NEB NEB PRN (14:30)
[2021-04-16] MEDS ORDERED: ONDANSETRON HCL/PF 4 MG/2 ML VIAL IVP PRN (14:30)
[2021-04-16] MEDS ORDERED: MAGNESIUM HYDROXIDE 30 ML UDC PO PRN (14:30)
--- NOTE | 2021-04-16 14:47 | NUR ---
RN OPENING NOTE PT AWAKE IN BED. A/O X3 AND [place] SPEAKING. FORGETFUL. NO COMPLAINT OF PAIN OR NAUSEA. CURRENTLY ON 2L O2 NC WITH SOB PRESENT. O2 SAT >95%. ON RUBBER TESTER. NO EDEMA PRESENT. F/C PRESENT. DRAINS WITH CLEAR YELLOW FLUID. PT ON BED REST. FALL RISK. SKIN PROBLEMS PRESENT ON BILATERAL LOWER ARMS. IV PRESENT ON R AC 18G AND FLUSHES WELL. LABS REVIEWED. SAFETY MEASURES IN PLACE. SIDE RAILS RAISED. BED LOWERED. CALL LIGHT WITHIN REACH. WILL CONTINUE TO MONITOR.
--- NOTE | 2021-04-16 14:47 | NUR ---
THE PATIENT IS TRANSFERED TO ROOM 108 IN STABLE CONDITION AND PER ACLS PROTOCOL.
[2021-04-16] MEDS: FUROSEMIDE 40 MG/4 ML VIAL IV SCH (15:03)
[2021-04-16] MEDS: ENOXAPARIN SODIUM 30 MG/0.3 ML DISP.SYRIN SQ SCH (15:10)
[2021-04-16] MEDS ORDERED: INSULIN REGULAR, HUMAN 100 UNIT/ML 10 ML VIAL IV ONE (15:30)
[2021-04-16] MEDS ORDERED: DEXTROSE 50%-WATER 50 ML DISP.SYRIN IVP ONE (15:30)
[2021-04-16] MEDS ORDERED: BISACODYL SUPP (10 MG) 10 MG/SUPP.RECT SUPP.RECT RC PRN (15:30)
[2021-04-16] MEDS ORDERED: INSULIN REGULAR, HUMAN 100 UNIT/ML 3 ML VIAL IV ONE (16:00)
[2021-04-16] MEDS: DOCUSATE SODIUM 100 MG CAPSULE PO SCH (17:07)
[2021-04-16] MEDS: ALPRAZOLAM 0.25 MG TABLET PO SCH (17:07)
[2021-04-16 18:37] VITALS: BP 134/55
--- NOTE | 2021-04-16 18:47 | NUR ---
RN CLOSING NOTE PT SLEEPING IN BED. AROUSES TO LIGHT TOUCH. A/O X3 AND [place] SPEAKING. FORGETFUL. NO COMPLAINT OF PAIN OR NAUSEA. CURRENTLY ON 2L O2 NC WITH SOB PRESENT. O2 SAT >95%. ON WILDLIFE ECOLOGIST. NO EDEMA PRESENT. F/C PRESENT. DRAINS WITH CLEAR YELLOW FLUID. PT ON BED REST. FALL RISK. SKIN PROBLEMS PRESENT ON BILATERAL LOWER ARMS. IV PRESENT ON R AC 18G AND FLUSHES WELL. ROUTINE MEDS GIVEN. LABS REVIEWED. SAFETY MEASURES IN PLACE. SIDE RAILS RAISED. BED LOWERED. CALL LIGHT WITHIN REACH. REPORT TO BE GIVEN TO NIGHT NURSE FOR RENAE.
--- NOTE | 2021-04-16 19:40 | NUR ---
RN NOTE REC'D PT IN BED, RESTING, AWAKENS EASILY. A/O X3 PT IS FORGETFUL AT TIME. PT IS ON 2L OF OXYGEN VIA NASAL CANNULA NO RESP DISTRESS, NO SOB NOTED. PT ON TELE MONITORING. PRESENTS WITH NSR, HEART RATE OF 93. BASELINE TO PT. HX OF PACEMAKER. PT IV SITE FLUSHED, RAC#18 SL, INTACT PATENT. CHAVEZ CATH PRESENT DRAINING VIA GRAVITY. ALL NEEDS ATTENDED. PT DENIES PAIN AT THIS TIME. ALL SAFETY MEASURES IN PLACE. HOB ELEVATED. SIDE RAILS UP X2 BED LOCKED IN LOWEST POSITION WITH BED ALARM ON. CALL LIGHT WITHIN REACH. WILL CONT TO MONITOR CLOSELY.
[2021-04-16 20:00] VITALS: BP 91/50
[2021-04-16] MEDS: ACETAMINOPHEN 325 MG TABLET PO PRN (21:47)
--- NOTE | 2021-04-16 21:47 | NUR ---
RN NOTE PT C/O PAIN GENERALIZED PAIN, REQUESTS MEDICATION. TYLENOL PRN ADMINISTERED. WILL CONT TO MONITOR CLOSELY.
[2021-04-16] MEDS: ATORVASTATIN 10 MG TABLET PO SCH (22:43)
[2021-04-16] MEDS: methylPREDNISolone SOD SUCC 40 MG/ML VIAL IV SCH (22:43)
[2021-04-17] VITALS: BP 111/53
--- NOTE | 2021-04-17 01:47 | NUR ---
RN NOTE PT IS AWAKE, SEEKING NOURISHMENT. INDEPENDENT. CONFIRMED WITH PT THAT SHE WISHES TO BE A DO NOT RESUSCITATE. PT WISHES TO BE DNR.
[2021-04-17] MEDS: ACETAMINOPHEN 325 MG TABLET PO PRN ×2 (03:50→09:48)
--- NOTE | 2021-04-17 03:50 | NUR ---
RN NOTE CHAVEZ CATH NOTED TO HAVE COME OUT, NEW CHAVEZ INSERTED. STERILE TECHNIQUE USED.
[2021-04-17 04:00] VITALS: BP 145/73
[2021-04-17] MEDS: methylPREDNISolone SOD SUCC 40 MG/ML VIAL IV SCH ×3 (05:04→21:41)
--- NOTE | 2021-04-17 06:06 | NUR ---
RN NOTE URINE COLLECTED, NOTIFIED LAB READY FOR PROFESSOR OF KINESIOLOGY
[2021-04-17 06:10] LABS: BASOPHILS % (AUTO) 0.1 % (0.0-2.0); HEMATOCRIT 30 % (33-45); HEMOGLOBIN 10.4 g/dL (11.5-14.8); LYMPHOCYTES # (AUTO) 0.4 /CMM (0.8-4.8); LYMPHOCYTES % (AUTO) 5.3 % (20.0-44.0); MEAN CORPUSCULAR HGB CONC 34 g/dl (31.0-36.0); MEAN CORPUSCULAR VOLUME 93 fL (82-100); MONOCYTES # (AUTO) 0.1 /CMM (0.1-1.30); MONOCYTES % (AUTO) 0.8 % (2.0-12.0); NEUTROPHILS % (AUTO) 93.8 % (43.0-81.0); PLATELET COUNT (AUTO) 202 /CMM (150-450); RED BLOOD CELL COUNT(AUTO) 3.27 MIL/uL (4.0-5.2); WHITE BLOOD COUNT (AUTO) 8.5 K/uL (4.3-11.0)
--- NOTE | 2021-04-17 06:35 | NUR ---
RN CLOSING NOTES NO SIGNIFICANT CHANGES IN PT CONDITION, AT THIS TIME IS RESTING IN BED. BED BATH DONE, 1 BM NOTED. ALL NEEDS ATTENDED. PT REMAINS ON 2L OF O2 VIA NASAL CANNULA. NO SOB NO RESP DISTRESS NOTED. PT DENIES PAIN AT THIS TIME. SAFETY MEASURES IN PLACE HOB ELEVATED SIDE RAILS UP X2 BED LOCKED IN LOWEST POSITION WITH BED ALARM CARNALLITE PLANT OPERATOR LIGHT WITHIN REACH WILL ENDORSE TO DAY SHIFT NURSE FOR CONTINUATION OF CARE.
[2021-04-17 07:04] LABS: ALANINE AMINOTRANSFERASE 14 U/L (12-78); ALBUMIN 2.8 g/dL (3.4-5.0); ALKALINE PHOSPHATASE 61 U/L (46-116); ASPARTATE AMINOTRANSFERASE 18 U/L (15-37); BILIRUBIN,TOTAL 0.3 mg/dL (0.2-1.0); CARBON DIOXIDE 31 mmol/L (21-32); CHLORIDE 97 mmol/L (98-107); CREATININE 1.6 mg/dL (0.6-1.3); GLUCOSE 152 mg/dL (74-106); MAGNESIUM 2.1 mg/dL (1.8-2.4); POTASSIUM 4.5 mmol/L (3.5-5.1); SODIUM SERUM 136 mmol/L (136-145); TOTAL PROTEIN, SERUM 6.3 g/dL (6.4-8.2); UREA NITROGEN, BLOOD 25 mg/dL (7-18)
[2021-04-17 07:16] LABS: CREATININE, URINE 48.4 MG/DL (30.0-125.0)
--- NOTE | 2021-04-17 07:25 | NUR ---
RN OPENING NOTES NO SIGNIFICANT CHANGES IN PT CONDITION, AT THIS TIME IS RESTING IN BED. ALL NEEDS MET. PT REMAINS ON 2L OF O2 VIA NASAL CANNULA. NO SOB NO RESP DISTRESS NOTED. PT DENIES PAIN AT THIS TIME. SAFETY MEASURES IN PLACE HOB ELEVATED SIDE RAILS UP X2 BED LOCKED IN LOWEST POSITION WITH BED ALARM LITHOPRESS OPERATOR LIGHT WITHIN REACH AND ANSWERED PROMPTLY.
[2021-04-17 07:27] LABS: BILIRUBIN,URINE NEGATIVE (NEGATIVE); COLOR,URINE YELLOW (YELLOW); LEUKOCYTE ESTERASE ,URINE NEGATIVE (NEGATIVE); NITRITE, URINE NEGATIVE (NEGATIVE); PROTEIN,URINE NEGATIVE (NEGATIVE); UGLUCOSE NEGATIVE (NEGATIVE); UROBILINOGEN,URINE 0.2 EU/dL (0.2)
[2021-04-17 08:00] VITALS: BP 144/77
[2021-04-17] MEDS: DOCUSATE SODIUM 100 MG CAPSULE PO SCH ×2 (08:12→16:27)
[2021-04-17] MEDS: LEVOTHYROXINE SODIUM 112 MCG TABLET PO SCH (08:13)
[2021-04-17] MEDS: CHOLECALCIFEROL 1,000 UNIT TABLET (VIT D3) PO SCH (08:13)
[2021-04-17] MEDS: ALLOPURINOL 100 MG TABLET PO SCH (08:13)
[2021-04-17] MEDS: ASPIRIN 81 MG TAB.CHEW PO SCH (08:13)
[2021-04-17] MEDS: CYANOCOBALAMIN 500 MCG TABLET PO SCH (08:13)
[2021-04-17] MEDS: CLOPIDOGREL BISULFATE 75 MG TABLET PO SCH (08:13)
[2021-04-17] MEDS: FUROSEMIDE 40 MG/4 ML VIAL IV SCH (08:14)
[2021-04-17] MEDS: ALPRAZOLAM 0.25 MG TABLET PO SCH ×2 (08:14→16:27)
[2021-04-17] MEDS: cetrizine 10 MG TABLET PO SCH (08:27)
[2021-04-17] MEDS: MAG HYDROX/AL HYDROX/SIMETH 30 ML UDC PO PRN (08:27)
[2021-04-17] MEDS: PANTOPRAZOLE 40 MG TABLET.DR PO SCH (08:28)
[2021-04-17] MEDS ORDERED: PANTOPRAZOLE 40 MG VIAL IV SCH (09:00)
[2021-04-17] MEDS ORDERED: MENTHOL/CETYLPYRD (CEPACOL) 1 LOZ LOZENGE PO PRN (10:30)
[2021-04-17] MEDS: IPRATROPIUM NEB FS 0.5 MG/2.5 ML AMPUL.NEB NEB SCH ×4 (11:53→23:30)
[2021-04-17 12:21] LABS: ABG BASE EXCESS 12.2 mmol/L; ABG OXYGEN SATURATION 97.2 % (92.0-98.5); ABG PCO2 44.9 mmHg (35.0-45.0); ABG PH 7.525 (7.350-7.450); ABG PO2 81.1 mmHg (75.0-100.0); AaDO2 51.1 mmHg; COHb 0.5 % (0.5-1.5); O2Hb 96.7 % (94.0-97.0); SITE, ABG Left Brachial; VENT MODE, BG NC 1.5
[2021-04-17] MEDS: CEFTRIAXONE 1 G in IV D5W 50 ML IV SCH (13:11)
[2021-04-17] MEDS: AZITHROMYCIN 500 MG in IV D5W 250 ML IV SCH (14:07)
[2021-04-17 16:00] VITALS: BP 149/78
--- NOTE | 2021-04-17 18:10 | NUR ---
RN Closing NOTES NO SIGNIFICANT CHANGES IN PT CONDITION, AT THIS TIME IS RESTING IN BED. ALL NEEDS MET. PT REMAINS ON 1.5L OF O2 VIA NASAL CANNULA. NO SOB NO RESP DISTRESS NOTED. PT DENIES PAIN AT THIS TIME. SAFETY MEASURES IN PLACE HOB ELEVATED SIDE RAILS UP X2 BED LOCKED IN LOWEST POSITION WITH BED ALARM SOLAR CONSULTANT LIGHT WITHIN REACH AND ANSWERED PROMPTLY.
[2021-04-17 20:00] VITALS: BP 148/77
[2021-04-17] MEDS: ENOXAPARIN SODIUM 30 MG/0.3 ML DISP.SYRIN SQ SCH (21:41)
[2021-04-17] MEDS: ATORVASTATIN 10 MG TABLET PO SCH (21:41)
[2021-04-18] MEDS: ACETAMINOPHEN 325 MG TABLET PO PRN ×3 (01:51→19:45)
[2021-04-18] MEDS: IPRATROPIUM NEB FS 0.5 MG/2.5 ML AMPUL.NEB NEB SCH ×6 (03:37→23:46)
[2021-04-18] MEDS: methylPREDNISolone SOD SUCC 40 MG/ML VIAL IV SCH ×3 (04:36→21:30)
[2021-04-18 06:14] LABS: HEMATOCRIT 29 % (33-45); HEMOGLOBIN 10.1 g/dL (11.5-14.8); LYMPHOCYTES # (AUTO) 0.4 /CMM (0.8-4.8); LYMPHOCYTES % (AUTO) 4.6 % (20.0-44.0); MEAN CORPUSCULAR HGB CONC 34 g/dl (31.0-36.0); MEAN CORPUSCULAR VOLUME 93 fL (82-100); MONOCYTES # (AUTO) 0.2 /CMM (0.1-1.30); MONOCYTES % (AUTO) 2.3 % (2.0-12.0); NEUTROPHILS # (AUTO) 8.5 /CMM (1.8-8.9); NEUTROPHILS % (AUTO) 93.1 % (43.0-81.0); PLATELET COUNT (AUTO) 203 /CMM (150-450); RED BLOOD CELL COUNT(AUTO) 3.16 MIL/uL (4.0-5.2); WHITE BLOOD COUNT (AUTO) 9.1 K/uL (4.3-11.0)
--- NOTE | 2021-04-18 06:18 | NUR ---
MS RN CLOSING NOTES: PATIENT IS RESTING IN BED, AWAKE, A/O X3-4. NO S/S OF DISTRESS NOTED. CALL LIGHT WITHIN REACH. BED ALARM ON. BED IN LOWEST AND LOCKED POSITION. PATIENT REFUSED TO BE TURNED AND REPOSITIONED LAST NIGH ACCORDING TO THE MACHINE PECAN GATHERER ROHITH. THIS AM, ISA-CARE DONE AND LINEN CHANGED. TURNED AND REPOSITIONED. HEELS OFFLOADED. PATIENT IS CALM,COOPERATIVE AND VERY APPRECIATIVE.
[2021-04-18 06:31] LABS: CALCIUM, SERUM 8.9 mg/dL (8.5-10.1); CARBON DIOXIDE 35 mmol/L (21-32); CHLORIDE 95 mmol/L (98-107); CREATININE 2.1 mg/dL (0.6-1.3); GLUCOSE 176 mg/dL (74-106); POTASSIUM 4.1 mmol/L (3.5-5.1); SODIUM SERUM 136 mmol/L (136-145); UREA NITROGEN, BLOOD 32 mg/dL (7-18)
[2021-04-18] MEDS: PANTOPRAZOLE 40 MG TABLET.DR PO SCH (07:30)
[2021-04-18] MEDS: LEVOTHYROXINE SODIUM 112 MCG TABLET PO SCH (07:30)
[2021-04-18 08:00] VITALS: BP 160/79
[2021-04-18] MEDS: CYANOCOBALAMIN 500 MCG TABLET PO SCH (09:00)
[2021-04-18] MEDS: CHOLECALCIFEROL 1,000 UNIT TABLET (VIT D3) PO SCH (09:00)
[2021-04-18] MEDS: ALLOPURINOL 100 MG TABLET PO SCH (09:00)
[2021-04-18] MEDS: CLOPIDOGREL BISULFATE 75 MG TABLET PO SCH (09:00)
[2021-04-18] MEDS: cetrizine 10 MG TABLET PO SCH (09:00)
[2021-04-18] MEDS: DOCUSATE SODIUM 100 MG CAPSULE PO SCH ×2 (09:00→17:29)
[2021-04-18] MEDS: ASPIRIN 81 MG TAB.CHEW PO SCH (09:00)
--- NOTE | 2021-04-18 11:15 | NUR ---
alert, oriented, and clear mind. Asked again whether she consents to DNR status, signed paper and SCRAPER OPERATOR saw the patient, with POL signed at the bedside Plan : PT eval, and acute rehab at [facility] arrangement Patient aware
[2021-04-18] MEDS: ALPRAZOLAM 0.25 MG TABLET PO PRN (11:41)
[2021-04-18] MEDS: CEFTRIAXONE 1 G in IV D5W 50 ML IV SCH (13:14)
[2021-04-18] MEDS: MAG HYDROX/AL HYDROX/SIMETH 30 ML UDC PO PRN ×2 (13:35→23:59)
[2021-04-18] MEDS: AZITHROMYCIN 500 MG in IV D5W 250 ML IV SCH (13:36)
--- NOTE | 2021-04-18 13:40 | NUR ---
claimed she has had "fibromyalgia" , starts acting up. Requested tylenol, and xanax, given .
[2021-04-18 16:00] VITALS: BP 123/67
--- NOTE | 2021-04-18 17:24 | NUR ---
excited when PLASTER MOLD MAKERRosie talked to her about the possiblity of going to [facility], now angry because she heard different story from her own children. admantly asked to see the note written by CM, given to her per her request.
--- NOTE | 2021-04-18 19:15 | NUR ---
RN NOTE REC'D PT IN BED, AWAKE. PT IS A/O X3 PT IS FORGETFUL AT TIME. PT IS ON 2L OF OXYGEN VIA NASAL CANNULA NO RESP DISTRESS, NO SOB NOTED. PT ON MED SURG MONITORING. HX OF PACEMAKER. PT IV SITE FLUSHED, LEFT HAND #22, INTACT PATENT. CHAVEZ CATH PRESENT DRAINING VIA GRAVITY. ALL NEEDS ATTENDED. ALL SAFETY MEASURES IN PLACE. HOB ELEVATED. SIDE RAILS UP X2 BED LOCKED IN LOWEST POSITION WITH BED ALARM ON. CALL LIGHT WITHIN REACH. WILL CONT TO MONITOR CLOSELY.
--- NOTE | 2021-04-18 19:50 | NUR ---
RN NOTE PAIN PT C/O OF GENERALIZED PAIN REQUEST TYLENOL. ADMINISTERED PRN ORDERED. WILL CONT TO MONITOR
[2021-04-18 20:00] VITALS: BP 152/76
[2021-04-18] MEDS: ATORVASTATIN 10 MG TABLET PO SCH (21:30)
[2021-04-18] MEDS: ENOXAPARIN SODIUM 30 MG/0.3 ML DISP.SYRIN SQ SCH (21:31)
[2021-04-19] MEDS: ACETAMINOPHEN 325 MG TABLET PO PRN ×3 (03:11→21:02)
[2021-04-19] MEDS: IPRATROPIUM NEB FS 0.5 MG/2.5 ML AMPUL.NEB NEB SCH ×5 (03:14→19:52)
[2021-04-19 05:56] LABS: BASOPHILS % (AUTO) 0.1 % (0.0-2.0); HEMATOCRIT 30 % (33-45); HEMOGLOBIN 10.1 g/dL (11.5-14.8); LYMPHOCYTES # (AUTO) 0.4 /CMM (0.8-4.8); LYMPHOCYTES % (AUTO) 4.4 % (20.0-44.0); MEAN CORPUSCULAR HGB CONC 34 g/dl (31.0-36.0); MEAN CORPUSCULAR VOLUME 92 fL (82-100); MONOCYTES # (AUTO) 0.3 /CMM (0.1-1.30); MONOCYTES % (AUTO) 3.3 % (2.0-12.0); NEUTROPHILS # (AUTO) 8.8 /CMM (1.8-8.9); NEUTROPHILS % (AUTO) 92.2 % (43.0-81.0); PLATELET COUNT (AUTO) 213 /CMM (150-450); RED BLOOD CELL COUNT(AUTO) 3.21 MIL/uL (4.0-5.2); WHITE BLOOD COUNT (AUTO) 9.6 K/uL (4.3-11.0)
[2021-04-19] MEDS: ALPRAZOLAM 0.25 MG TABLET PO PRN ×2 (06:29→16:40)
--- NOTE | 2021-04-19 06:30 | NUR ---
RN NOTE PT REQUEST XANAX AT THIS TIME, VERBALIZES ANXIETY PRN ADMINISTERED ORDERED
[2021-04-19 06:48] LABS: CALCIUM, SERUM 8.7 mg/dL (8.5-10.1); CARBON DIOXIDE 34 mmol/L (21-32); CHLORIDE 96 mmol/L (98-107); CREATININE 1.7 mg/dL (0.6-1.3); GLUCOSE 137 mg/dL (74-106); POTASSIUM 4.2 mmol/L (3.5-5.1); SODIUM SERUM 135 mmol/L (136-145); UREA NITROGEN, BLOOD 30 mg/dL (7-18)
--- NOTE | 2021-04-19 06:59 | NUR ---
RN CLOSING NOTE PT STILL REMAINS ON ROOM AIR NO DISTRESS NOTED. ALL NEEDS ATTENDED AT THIS TIME. PT HAD 1 BM. SOFT FORMED. NO SIGNIFICANT CHANGES TO PT CONDITION THROUGHOUT SHIFT. PT AFEBRILE. ALL SAFETY MEASURES IN PLACE. HOB ELEVATED. SIDE RAILS UP X2 BED LOCKED IN LOWEST POSITION WITH BED ALARM ON. CALL LIGHT WITHIN REACH. WILL ENDORSE TO DAY SHIFT FOR CONTINUATION OF CARE.
--- NOTE | 2021-04-19 07:15 | NUR ---
RN OPENING NOTE PATIENT RECEIVED RESTING IN SEMI-FOWLERS POSITION. PATIENT ON ROOM AIR AND NO DISTRESS NOTED. LEFT HAND #20 G PATENT AND INTACT. SAFETY PRECAUTIONS IMPLEMENTED, SIDE RAILS UP X2, BED LOCKED IN LOWEST POSITION, BED ALARM ON, CALL LIGHT WITHIN REACH. WILL CONTINUE TO MONITOR AND PROVIDE CARE THROUGHOUT SHIFT.
[2021-04-19 08:00] VITALS: BP 165/82
[2021-04-19] MEDS: methylPREDNISolone SOD SUCC 40 MG/ML VIAL IV SCH (09:09)
[2021-04-19] MEDS: PANTOPRAZOLE 40 MG TABLET.DR PO SCH (09:09)
[2021-04-19] MEDS: LEVOTHYROXINE SODIUM 112 MCG TABLET PO SCH (09:09)
[2021-04-19] MEDS: CYANOCOBALAMIN 500 MCG TABLET PO SCH (09:13)
[2021-04-19] MEDS: CHOLECALCIFEROL 1,000 UNIT TABLET (VIT D3) PO SCH (09:13)
[2021-04-19] MEDS: ASPIRIN 81 MG TAB.CHEW PO SCH (09:13)
[2021-04-19] MEDS: CLOPIDOGREL BISULFATE 75 MG TABLET PO SCH (09:13)
[2021-04-19] MEDS: ALLOPURINOL 100 MG TABLET PO SCH (09:13)
[2021-04-19] MEDS: DOCUSATE SODIUM 100 MG CAPSULE PO SCH ×2 (09:13→16:41)
[2021-04-19] MEDS: ENSURE ENLIVE CHOC 237 ML CAN PO SCH ×3 (09:30→16:41)
[2021-04-19] MEDS: cetrizine 10 MG TABLET PO SCH (10:00)
[2021-04-19] MEDS: MAG HYDROX/AL HYDROX/SIMETH 30 ML UDC PO PRN (10:58)
[2021-04-19] MEDS: CEFTRIAXONE 1 G in IV D5W 50 ML IV SCH (13:43)
[2021-04-19] MEDS ORDERED: AZITHROMYCIN 250 MG TABLET PO SCH (15:00)
[2021-04-19] MEDS ORDERED: CLONIDINE HCL 0.1 MG TABLET PO ONE (15:30)
[2021-04-19 15:38] VITALS: BP 170/102
--- NOTE | 2021-04-19 18:59 | NUR ---
RN CLOSING NOTE PATIENT RESTING IN SEMI-FOWLERS POSITION. PATIENT ON ROOM AIR AND NO DISTRESS NOTED. DISCHARGE PAPERWORK AND INSTRUCTIONS PROVIDED FOR PATIENT AND SNF. CALLED AND GAVE REPORT [facility]. SAFETY PRECAUTIONS IMPLEMENTED, SIDE RAILS UP X2, BED LOCKED IN LOWEST POSITION, BED ALARM ON, CALL LIGHT WITHIN REACH. WILL ENDORSE CARE TO UPCOMING SHIFT.
--- NOTE | 2021-04-19 19:45 | NUR ---
RN NOTE REC'D PT IN BED, AWAKE. PT IS A/O X3. PT IS ON ROOM AIR, NO RESP DISTRESS, NO SOB NOTED. PT ON MED SURG MONITORING. HX OF PACEMAKER. PT HAS NO IV SITE REMOVED, REFUSES REINSERTION AFTER EXPLAINING RISKS AND BENEFITS X2. INFORMED ANIMAL SCIENCE PROFESSOR DR KIM. PT HAS CHAVEZ CATH PRESENT DRAINING VIA GRAVITY. ALL NEEDS ATTENDED. PT DENIES PAIN. ALL SAFETY MEASURES IN PLACE. HOB ELEVATED. SIDE RAILS UP X2 BED LOCKED IN LOWEST POSITION WITH BED ALARM ON. CALL LIGHT WITHIN REACH. WILL CONT TO MONITOR CLOSELY.
--- NOTE | 2021-04-19 20:31 | NUR ---
MS RN NOTE B/P CAME DOWN WNL INFORMED AMSASHA TO PICKUP THE PT, ACCORDING TO [facility] P[facility] IS AT 10 PM. [facility].
[2021-04-19] MEDS: ATORVASTATIN 10 MG TABLET PO SCH (21:02)
[2021-04-19] MEDS: ENOXAPARIN SODIUM 30 MG/0.3 ML DISP.SYRIN SQ SCH (21:03)
--- NOTE | 2021-04-19 22:35 | NUR ---
RN NOTE PT PICKED UP BY [facility], BY Prakash PRESTON AND BENJAMIN. PT NOT IN DISTRESS, VS STABLE, WNL. PT AWARE OF GOING TO [facility]. ALL BELONGINGS ACCOUNTED FOR AND WITH PT. NOTIFIED PT SON ROSEY AND DAUGHTER RONAN OF PT BEING TRANSPORTED. PT SENT WITH DISCHARGE INSTRUCTIONS. COSMETIC CHEMIST NOTIFIED.
== END 2021-04-19 22:35 | DRG 871 ==
LOC: ER 11:55 → TELE1 13:45 → MEDSG1 04-17 07:56
PROVIDERS: ADMIT Nurse Practitioner Acute Care; ATTEND Nurse Practitioner Acute Care
DX: A41.9 Sepsis, unspecified organism (principal); J96.21 Acute and chronic respiratory failure with hypoxia; I50.33 Acute on chronic diastolic (congestive) heart failure; N17.0 Acute kidney failure with tubular necrosis; J15.9 Unspecified bacterial pneumonia; J96.22 Acute and chronic respiratory failure with hypercapnia; J44.1 Chronic obstructive pulmonary disease with (acute) exacerbation; J44.0 Chronic obstructive pulmonary disease with (acute) lower respiratory infection; I13.0 Hypertensive heart and chronic kidney disease with heart failure and stage 1 through stage 4 chronic kidney disease, or unspecified chronic kidney disease; E87.1 Hypo-osmolality and hyponatremia; D68.59 Other primary thrombophilia; I42.2 Other hypertrophic cardiomyopathy; E87.3 Alkalosis; M19.90 Unspecified osteoarthritis, unspecified site; N18.32 Chronic kidney disease, stage 3b; Z79.82 Long term (current) use of aspirin; Z20.822 Contact with and (suspected) exposure to COVID-19; Z90.710 Acquired absence of both cervix and uterus; Z85.41 Personal history of malignant neoplasm of cervix uteri; E03.9 Hypothyroidism, unspecified; Z88.5 Allergy status to narcotic agent; Z88.8 Allergy status to other drugs, medicaments and biological substances; Z91.040 Latex allergy status; Z91.011 Allergy to milk products; Z79.02 Long term (current) use of antithrombotics/antiplatelets; Z79.899 Other long term (current) drug therapy; I70.0 Atherosclerosis of aorta; I25.10 Atherosclerotic heart disease of native coronary artery without angina pectoris; E87.5 Hyperkalemia; Z95.0 Presence of cardiac pacemaker; F41.9 Anxiety disorder, unspecified; F32.9 Major depressive disorder, single episode, unspecified; Z74.09 Other reduced mobility
CPT/HCPCS: 36415; 36600; 71045-TC; 80048-TC; 80053-TC; 82570-TC; 82803-TC; 82962-TC; 83605-TC; 83735-TC; 84100-TC; 84300-TC; 84484-TC; 85025-TC; 87040-TC; 87081-TC; 94799-TC; 97116-TC; 97530-TC; G0378; J0456; J0696; J1650; J1815; J1940; J2920; J2930; J7050; J7060

== ENCOUNTER 2021-07-07 15:57 | Inpatient (IN) | payer MEDICARE, BC ==
[~2021-07-07] VITALS: Ht 165.1 cm; Wt 58.5 kg
[~2021-07-07 15:57] MED LIST changes: -Aspirin/Acetaminophen/Caffeine PO; -CEPH500C2 PO; -DILT240C88 PO; +METO100T14 PO; -methylPREDNISolone SOD SUCC IV
--- NOTE | 2021-07-07 16:18 | NUR ---
BIB ra c/o aloc x 30 min captain waiter/waitress. pt is hypoxic on room aiR AT 66%. Respiration regular. Denies pain. The patient is alert and oriented x2. Able to follow commands. Attached to the monitor and oxygen. Will continue to monitor the patient.
[2021-07-07] MEDS ORDERED: IV NS 0.9% 250 ML IV ONE (16:25)
[2021-07-07] MEDS ORDERED: IOHEXOL-350 100 ML VIAL IV ONE (16:25)
[2021-07-07 16:33] LABS: BASOPHILS # (AUTO) 0.1 K/uL (0.0-0.2); BASOPHILS % (AUTO) 0.3 % (0.0-2.0); EOSINOPHILS % (AUTO) 0.2 % (0.0-6.0); HEMATOCRIT 33 % (33-45); HEMOGLOBIN 11.1 g/dL (11.5-14.8); LYMPHOCYTES # (AUTO) 0.2 K/uL (0.8-4.8); LYMPHOCYTES % (AUTO) 1.1 % (20.0-44.0); MEAN CORPUSCULAR HGB CONC 34 g/dl (31.0-36.0); MEAN CORPUSCULAR VOLUME 93 fL (82-100); MONOCYTES # (AUTO) 0.4 K/uL (0.1-1.30); MONOCYTES % (AUTO) 2.6 % (2.0-12.0); NEUTROPHILS # (AUTO) 15.4 K/uL (1.8-8.9); NEUTROPHILS % (AUTO) 95.8 % (43.0-81.0); PLATELET COUNT (AUTO) 204 K/uL (150-450); RED BLOOD CELL COUNT(AUTO) 3.53 MIL/uL (4.0-5.2); WHITE BLOOD COUNT (AUTO) 16.1 K/uL (4.3-11.0)
--- NOTE | 2021-07-07 16:35 | NUR ---
RECTAL LANIE 102.5F. DR HERNANDEZ AWARE.
--- NOTE | 2021-07-07 16:40 | NUR ---
SPOKE WITH SON-BUSHRA AND DAUGHTER-DAYANA, LAST KNOW WELL PER DAUGHTER WAS 8HRS AGO AND PATIENT IS ON [place]. PRIMARY RN AND DR. HERNANDEZ AWARE. FAMILY WILL BE HERE IN ABOUT 1HR.
[2021-07-07 16:49] LABS: ALANINE AMINOTRANSFERASE 212 U/L (12-78); ALBUMIN 2.9 g/dL (3.4-5.0); ALKALINE PHOSPHATASE 287 U/L (46-116); ASPARTATE AMINOTRANSFERASE 399 U/L (15-37); BILIRUBIN,TOTAL 2.4 mg/dL (0.2-1.0); CALCIUM, SERUM 8.8 mg/dL (8.5-10.1); CARBON DIOXIDE 39 mmol/L (21-32); CHLORIDE 96 mmol/L (98-107); CREATININE 1.4 mg/dL (0.6-1.3); GLUCOSE 140 mg/dL (74-106); POTASSIUM 4.5 mmol/L (3.5-5.1); SODIUM SERUM 136 mmol/L (136-145); TOTAL PROTEIN, SERUM 6.3 g/dL (6.4-8.2); UREA NITROGEN, BLOOD 14 mg/dL (7-18)
[2021-07-07] MEDS ORDERED: FURO20TA4 PO (16:52)
[2021-07-07] MEDS ORDERED: ATOR10TA PO (16:52)
[2021-07-07 16:57] LABS: THYROID STIMULATING HORMONE 0.238 uIU/mL (0.358-3.74)
[2021-07-07] MEDS ORDERED: PIPERACILLIN /TAZOBACTAM 3.375 G in IV D5W 50 ML IV ONE (17:00)
[2021-07-07] MEDS ORDERED: ACETAMINOPHEN 650 MG/SUPP.RECT RC ONE ×2 (17:00→17:14)
[2021-07-07] MEDS ORDERED: VANCOMYCIN 1 GM in IV D5W 250 ML IV ONE (17:00)
[2021-07-07 17:08] LABS: ABG BASE EXCESS 4.6 mmol/L; ABG OXYGEN SATURATION 96.8 % (92.0-98.5); ABG PCO2 69.3 mmHg (35.0-45.0); ABG PH 7.292 (7.350-7.450); ABG PO2 109.7 mmHg (75.0-100.0); AaDO2 66.6 mmHg; COHb 0.6 % (0.5-1.5); MetHb 0.4 % (0.0-1.5); O2Hb 95.8 % (94.0-97.0); SITE, ABG Left Radial; VENT MODE, BG 4LPM NC
--- NOTE | 2021-07-07 17:44 | NUR ---
PAGED [facility].
[2021-07-07] MEDS ORDERED: ALBUTEROL FS 2.5 MG/3 ML VIAL.NEB ONE (18:23)
[2021-07-07] MEDS ORDERED: IPRATROPIUM NEB FS 0.5 MG/2.5 ML AMPUL.NEB ONE ×2 (18:23→23:25)
[2021-07-07 18:29] LABS: BILIRUBIN,URINE SMALL (NEGATIVE); COLOR,URINE YELLOW (YELLOW); LEUKOCYTE ESTERASE ,URINE MODERATE (NEGATIVE); NITRITE, URINE NEGATIVE (NEGATIVE); PH,URINE 7.5 (5.0-8.0); PROTEIN,URINE TRACE mg/dl (NEGATIVE); UGLUCOSE NEGATIVE (NEGATIVE); UROBILINOGEN,URINE 0.2 EU/dL (0.2)
--- NOTE | 2021-07-07 18:29 | NUR ---
COVID SWAB DONE AND SENT TO THE LAB
[2021-07-07] MEDS ORDERED: ALBUTEROL FS 2.5 MG/3 ML VIAL.NEB NEB ONE (18:30)
[2021-07-07] MEDS ORDERED: IPRATROPIUM NEB FS 0.5 MG/2.5 ML AMPUL.NEB NEB ONE (18:30)
[2021-07-07] MEDS ORDERED: IV NS 0.9% 1,000 ML BAG IV ONE (18:30)
[2021-07-07] MEDS ORDERED: methylPREDNISolone SOD SUCC 125 MG/2ML VIAL IV ONE (18:30)
[2021-07-07] MEDS ORDERED: methylPREDNISolone SOD SUCC 125 MG/2ML VIAL ONE (18:31)
[2021-07-07 18:32] LABS: ABG BASE EXCESS 6.1 mmol/L; ABG OXYGEN SATURATION 90.6 % (92.0-98.5); ABG PCO2 61.7 mmHg (35.0-45.0); ABG PH 7.347 (7.350-7.450); ABG PO2 65.3 mmHg (75.0-100.0); AaDO2 76.1 mmHg; COHb 0.3 % (0.5-1.5); MetHb 0.4 % (0.0-1.5); SITE, ABG Left Radial
[2021-07-07 18:44] LABS: BACTERIA,URINE 3+ /HPF (None Seen); SQUAMOUS EPITHELIAL CELL,UR Few /HPF (None Seen); WBC,URINE TOO NUMEROUS TO COUN /HPF (0-3)
[2021-07-07] MEDS ORDERED: Z GUARD REMEDY 2 OZ OINT TP PRN (19:00)
[2021-07-07] MEDS ORDERED: ACETAMINOPHEN 325 MG TABLET PO PRN (19:00)
[2021-07-07] MEDS ORDERED: ONDANSETRON HCL/PF 4 MG/2 ML VIAL IVP PRN (19:00)
[2021-07-07] MEDS ORDERED: cetrizine 10 MG TABLET PO PRN (19:00)
--- NOTE | 2021-07-07 19:15 | NUR ---
recieved report from REJI Caraballo
[2021-07-07] MEDS: ALBUTEROL FS 2.5 MG/0.5 ML VIAL.NEB NEB SCH ×2 (19:30→23:30)
[2021-07-07 20:14] LABS: CHOLESTEROL 204 mg/dL (<200); HDL CHOLESTEROL 81 mg/dL (40-60); LDL 91 mg/dL (0-99); TRIGLYCERIDES 144 mg/dL (30-150)
[2021-07-07] MEDS ORDERED: CEFEPIME 2 GM in IV D5W 100 ML IV SCH (21:00)
--- NOTE | 2021-07-07 21:00 | NUR ---
PICC LINE NURSE AT BEDSIDE.
[2021-07-07] MEDS ORDERED: ATORVASTATIN 10 MG TABLET PO SCH (22:00)
[2021-07-07] MEDS ORDERED: ENOXAPARIN SODIUM 30 MG/0.3 ML DISP.SYRIN ONE (22:07)
[2021-07-07] MEDS ORDERED: ATORVASTATIN 10 MG TABLET ONE (22:07)
[2021-07-07] MEDS: ENOXAPARIN SODIUM 30 MG/0.3 ML DISP.SYRIN SQ SCH (22:16)
[2021-07-07] MEDS ORDERED: ALBUTEROL FS 2.5 MG/0.5 ML VIAL.NEB ONE (23:25)
[2021-07-07] MEDS: IPRATROPIUM NEB FS 0.5 MG/2.5 ML AMPUL.NEB NEB SCH (23:30)
[2021-07-08] MEDS ORDERED: CEFEPIME 1 GM VIAL ONE (01:27)
[2021-07-08] MEDS: CEFEPIME 1 GM in IV D5W 50 ML IV SCH ×2 (01:57→12:54)
[2021-07-08] MEDS ORDERED: ALBUTEROL FS 2.5 MG/0.5 ML VIAL.NEB ONE (03:38)
[2021-07-08] MEDS ORDERED: IPRATROPIUM NEB FS 0.5 MG/2.5 ML AMPUL.NEB ONE (03:38)
[2021-07-08] MEDS: IPRATROPIUM NEB FS 0.5 MG/2.5 ML AMPUL.NEB NEB SCH ×6 (03:42→23:30)
[2021-07-08] MEDS: ALBUTEROL FS 2.5 MG/0.5 ML VIAL.NEB NEB SCH ×6 (03:42→23:30)
--- NOTE | 2021-07-08 04:01 | NUR ---
ENVIRONMENTAL HEALTH TECHNOLOGIST @ BEDSIDE.
[2021-07-08] MEDS ORDERED: ACETAMINOPHEN ES 500 MG TABLET ONE ×2 (04:24→08:55)
[2021-07-08 04:41] LABS: BASOPHILS % (AUTO) 0.1 % (0.0-2.0); EOSINOPHILS % (AUTO) 0.1 % (0.0-6.0); HEMATOCRIT 29 % (33-45); HEMOGLOBIN 9.5 g/dL (11.5-14.8); LYMPHOCYTES # (AUTO) 0.2 K/uL (0.8-4.8); LYMPHOCYTES % (AUTO) 1.3 % (20.0-44.0); MEAN CORPUSCULAR HGB CONC 33 g/dl (31.0-36.0); MEAN CORPUSCULAR VOLUME 95 fL (82-100); MONOCYTES # (AUTO) 0.2 K/uL (0.1-1.30); MONOCYTES % (AUTO) 1.1 % (2.0-12.0); NEUTROPHILS # (AUTO) 14.7 K/uL (1.8-8.9); NEUTROPHILS % (AUTO) 97.4 % (43.0-81.0); PLATELET COUNT (AUTO) 153 K/uL (150-450); RED BLOOD CELL COUNT(AUTO) 3.01 MIL/uL (4.0-5.2); WHITE BLOOD COUNT (AUTO) 15.1 K/uL (4.3-11.0)
[2021-07-08 05:11] LABS: ALANINE AMINOTRANSFERASE 174 U/L (12-78); ALBUMIN 2.5 g/dL (3.4-5.0); ALKALINE PHOSPHATASE 244 U/L (46-116); ASPARTATE AMINOTRANSFERASE 217 U/L (15-37); BILIRUBIN,TOTAL 2.7 mg/dL (0.2-1.0); CALCIUM, SERUM 8.6 mg/dL (8.5-10.1); CARBON DIOXIDE 31 mmol/L (21-32); CHLORIDE 95 mmol/L (98-107); CREATININE 1.7 mg/dL (0.6-1.3); GLUCOSE 173 mg/dL (74-106); PHOSPHORUS 4.5 mg/dL (2.5-4.9); POTASSIUM 3.6 mmol/L (3.5-5.1); SODIUM SERUM 137 mmol/L (136-145); TOTAL PROTEIN, SERUM 5.8 g/dL (6.4-8.2); UREA NITROGEN, BLOOD 19 mg/dL (7-18)
[2021-07-08 05:18] LABS: CHOLESTEROL 155 mg/dL (<200); HDL CHOLESTEROL 86 mg/dL (40-60); LDL 63 mg/dL (0-99); THYROID STIMULATING HORMONE 0.118 uIU/mL (0.358-3.74); TRIGLYCERIDES 67 mg/dL (30-150)
[2021-07-08 06:10] LABS: ABG BASE EXCESS 6.2 mmol/L; ABG OXYGEN SATURATION 96.2 % (92.0-98.5); ABG PCO2 44.3 mmHg (35.0-45.0); ABG PH 7.459 (7.350-7.450); ABG PO2 88.4 mmHg (75.0-100.0); AaDO2 73.5 mmHg; COHb 0.1 % (0.5-1.5); MetHb 0.4 % (0.0-1.5); O2Hb 95.7 % (94.0-97.0); SITE, ABG Left Radial; VENT MODE, BG ST 15/5 R16 30%
--- NOTE | 2021-07-08 06:22 | NUR ---
RT pt off bipap post abg results. placed on 3lnc. seth, charge nurse, notified.
[2021-07-08] MEDS ORDERED: LEVOTHYROXINE SODIUM 125 MCG TABLET PO SCH ×2 (07:30)
--- NOTE | 2021-07-08 07:59 | NUR ---
THE PATIENT ALERT AND ORIENTED X2. DENIES PAIN. RECEIVING OXYGEN AT 3L/MIN VIA NASAL CANNULA AND DENIES SOB. RESPIRATION REGULAR AND UNLABORED. WILL CONTINUE TO MONITOR THE PATIENT.
[2021-07-08] MEDS ORDERED: LEVOTHYROXINE SODIUM 100 MCG TABLET ONE (08:12)
[2021-07-08] MEDS ORDERED: DOCUSATE SODIUM 100 MG CAPSULE PO ONE (08:12)
[2021-07-08] MEDS ORDERED: CLOPIDOGREL BISULFATE 75 MG TABLET ONE (08:12)
[2021-07-08] MEDS ORDERED: methylPREDNISolone SOD SUCC 125 MG/2ML VIAL ONE (08:12)
--- NOTE | 2021-07-08 08:19 | NUR ---
PER DR BRAGA THE PATIENT DOWNGRADED FROM ICU TO TELE.
[2021-07-08] MEDS: DOCUSATE SODIUM 100 MG CAPSULE PO SCH ×2 (08:21→17:13)
[2021-07-08] MEDS: CLOPIDOGREL BISULFATE 75 MG TABLET PO SCH (08:21)
[2021-07-08] MEDS: ALLOPURINOL 100 MG TABLET PO SCH (08:21)
[2021-07-08] MEDS: LEVOTHYROXINE SODIUM 100 MCG TABLET PO SCH (08:21)
[2021-07-08] MEDS ORDERED: methylPREDNISolone SOD SUCC 125 MG/2ML VIAL IV SCH (09:00)
[2021-07-08] MEDS: ACETAMINOPHEN ES 500 MG TABLET PO PRN ×2 (09:00→14:55)
--- NOTE | 2021-07-08 09:01 | NUR ---
PATIENTS NEEDS ATTENDED. C/O MILD HEADACHE, TYLENOL PROVIDED.
[2021-07-08 09:30] LABS: THYROID STIMULATING HORMONE 0.114 uIU/mL (0.358-3.74)
--- NOTE | 2021-07-08 13:16 | NUR ---
ROOM 106
--- NOTE | 2021-07-08 13:29 | NUR ---
REPORT GIVEN TO REJI MENDOZA FROM TELE [facility].
--- NOTE | 2021-07-08 13:55 | NUR ---
PATIENT ALERT, ORIENTED X3, BREATHING EVEN AND UNLABORED, ON O2 AT 3LPM VIA NC. TRANSFERRED TO ROOM 106 VIA ACLS PROTOCOL.
--- NOTE | 2021-07-08 14:00 | NUR ---
RN NOTE PT ADMITTED FROM ER AND PLACED INTO RM 106. PT STABLE. RECEIVING 3L OF O2. SAT > 95%. PT PLACED ON TELE NSR HR 107 BP 165/77. SKIN INTACT AND NO WOUNDS NOTED. SLIGHT EDEMA NOTED ON BOTH FEET. CHAVEZ INTACT. CALL LIGHT ON, BED AT LOWEST POSITION. WILL CONTINUE TO MONITOR
[2021-07-08] MEDS ORDERED: VANCOMYCIN 1 GM in IV D5W 250 ML IV SCH (17:00)
[2021-07-08] MEDS: ALPRAZOLAM 0.25 MG TABLET PO PRN (17:13)
--- NOTE | 2021-07-08 17:26 | NUR ---
RN NOTE PT SPOKE WITH SON, WILL BRING DNR AND ADVANCED DIRECTIVES FOR PT
--- NOTE | 2021-07-08 17:56 | NUR ---
Pt complains of pain unrelieved after administration of tylenol, 06/15 on neck/hands/head states she has fibromyalgia as well. MD Dr. Castañeda gave order for flexeril 10mg po q8h. Noted and carried out.
[2021-07-08 18:00] VITALS: BP 165/77
--- NOTE | 2021-07-08 18:31 | NUR ---
RN CLOSING NOTES PT STABLE IB BED WITH 3L O2 AND SAT >95%. PT HAS A PACEMAKER AND IS ON TELE. TSR WITH HR OF 107. PT IS A/O X4. PT HAS CHAVEZ CATHETER AND HAS TOTAL URINE OUTPUT OF 350 ML. PT HAS ROX PIC 18G AND L AC IV. BOTH INTACT AND FLUSHING. PT IS ON LOW BED POSITION, CALL LIGHT WITHIN REACH, AND SAFETY MEASURES HAVE BEEN APPLIED. WILL CONTINUE TO MONITOR.
--- NOTE | 2021-07-08 19:30 | NUR ---
RN NOTE RECEIVED PT IN BED, WATCHING TV ALERT AND ORIENTED X4. ON O2 AT 3L. SATING AT 96% PT DENIES ANY SOB AT THIS TIME. ON TELE MONITORING SHOWS SINUS TACH WITH HR OF 103. DENIES CHEST PAIN, COMPLAINS OF THROBBING HEADACHE WHICH IS NOT NEW TO THE PT, MENTIONED THAT SHE HAD IT FOR YEARS. DENIES ANY NAUSEA OR DIZZINESS. CHAVEZ IN PLACE, DRAINING CLEAR URINE OUTPUT. WILL CONTINUE TO MONITOR. ALL SAFETY MEASURES IN PLACE. CALL LIGHT WITHIN REACH.
[2021-07-08 20:00] VITALS: BP 188/94
--- NOTE | 2021-07-08 20:07 | NUR ---
RN NOTE PT NOTED WITH ELEVATED BP 188/94. HR 110. PT REPORTED SHE'S ON METOPROLOL TARTRATE 100 MG BID AT HOME. NOTIFIED CRIB PAD MAKER LARGE ANIMAL VETERINARIAN TAYLER. ORDERED TO GIVE METOPROLOL NOW AND ALSO ORDERED HYDRALAZINE 10MG IV PRN FOR SBP >160. LARGE ANIMAL VETERINARIAN ORDERED TO GIVE HYDRALAZINE 1HR AFTER METOPROLOL IF BP IS STILL HIGH. WILL CONTINUE TO MONITOR.
[2021-07-08] MEDS: CYCLOBENZAPRINE 10 MG TABLET PO SCH (20:22)
[2021-07-08] MEDS: METOPROLOL TARTRATE 50 MG TABLET PO SCH (20:22)
[2021-07-08] MEDS: ENOXAPARIN SODIUM 30 MG/0.3 ML DISP.SYRIN SQ SCH (20:23)
[2021-07-08] MEDS ORDERED: hydrALAZINE HCL IV 20 MG VIAL IV PRN (20:30)
[2021-07-09] VITALS: BP 147/72
[2021-07-09] MEDS: CEFEPIME 1 GM in IV D5W 50 ML IV SCH ×2 (01:05→12:00)
[2021-07-09] MEDS: ACETAMINOPHEN ES 500 MG TABLET PO PRN ×2 (03:24→08:14)
[2021-07-09] MEDS: ALBUTEROL FS 2.5 MG/0.5 ML VIAL.NEB NEB SCH ×6 (03:29→23:33)
[2021-07-09] MEDS: IPRATROPIUM NEB FS 0.5 MG/2.5 ML AMPUL.NEB NEB SCH ×6 (03:29→23:33)
[2021-07-09 04:00] VITALS: BP 159/77
[2021-07-09] MEDS: CYCLOBENZAPRINE 10 MG TABLET PO SCH ×3 (05:31→21:33)
--- NOTE | 2021-07-09 06:53 | NUR ---
RN NOTE PT SLEEPING AROUSES EASILY. CONTINUE ON O2 THERAPY OF 3L VIA NC. NOT IN ANY DISTRESS, DENIES ANY SOB. ABLE TO MAKE NEEDS KNOWN. REMAIN AFEBRILE. STILL COMPLAINS OF HEADACHE BUT BETTER THAN LAST NIGHT. ASSISTED ON ADLS. CHAVEZ DRAINING WELL. WILL ENDORSE TO NEXT SHIFT NURSE FOR RENAE.
[2021-07-09 07:54] LABS: BASOPHILS % (AUTO) 0.1 % (0.0-2.0); HEMATOCRIT 27 % (33-45); HEMOGLOBIN 9.5 g/dL (11.5-14.8); LYMPHOCYTES # (AUTO) 0.5 K/uL (0.8-4.8); LYMPHOCYTES % (AUTO) 4.1 % (20.0-44.0); MEAN CORPUSCULAR HGB CONC 35 g/dl (31.0-36.0); MEAN CORPUSCULAR VOLUME 92 fL (82-100); MONOCYTES # (AUTO) 0.7 K/uL (0.1-1.30); MONOCYTES % (AUTO) 6.1 % (2.0-12.0); NEUTROPHILS # (AUTO) 10.9 K/uL (1.8-8.9); NEUTROPHILS % (AUTO) 89.7 % (43.0-81.0); PLATELET COUNT (AUTO) 168 K/uL (150-450); RED BLOOD CELL COUNT(AUTO) 2.97 MIL/uL (4.0-5.2); WHITE BLOOD COUNT (AUTO) 12.1 K/uL (4.3-11.0)
[2021-07-09 07:59] LABS: CALCIUM, SERUM 8.5 mg/dL (8.5-10.1); CARBON DIOXIDE 34 mmol/L (21-32); CHLORIDE 95 mmol/L (98-107); CREATININE 1.5 mg/dL (0.6-1.3); GLUCOSE 108 mg/dL (74-106); SODIUM SERUM 135 mmol/L (136-145); UREA NITROGEN, BLOOD 31 mg/dL (7-18)
[2021-07-09 08:00] VITALS: BP 174/76
--- NOTE | 2021-07-09 08:00 | NUR ---
RN OPENING NOTE PT STABLE AND RECEIVING 2L OF 02 AND SAT >95%. PT HAS A REGULAR DIET. PT IS A/OX4 AND COMPLAINS OF NERVE PAIN. PT B/P IS 174/76 AND WILL RECHECK WITHIN AN HOUR IF HYDRALAZINE IS NEEDED. PT HR IS 84. PT LEFT ON LOWEST POSITION AND CALL LIGHT WITHIN REACH.
[2021-07-09] MEDS: LEVOTHYROXINE SODIUM 100 MCG TABLET PO SCH (08:04)
[2021-07-09] MEDS: DOCUSATE SODIUM 100 MG CAPSULE PO SCH ×2 (08:04→16:12)
[2021-07-09] MEDS: ALLOPURINOL 100 MG TABLET PO SCH (08:04)
[2021-07-09 08:05] LABS: ALANINE AMINOTRANSFERASE 152 U/L (12-78); ALBUMIN 2.5 g/dL (3.4-5.0); ALKALINE PHOSPHATASE 191 U/L (46-116); ASPARTATE AMINOTRANSFERASE 135 U/L (15-37); BILIRUBIN,TOTAL 0.7 mg/dL (0.2-1.0); TOTAL PROTEIN, SERUM 5.7 g/dL (6.4-8.2)
[2021-07-09] MEDS: CLOPIDOGREL BISULFATE 75 MG TABLET PO SCH (08:05)
[2021-07-09] MEDS: METOPROLOL TARTRATE 50 MG TABLET PO SCH ×2 (08:05→16:12)
--- NOTE | 2021-07-09 09:16 | NUR ---
PT BP 138/64. NO HYDRALAZINE NEEDED AT THE MOMENT
[2021-07-09] MEDS: ALPRAZOLAM 0.25 MG TABLET PO PRN (14:42)
[2021-07-09 16:00] VITALS: BP 174/76
--- NOTE | 2021-07-09 17:43 | NUR ---
RN CLOSING NOTES PT STABLE AND A/O X4. PT STATE PAIN 3 OUT OF 10. GIVEN TYLENOL AND XANAX FOR PAIN. SAT >95% AND ON 2L. UNLABORED BREATHING. CHAVEZ OUTPUT OF 250 ML. PT NOT ON TELE ANYMORE AND HAS HR OF 84. PT LEFT ON LOW BED POSITION AND CALL LIGHT WITHIN REACH
--- NOTE | 2021-07-09 19:50 | NUR ---
RN NOTE PT RECEIVED IN BED. CURRENTLY ON 2L OF O2 VIA NC SHOWING NO S/S OF RESP DISTRESS. PT IS A/OX3-4. LEFT PACEMAKER NOTED. CHAVEZ CATH NOTED. PT HAS RIGHT UPPER ARM PICC LINE AND RIGHT AC GAUGE 18. IV LINES FLUSHED, PATENT, AND INTACT WITH NO SIGNS OF INFILTRATION. ALL SAFETY MEASURES IMPLEMENTED. CALL LIGHT WITHIN REACH. BED ALARM ON. BED LOCKED AND IN LOWEST POSITION. WILL CONTINUE TO MONITOR THROUGHOUT THE SHIFT.
[2021-07-09 20:00] VITALS: BP 122/60
[2021-07-09] MEDS: ENOXAPARIN SODIUM 30 MG/0.3 ML DISP.SYRIN SQ SCH (21:33)
[2021-07-10] MEDS: CEFEPIME 1 GM in IV D5W 50 ML IV SCH ×2 (01:02→14:12)
[2021-07-10] MEDS: ACETAMINOPHEN ES 500 MG TABLET PO PRN ×2 (02:07→09:46)
[2021-07-10 04:00] VITALS: BP 126/57
--- NOTE | 2021-07-10 04:05 | NUR ---
RN NOTE REPORT GIVEN TO REJI ANGULO AT 3W.
[2021-07-10] MEDS: CYCLOBENZAPRINE 10 MG TABLET PO SCH ×2 (04:10→14:12)
--- NOTE | 2021-07-10 04:25 | NUR ---
RN NOTE PT TRANSFERRED TO [facility] FOR RENAE.
[2021-07-10 04:35] VITALS: BP 150/69
[2021-07-10] MEDS: ALBUTEROL FS 2.5 MG/0.5 ML VIAL.NEB NEB SCH ×5 (04:36→19:52)
[2021-07-10] MEDS: IPRATROPIUM NEB FS 0.5 MG/2.5 ML AMPUL.NEB NEB SCH ×5 (04:36→19:52)
--- NOTE | 2021-07-10 04:40 | NUR ---
Patient received in room 327-1 at 0430. VSS. Denies pain but states she is starting to feel nervous and wants her Xanax. Will medicate patient as per order. No signs of distress. RT at bedside too O2 99%. tolerating breathing treatment well. RAC #18G will not flush. removed. Patient still has PICC LINE KEMAR. Flushed and patent.
[2021-07-10] MEDS: ALPRAZOLAM 0.25 MG TABLET PO PRN (04:44)
--- NOTE | 2021-07-10 04:45 | NUR ---
oriented to unit, protocols, staff members.
--- NOTE | 2021-07-10 07:03 | NUR ---
Patient able to calm down and get some more rest after PRN Xanax. Easy to wake. A&Ox4. Adjusting to unit well. No SOB or signs of distress.
[2021-07-10 07:26] LABS: CALCIUM, SERUM 8.5 mg/dL (8.5-10.1); CARBON DIOXIDE 36 mmol/L (21-32); CHLORIDE 97 mmol/L (98-107); CREATININE 1.6 mg/dL (0.6-1.3); GLUCOSE 84 mg/dL (74-106); POTASSIUM 3.7 mmol/L (3.5-5.1); SODIUM SERUM 135 mmol/L (136-145); UREA NITROGEN, BLOOD 30 mg/dL (7-18)
[2021-07-10 08:00] VITALS: BP 149/65
[2021-07-10] MEDS: ALLOPURINOL 100 MG TABLET PO SCH (09:33)
[2021-07-10] MEDS: DOCUSATE SODIUM 100 MG CAPSULE PO SCH ×2 (09:34→18:38)
[2021-07-10] MEDS: CLOPIDOGREL BISULFATE 75 MG TABLET PO SCH (09:34)
[2021-07-10] MEDS: METOPROLOL TARTRATE 50 MG TABLET PO SCH ×2 (09:34→18:38)
--- NOTE | 2021-07-10 09:46 | NUR ---
given tyl. extra strength for headache.
[2021-07-10 16:00] VITALS: BP 162/71
--- NOTE | 2021-07-10 18:00 | NUR ---
no acute distress,vs stable. no complaints offered. report call to rn at [facility].
--- NOTE | 2021-07-10 19:45 | NUR ---
MS RN OPENING NOTES: RECEIVED PATIENT AWAKE IN BED, BED IN LOW POSITION CALL LIGHTS WITHIN REACH, NO COMPLAIN OF PAIN AND DISCOMFORT AT THIS TIME, PATIENT DUE TO TRANSFER TO [facility] AWAITING FOR TRANSPORTATION, ALL PAERS PREPARE C/O AM NURSE, ALL NEEDS MET KEPT CLEAN AND DRY WILL CONTINUE TO MONITOR.
[2021-07-10 20:00] VITALS: BP 156/71
--- NOTE | 2021-07-10 20:26 | NUR ---
MS SPECIAL ORDER JEWELER NOTES: PATIENT WAS TRANSFER TO [facility] ON [facility] VIA [facility]. ON STABLE CONDITION AT 2009, V/S ARE ON STABLE CONDITION BP-156/71 P-90, O2 SAT 97% AT 2LPM, TEMP 97.5 RR-20, HOSPITAL TAG REMOVE, PATIENT LEFT AT 2009, CALLED SON ROSEY AND MADE AWARE.
== END 2021-07-10 20:12 | DRG 871 ==
LOC: ER 16:21 → TRANSITION 23:03 → MEDSG1 23:03 → UNDOADMIN 23:03 → TRANSITION 07-08 13:28 → TELE1 07-08 13:28 → MEDSG1 07-09 08:12 → TELE1 07-09 08:12 → MEDSG1 07-10 04:35 → MED 07-10 04:35 → UNDODISIN 07-10 20:12
PROVIDERS: ADMIT Internal Medicine; ATTEND Internal Medicine
PROC: 02HV33Z Insertion of Infusion Device into Superior Vena Cava, Percutaneous Approach (ICD-10-PCS; principal; 2021-07-07)
DX: A41.9 Sepsis, unspecified organism (principal); J15.6 Pneumonia due to other Gram-negative bacteria; J96.21 Acute and chronic respiratory failure with hypoxia; G93.41 Metabolic encephalopathy; N17.0 Acute kidney failure with tubular necrosis; J96.22 Acute and chronic respiratory failure with hypercapnia; J44.0 Chronic obstructive pulmonary disease with (acute) lower respiratory infection; D68.59 Other primary thrombophilia; I13.0 Hypertensive heart and chronic kidney disease with heart failure and stage 1 through stage 4 chronic kidney disease, or unspecified chronic kidney disease; J44.1 Chronic obstructive pulmonary disease with (acute) exacerbation; E03.9 Hypothyroidism, unspecified; F32.9 Major depressive disorder, single episode, unspecified; I25.10 Atherosclerotic heart disease of native coronary artery without angina pectoris; Z86.73 Personal history of transient ischemic attack (TIA), and cerebral infarction without residual deficits; Z20.822 Contact with and (suspected) exposure to COVID-19; Z90.710 Acquired absence of both cervix and uterus; Z85.41 Personal history of malignant neoplasm of cervix uteri; M19.90 Unspecified osteoarthritis, unspecified site; Z88.5 Allergy status to narcotic agent; Z88.8 Allergy status to other drugs, medicaments and biological substances; Z91.040 Latex allergy status; Z91.011 Allergy to milk products; Z79.899 Other long term (current) drug therapy; Z95.0 Presence of cardiac pacemaker; Z79.02 Long term (current) use of antithrombotics/antiplatelets; Z87.891 Personal history of nicotine dependence; N18.9 Chronic kidney disease, unspecified; D64.9 Anemia, unspecified; D69.6 Thrombocytopenia, unspecified; R74.01 Elevation of levels of liver transaminase levels; K76.0 Fatty (change of) liver, not elsewhere classified; I70.0 Atherosclerosis of aorta; F41.9 Anxiety disorder, unspecified; Z74.09 Other reduced mobility; I50.9 Heart failure, unspecified
CPT/HCPCS: 36415; 36569; 36600; 70450-TC; 70496-TC; 70498-TC; 71045-TC; 76700-TC; 80048-TC; 80053-TC; 80061-TC; 80076-TC; 80202-TC; 81001; 82803-TC; 82962-TC; 83605-TC; 83880; 84100-TC; 84439-TC; 84443-TC; 84484-TC; 85025-TC; 85730-TC; 87040-TC; 87081-TC; 87086-TC; 94660; 94799-TC; 97116-TC; 97530-TC; C9803; G0378; J0360; J0692; J1650; J2543; J2930; J3370; J7050; J7060; Q9967; U0003